=== PATIENT | male | born 1935 | race Caucasian/White ===

== ENCOUNTER → 2016-11-10 | Outpatient (CLI) | payer MEDICARE ==
[~2016-11-10] MED LIST: ACET-311; ASPI-3 PO; ATOR20TA58; CLOP75TA; DOXA4TAB3; FENO160T; LISI10TA2; METF500T4; METO50TA2; MULT-658
--- NOTE | 2016-11-10 15:56 | CARD ---
APPROVED REPORT EXAM: Two-dimensional and M-mode echocardiogram with Doppler and color Doppler. Other Information Quality : Average Rhythm : Pacemaker INDICATION Dyspnea Fatigue Cardiomyopathy 2D DIMENSIONS RVDd2.6 (2.9-3.5cm)Left Atrium(2D)3.1 (1.6-4.0cm) IVSd1.2 (0.7-1.1cm)Aortic Root(2D)3.4 (2.0-3.7cm) LVDd5.4 (3.9-5.9cm)LVOT Diameter2.1 (1.8-2.4cm) PWd1.2 (0.7-1.1cm)LVDs4.9 (2.5-4.0cm) SV28.5 mlLVEF(%)38.0 (>50%) Aortic Valve AoV Peak Zoran.98.6cm/sAoV VTI21.0cm AO Peak GR.3.9mmHgLVOT Peak Zoran.76.4cm/s AO Mean GR.2mmHgAVA (VMAX)2.63cm2 AI P 1/2 Mclv182dk Mitral Valve MV E Zyjynijb12.7cm/sMV DECEL DTTI114an MV A Jtgiywpl24.6cm/sMV BWZ18kk E/A Ratio1.1MV A Hvdrbdog084ik MVA (PHT)4.36cm2 Tricuspid Valve TR P. Xhwzkaai464hy/sRAP BWIBLDDN5bdTn TR Peak Gr.17pjThEIBP85stBr LEFT VENTRICLE The left ventricle is normal size. There is borderline concentric left ventricular hypertrophy. Left ventricle systolic function is moderately impaired. The Ejection Fraction is 38%. There is global hyp okinesis of the left ventricle more moderate in the basal inferior wall. The left ventricular diastol ic function and filling is normal for age. RIGHT VENTRICLE The right ventricle is normal size. The right ventricular systolic function is normal. There is a pac emaker/ICD lead in the RV/RA. ATRIA The left atrium size is normal. The right atrium size is normal. The interatrial septum is intact wit h no evidence for an atrial septal defect or patent foramen ovale as noted on 2-D or Doppler imaging. AORTIC VALVE The aortic valve is calcified but opens well. The aortic valve is trileaflet. Doppler and Color Flow revealed mild aortic regurgitation. There is no significant aortic valvular stenosis. MITRAL VALVE Mitral annular calcification is mild to moderate. There is no mitral valve stenosis. Doppler and Gueydan r Flow revealed mild mitral regurgitation. TRICUSPID VALVE The tricuspid valve is normal in structure Doppler and Color Flow revealed mild tricuspid regurgitati on. The PA pressure was estimated at 26 mmHg. There is no tricuspid valve stenosis. PULMONIC VALVE The pulmonic valve is not well visualized. Doppler and Color Flow revealed mild pulmonic valvular reg urgitation. There is no pulmonic valvular stenosis. GREAT VESSELS The aortic root is normal in size. The IVC is normal in size and collapses >50% with inspiration. PERICARDIAL EFFUSION There is no evidence of significant pericardial effusion. Critical Notification Critical Value: No <Conclusion> Left ventricle systolic function is moderately impaired. The Ejection Fraction is 38%. There is global hypokinesis of the left ventricle more moderate in the basal inferior wall. There is borderline concentric left ventricular hypertrophy. The left atrium size is normal. The right atrium size is normal. The aortic valve is calcified but opens well. The aortic valve is trileaflet. Doppler and Color Flow revealed mild aortic regurgitation. Mitral annular calcification is mild to moderate. Doppler and Color Flow revealed mild mitral regurgitation. Doppler and Color Flow revealed mild tricuspid regurgitation. The PA pressure was estimated at 26 mmHg. Doppler and Color Flow revealed mild pulmonic valvular regurgitation. There is no evidence of significant pericardial effusion.
== END | disposition home or self-care (01) ==
LOC: ECHO 13:24
PROVIDERS: ATTEND Internal Medicine Cardiovascular Disease
DX: I08.3 Combined rheumatic disorders of mitral, aortic and tricuspid valves (principal)
CPT/HCPCS: 93306

== ENCOUNTER → 2017-05-12 | Outpatient (CLI) | payer MEDICARE ==
--- NOTE | 2017-05-12 13:58 | CARD ---
APPROVED REPORT EXAM: Two-dimensional and M-mode echocardiogram with Doppler and color Doppler. Other Information Quality : Good INDICATION Cardiomyopathy Murmur 2D DIMENSIONS Left Atrium(2D)3.2 (1.6-4.0cm)IVSd1.3 (0.7-1.1cm) Aortic Root(2D)4.0 (2.0-3.7cm)LVDd4.5 (3.9-5.9cm) LVOT Diameter2.2 (1.8-2.4cm)PWd1.2 (0.7-1.1cm) LVDs3.1 (2.5-4.0cm)FS (%) 30.3 % SV54.0 mlLVEF(%)58.0 (>50%) Aortic Valve AoV Peak Zoran.112.9cm/sAoV VTI24.9cm AO Peak GR.5.1mmHgLVOT Peak Zoran.64.1cm/s AO Mean GR.3mmHgAVA (VMAX)2.15cm2 CARL (VTI)2.64ck6YY P 1/2 Iwvm718ls Mitral Valve MV E Vwnukfhv07.5cm/sMV DECEL YMHK021ad MV A Vgupmqxp51.9cm/sE/A Ratio0.5 Tricuspid Valve TR P. Voqxjiak266nb/sRAP IVUNBBNS0iaHu TR Peak Gr.79asFiSDHU50esNs LEFT VENTRICLE The left ventricle is normal size. There is mild concentric left ventricular hypertrophy. Left ventri kelli systolic function is low normal. The estimated Ejection Fraction is 58%. There is mild to moderat e hypokinesis in the mid septal wall. Septal motion consistent with post-operative state. Transmitral Doppler flow pattern is Grade I-abnormal relaxation pattern. RIGHT VENTRICLE The right ventricle is normal size. The right ventricular systolic function is normal. Defibulator wi re seen in right ventricle and right atria. ATRIA The left atrium size is normal. The right atrium size is normal. The interatrial septum is intact wit h no evidence for an atrial septal defect or patent foramen ovale as noted on 2-D or Doppler imaging. AORTIC VALVE The aortic valve is mildly thickened but opens well. Doppler and Color Flow revealed mild aortic regu rgitation. There is no significant aortic valvular stenosis. MITRAL VALVE The mitral valve is mildly thickened. There is no evidence of mitral valve prolapse. There is no mitr al valve stenosis. Doppler and Color-flow revealed mild mitral regurgitation. TRICUSPID VALVE The tricuspid valve is normal in structure Doppler and Color Flow revealed mild tricuspid regurgitati on. There is no pulmonary hypertension. The PA pressure was estimated at 27 mmHg. There is no tricusp id valve stenosis. PULMONIC VALVE The pulmonic valve is mildly thickened. Doppler and Color Flow revealed mild pulmonic valvular regurg itation. There is no pulmonic valvular stenosis. GREAT VESSELS The aortic root appears mildly dilatedl in size. The ascending aorta is normal in size. The IVC is no rmal in size and collapses >50% with inspiration. PERICARDIAL EFFUSION There is no pleural effusion. There is no evidence of significant pericardial effusion. Critical Notification Critical Value: No <Conclusion> There is mild to moderate hypokinesis in the mid septal wall. Septal motion consistent with post-operative state. Transmitral Doppler flow pattern is Grade I-abnormal relaxation pattern. Defibulator wire seen in right ventricle and right atria. The left atrium size is normal. The right atrium size is normal. The aortic valve is mildly thickened but opens well. Doppler and Color Flow revealed mild aortic regurgitation. Doppler and Color-flow revealed mild mitral regurgitation. Doppler and Color Flow revealed mild tricuspid regurgitation. There is no pulmonary hypertension. The PA pressure was estimated at 27 mmHg. Doppler and Color Flow revealed mild pulmonic valvular regurgitation. The aortic root appears mildly dilatedl in size. There is no evidence of significant pericardial effusion.
== END | disposition home or self-care (01) ==
LOC: ECHO 08:30
PROVIDERS: ATTEND Internal Medicine Cardiovascular Disease
DX: I08.3 Combined rheumatic disorders of mitral, aortic and tricuspid valves (principal); I42.9 Cardiomyopathy, unspecified; I25.5 Ischemic cardiomyopathy; R01.1 Cardiac murmur, unspecified
CPT/HCPCS: 93306

== ENCOUNTER 2017-12-07 10:10 | Outpatient (CLI) | payer MEDICARE ==
[2017-12-07 11:07] LABS: ANION GAP 8 (6-14); BLOOD UREA NITROGEN 15 mg/dL (8-26); CALCIUM 9.1 mg/dL (8.5-10.1); CARBON DIOXIDE 29 mmol/L (21-32); CHLORIDE 109 mmol/L (98-107); CREATININE 1.4 mg/dL (0.7-1.3); GFR 48.8; GLUCOSE 114 mg/dL (70-99); POTASSIUM 4.8 mmol/L (3.5-5.1); SODIUM 146 mmol/L (136-145)
[2017-12-07 11:16] LABS: HEMATOCRIT 37.4 % (39.0-53.0); HEMOGLOBIN 12.7 g/dL (13.0-17.5); MEAN CORPUSCULAR HEMOGLOBIN 30 pg (25-35); MEAN CORPUSCULAR HGB CONC 34 g/dL (31-37); MEAN CORPUSCULAR VOLUME 87 fL (79-100); PLATELET COUNT 146 x10^3/uL (140-400); RED BLOOD COUNT 4.28 x10^6/uL (4.30-5.70); RED CELL DISTRIBUTION WIDTH 13.3 % (11.5-14.5); WHITE BLOOD COUNT 5.4 x10^3/uL (4.0-11.0)
[2017-12-07 11:26] LABS: INR 1.1 (0.8-1.1); PROTHROMBIN TIME PATIENT 13.8 SEC (11.7-14.0)
[2017-12-07] MEDS ORDERED: LIDOCAINE 2%/EPI 1:100,000 20 ML VIAL. (12:04)
[2017-12-07] MEDS ORDERED: fentaNYL PF VIAL 100 MCG/2 ML VIAL (13:01)
[2017-12-07] MEDS: BACITRACIN 50,000 UNIT in IV NORMAL SALINE 250ML 250 ML IRR (13:50)
[2017-12-07] MEDS: LIDOCAINE 2%/EPI 1:100,000 20 ML VIAL. IJ (13:50)
[2017-12-07] MEDS: ceFAZolin SODIUM IV Push 1 GM VIAL. IVP (13:50)
[2017-12-07] MEDS: fentaNYL PF VIAL 100 MCG/2 ML VIAL IV (13:51)
[2017-12-07] MEDS: MIDAZOLAM HCL/PF 2 MG/2 ML VIAL. IV (13:51)
== END 2017-12-07 15:15 | disposition home or self-care (01) ==
LOC: CCL 10:10
DX: Z45.02 Encounter for adjustment and management of automatic implantable cardiac defibrillator (principal); I49.5 Sick sinus syndrome; I11.0 Hypertensive heart disease with heart failure; I50.9 Heart failure, unspecified; I25.10 Atherosclerotic heart disease of native coronary artery without angina pectoris; Z95.1 Presence of aortocoronary bypass graft; Z95.810 Presence of automatic (implantable) cardiac defibrillator; I47.2 Ventricular tachycardia; Z88.1 Allergy status to other antibiotic agents; Z98.42 Cataract extraction status, left eye; Z98.41 Cataract extraction status, right eye; Z95.5 Presence of coronary angioplasty implant and graft; E78.00 Pure hypercholesterolemia, unspecified; K21.9 Gastro-esophageal reflux disease without esophagitis; Z85.46 Personal history of malignant neoplasm of prostate; Z87.440 Personal history of urinary (tract) infections; M19.90 Unspecified osteoarthritis, unspecified site; E11.9 Type 2 diabetes mellitus without complications; F41.9 Anxiety disorder, unspecified; F17.200 Nicotine dependence, unspecified, uncomplicated; Z79.84 Long term (current) use of oral hypoglycemic drugs; Z85.840 Personal history of malignant neoplasm of eye; Z79.899 Other long term (current) drug therapy; I08.0 Rheumatic disorders of both mitral and aortic valves; I42.9 Cardiomyopathy, unspecified; Z83.3 Family history of diabetes mellitus; Z82.49 Family history of ischemic heart disease and other diseases of the circulatory system; Z79.82 Long term (current) use of aspirin; Z91.011 Allergy to milk products
CPT/HCPCS: 33263; 36415; 80048; 85027; 85610; 99152; 99153; C1721; J0690; J2250; J3010; J3490; J7050

== ENCOUNTER → 2018-01-15 | Outpatient (CLI) | payer MEDICARE ==
[2018-01-15] MEDS: IOHEXOL 240 MG/ML 50ML VIAL. PO (08:30)
[2018-01-15] MEDS: IOHEXOL 300 MG/ML 100ML VIAL. IV (09:15)
== END | disposition home or self-care (01) ==
LOC: CT 07:48
DX: I71.4 Abdominal aortic aneurysm, without rupture (principal); K57.30 Diverticulosis of large intestine without perforation or abscess without bleeding; K86.2 Cyst of pancreas; I11.0 Hypertensive heart disease with heart failure; I50.9 Heart failure, unspecified; E11.9 Type 2 diabetes mellitus without complications; E78.5 Hyperlipidemia, unspecified
CPT/HCPCS: 74177; Q9966; Q9967

== ENCOUNTER 2018-02-24 12:46 | Emergency (ER) | payer MEDICARE ==
[~2018-02-24] VITALS: Ht 167.6 cm; Wt 53.1 kg
[~2018-02-24 12:46] MED LIST changes: +DIGO125T PO; -METF500T4; +METF500T5; -METO50TA2; +METO50TA6; +MEXI200C PO; +TAMS0.4C2 PO; +melatonin PO
[2018-02-24 12:55] VITALS: BP 120/81
--- NOTE | 2018-02-24 13:12 | PHYS DOC ---
Past Medical History Past Medical History: Diabetes-Type II, Heart Disease, Hypertension Additional Past Medical Histor: Eye Cancer, Prostate Cancer Past Surgical History: Pacemaker Additional Past Surgical Histo: Prostatectomy, Left Eye Surgery, Defib Placement Alcohol Use: None Drug Use: None Adult General Chief Complaint Chief Complaint: INSECT BITE HPI HPI Patient is an 82 year old male with a history of diabetes whom presents to the ED complaining redness to left lower leg x 1 day ago. States a circular red rash appeared one day ago. States he is unsure if he was bit by something. States it doesnt hurt and isnt warm. [place] and may have been bitten by a tick. Thinks that the rash is close in appearance to the Lyme disease rash. States he never picked a tick off of him. Denies pain, nausea/vomiting, neck pain, photophobia, fever, night sweats, chest pain, shortness of breath, abdominal pain, joint pain, swollen lymph nodes , or weakness. Review of Systems Review of Systems Constitutional: Denies fever or chills [] Eyes: Denies change in visual acuity, redness, or eye pain [] HENT: Denies nasal congestion or sore throat [] Respiratory: Denies cough or shortness of breath [] Cardiovascular: No additional information not addressed in HPI [] GI: Denies abdominal pain, nausea, vomiting, bloody stools or diarrhea [] : Denies dysuria or hematuria [] Musculoskeletal: Denies back pain or joint pain [] Integument: Complains of rash to left lower leg. Denies skin lesions [] Neurologic: Denies headache, focal weakness or sensory changes [] All other systems were reviewed and found to be within normal limits, except as documented in this note. Allergies Allergies Allergies Coded Allergies Type Severity Reaction Last Updated Verified Sulfa (Sulfonamide Antibiotics) Allergy Unknown 02/03/14 Yes Physical Exam Physical Exam Constitutional: Well developed, well nourished, no acute distress, non-toxic appearance. [] HENT: Normocephalic, atraumatic Eyes: PERRLA, EOMI, conjunctiva normal, no discharge. [] Neck: Normal range of motion, no tenderness, supple, no stridor. [] Cardiovascular:Heart rate regular rhythm, no murmur [] Lungs & Thorax: Bilateral breath sounds clear to auscultation [] Abdomen: Bowel sounds normal, soft, no tenderness, no masses, no pulsatile masses. [] Skin: Warm, dry. erythematous annular rash with central clearing to left proximal tibia area. Back: No tenderness, no CVA tenderness. [] Extremities: No tenderness, no cyanosis, no clubbing, ROM intact, no edema. [] Neurologic: Alert and oriented X 3, normal motor function, normal sensory function, no focal deficits noted. [] Psychologic: Affect normal, judgement normal, mood normal. [] Current Patient Data Vital Signs Vital Signs Date Time Temp Pulse Resp B/P (MAP) Pulse Ox O2 Delivery O2 Flow Rate FiO2 02/24/18 12:55 98.5 60 20 120/81 (94) 97 Room Air 98.5 EKG EKG [] Radiology/Procedures Radiology/Procedures [] Course & Med Decision Making Course & Med Decision Making Pertinent Labs and Imaging studies reviewed. (See chart for details) []Erythematous annular like rash with central clearing which would possibly be related to a tick bite. Patient has no systemic symptoms or swollen lymph nodes.. We'll place patient on doxycycline. Patient has follow-up with his PCP tomorrow for blood testing and further evaluation. Discussed symptomatic treatment in the meantime. Discussed follow-up and reasons to return to the ED. Patient understands and agrees with plan. Went bedside. Dragon Disclaimer Dragon Disclaimer This electronic medical record was generated, in whole or in part, using a voice recognition dictation system. Departure Departure Impression: Primary Impression: Rash Disposition: 01 HOME, SELF-CARE Condition: STABLE Referrals: ADRIAN JOHNSON MD (PCP) Patient Instructions: Lyme Disease Scripts Doxycycline Hyclate (DOXYCYCLINE HYCLATE) 100 Mg Tablet. 1 TAB PO BID for 10 Days, #20 TAB Prov: DEV AVERY 02/24/18 DEV AVERY Feb 24, 2018 13:12
[2018-02-24] MEDS ORDERED: DOXY100T9 PO (13:19)
== END 2018-02-24 13:20 | disposition home or self-care (01) ==
LOC: ER 12:46
DX: R21 Rash and other nonspecific skin eruption (principal); E11.9 Type 2 diabetes mellitus without complications; I11.9 Hypertensive heart disease without heart failure; Z95.0 Presence of cardiac pacemaker; Z88.0 Allergy status to penicillin
CPT/HCPCS: 99283

== ENCOUNTER 2018-05-07 14:16 | Inpatient (IN) | payer MEDICARE ==
[~2018-05-07] VITALS: Ht 167.6 cm; Wt 52.2 kg
[~2018-05-07 14:16] MED LIST changes: +CEPH-264 PO; +DOXY100T9 PO; +FLEC50TA PO; +MAGN400T22 PO; +METF500T16; -METF500T5
--- NOTE | 2018-05-07 15:10 | PHYS DOC ---
Past Medical History Past Medical History: Diabetes-Type II, Heart Disease, Hypertension Additional Past Medical Histor: Eye Cancer, Prostate Cancer Past Surgical History: Angioplasty, Coronary Bypass Surgery, Pacemaker Additional Past Surgical Histo: Prostatectomy, Left Eye Surgery, Defib Placement, CARDIAC STENTS Alcohol Use: Occasionally Drug Use: None Adult General Chief Complaint Chief Complaint: AICD FIRED OR SHOCKED HPI HPI Patient is an 83-year-old male with a past history of coronary artery disease, CABG, history of ventricular tachycardia, status post and ICD placement, who presents to the emergency department for evaluation. He states he had just finished doing some yard work and was winding up and rolling up his garden hose , when he began experiencing some dizziness and lightheadedness. He states he did not have any chest pain at the time but this lasted several minutes, and he states he went inside. He states he sat down and felt slightly better although he still felt dizzy, and throughout this entire episode he felt his heart beating fast. He states without warning he felt the defibrillator shock, and after that his symptoms resolved. He is feeling back to his baseline now and has no complaints. He has not had any nausea or vomiting, denies any significant shortness of breath. He states he has had defibrillator discharges in the past, last one was over a year ago. There are no alleviating, or exacerbating factors to his symptoms otherwise. Review of Systems Review of Systems Constitutional: Denies fever or chills [] Eyes: Denies change in visual acuity, redness, or eye pain [] HENT: Denies nasal congestion or sore throat [] Respiratory: Denies cough or shortness of breath [] Cardiovascular: The patient denies any shortness of breath, chest pain, palpitations, or orthopnea. Did report palpitations earlier, terminated by the defibrillator discharge. [] GI: Denies abdominal pain, nausea, vomiting, bloody stools or diarrhea [] : Denies dysuria or hematuria [] Musculoskeletal: Denies back pain or joint pain [] Integument: Denies rash or skin lesions [] Neurologic: Denies headache, focal weakness or sensory changes [] Endocrine: Denies polyuria or polydipsia [] All other systems were reviewed and found to be within normal limits, except as documented in this note. Current Medications Current Medications Current Medications Medications (Trade) Dose Ordered Sig/Deidra Start Time Stop Time Status Last Admin Dose Admin Aspirin (Children'S Aspirin) 324 mg 1X ONCE 05/07/18 15:15 05/07/18 15:16 DC 05/07/18 15:14 324 MG Allergies Allergies Allergies Coded Allergies Type Severity Reaction Last Updated Verified Sulfa (Sulfonamide Antibiotics) Allergy Unknown 02/03/14 Yes Physical Exam Physical Exam PHYSICAL EXAM: CONSTITUTIONAL: Well developed, well nourished HEAD: normocephalic, atraumatic EENT: PERRL, EOMI. Conjunctivae normal color, sclerae non-icteric; moist mucous membranes. NECK: Supple, non-tender; no meningismus. LUNGS: Lungs CTA, breathing even and unlabored. Normal air movement. HEART: Regular rate and rhythm, there is a soft systolic murmur CHEST: No deformity; non-tender ABDOMEN: The abdomen is soft, and non-tender, no masses or bruits. EXTREM: Normal ROM; no deformity, no calf tenderness. Normal pulses palpable in all extremities. There is no pedal edema. SKIN: No rash; no diaphoresis NEURO: Alert; normal speech and cognition; CN's grossly intact; strength grossly intact without focal deficit. BACK: No CVA TTP. Current Patient Data Vital Signs Vital Signs Date Time Temp Pulse Resp B/P (MAP) Pulse Ox O2 Delivery O2 Flow Rate FiO2 05/07/18 14:25 97.3 57 18 148/64 (92) 98 Room Air 97.3 Lab Values Laboratory Tests Test 05/07/18 15:37 White Blood Count 6.0 x10^3/uL (4.0-11.0) Red Blood Count 3.68 x10^6/uL (4.30-5.70) L Hemoglobin 10.7 g/dL (13.0-17.5) L Hematocrit 31.9 % (39.0-53.0) L Mean Corpuscular Volume 87 fL (79-100) Mean Corpuscular Hemoglobin 29 pg (25-35) Mean Corpuscular Hemoglobin Concent 34 g/dL (31-37) Red Cell Distribution Width 14.0 % (11.5-14.5) Platelet Count 198 x10^3/uL (140-400) Neutrophils (%) (Auto) 77 % (31-73) H Lymphocytes (%) (Auto) 11 % (24-48) L Monocytes (%) (Auto) 8 % (0-9) Eosinophils (%) (Auto) 4 % (0-3) H Basophils (%) (Auto) 1 % (0-3) Neutrophils # (Auto) 4.6 x10^3uL (1.8-7.7) Lymphocytes # (Auto) 0.7 x10^3/uL (1.0-4.8) L Monocytes # (Auto) 0.5 x10^3/uL (0.0-1.1) Eosinophils # (Auto) 0.2 x10^3/uL (0.0-0.7) Basophils # (Auto) 0.0 x10^3/uL (0.0-0.2) Sodium Level 140 mmol/L (136-145) Potassium Level 4.4 mmol/L (3.5-5.1) Chloride Level 104 mmol/L (98-107) Carbon Dioxide Level 25 mmol/L (21-32) Anion Gap 11 (6-14) Blood Urea Nitrogen 24 mg/dL (8-26) Creatinine 1.3 mg/dL (0.7-1.3) Estimated GFR (Cockcroft-Gault) 53.0 BUN/Creatinine Ratio 18 (6-20) Glucose Level 114 mg/dL (70-99) H Calcium Level 9.2 mg/dL (8.5-10.1) Magnesium Level 1.6 mg/dL (1.8-2.4) L Total Bilirubin 0.3 mg/dL (0.2-1.0) Aspartate Amino Transferase (AST) 19 U/L (15-37) Alanine Aminotransferase (ALT) 21 U/L (16-63) Alkaline Phosphatase 39 U/L (46-116) L Troponin I Quantitative 0.052 ng/mL (0.000-0.055) Total Protein 6.5 g/dL (6.4-8.2) Albumin 3.1 g/dL (3.4-5.0) L Albumin/Globulin Ratio 0.9 (1.0-1.7) L Laboratory Tests 05/07/18 15:37 Laboratory Tests 05/07/18 15:37 EKG EKG [Normal sinus rhythm at a rate of 57 beats for minute, right axis deviation, right bundle-branch block, inferior Q waves are present. There are no acute ischemic ST/T changes.] Radiology/Procedures Radiology/Procedures [PROCEDURE: PORTABLE CHEST 1V Portable chest, 05/07/2018: HISTORY: Dizziness There has been a previous median sternotomy. A left-sided AICD remains in place with a single lead extending into the right ventricle. Faint wire-like opacities overlying the heart are compatible with old epicardial leads. The heart size and pulmonary vascularity are normal. There is calcific plaquing of the aorta. No pulmonary infiltrate is seen. There is no evidence of pleural fluid. IMPRESSION: No acute cardiopulmonary abnormality is detected.] Course & Med Decision Making Course & Med Decision Making Pertinent Labs and Imaging studies reviewed. (See chart for details) [4:15 PM: The patient's condition remained stable. He has had no further symptoms. Interrogation of his defibrillator confirm that between about 1:33 and 1:39 PM this afternoon, he had 6 separate episodes of ventricular tachycardia. One episode self terminated, and 5 episodes were terminated with antitachycardia pacing after less than 20 seconds. The final episode went on for just under 1 minute, and required a defibrillatory shock after failure of antitachycardia pacing. I discussed the patient with Dr. Rodas, his high risk ob, who states that he has been adjusting the patient's antiarrhythmic medications, and would like him hospitalized for further evaluation and treatment. I spoke with Dr. Meng, covering for the patient's PCP , who will admit the patient.] Dragon Disclaimer Dragon Disclaimer This electronic medical record was generated, in whole or in part, using a voice recognition dictation system. Departure Departure Impression: Primary Impression: Paroxysmal ventricular tachycardia Additional Impressions: Hypomagnesemia Defibrillator discharge Disposition: 09 ADMITTED INPATIENT Admitting Physician: Emmie Meng Condition: STABLE Referrals: ADRIAN JOHNSON MD (PCP) Problem Qualifiers TIARA GOMEZ MD May 07, 2018 15:10
[2018-05-07] MEDS ORDERED: ASPIRIN CHEWABLE 81 MG TABLET. PO ONE (15:15)
[2018-05-07 15:47] LABS: BASO % 1 % (0-3); EOS # 0.2 x10^3/uL (0.0-0.7); EOS % 4 % (0-3); HEMATOCRIT 31.9 % (39.0-53.0); HEMOGLOBIN 10.7 g/dL (13.0-17.5); LYMPH # 0.7 x10^3/uL (1.0-4.8); LYMPH % 11 % (24-48); MEAN CORPUSCULAR HEMOGLOBIN 29 pg (25-35); MEAN CORPUSCULAR HGB CONC 34 g/dL (31-37); MEAN CORPUSCULAR VOLUME 87 fL (79-100); MONO # 0.5 x10^3/uL (0.0-1.1); MONO % 8 % (0-9); NEUT # 4.6 x10^3uL (1.8-7.7); NEUT % 77 % (31-73); PLATELET COUNT 198 x10^3/uL (140-400); RED BLOOD COUNT 3.68 x10^6/uL (4.30-5.70)
[2018-05-07 16:03] LABS: CALCIUM 9.2 mg/dL (8.5-10.1); CREATININE 1.3 mg/dL (0.7-1.3); POTASSIUM 4.4 mmol/L (3.5-5.1)
--- NOTE | 2018-05-07 16:07 | RAD ---
Portable chest, 05/07/2018: HISTORY: Dizziness There has been a previous median sternotomy. A left-sided AICD remains in place with a single lead extending into the right ventricle. Faint wire-like opacities overlying the heart are compatible with old epicardial leads. The heart size and pulmonary vascularity are normal. There is calcific plaquing of the aorta. No pulmonary infiltrate is seen. There is no evidence of pleural fluid. IMPRESSION: No acute cardiopulmonary abnormality is detected. Electronically signed by: Tuan Joya MD (05/07/2018 4:03 PM) [facility]
[2018-05-07 16:09] LABS: ALBUMIN 3.1 g/dL (3.4-5.0); ALBUMIN/GLOBULIN RATIO 0.9 (1.0-1.7); MAGNESIUM 1.6 mg/dL (1.8-2.4); TOTAL BILIRUBIN 0.3 mg/dL (0.2-1.0); TOTAL PROTEIN 6.5 g/dL (6.4-8.2)
[2018-05-07 16:17] LABS: CREATINE KINASE 28 U/L (39-308)
--- NOTE | 2018-05-07 16:19 | EKG ---
[facility] [address] [place] [address] Test Date: 2018-05-07 Test Time: 14:28:40 Pat Name: FRANK VAUGHN Department: Room: Gender: M Technology Director: : 1935 Requested By: TIARA GOMEZ Order Number: [id number] Reading MD: Goran Larson MD Measurements Intervals [place] Rate: 57 P: -90 [place]: 174 QRS: 126 QRSD: 164 T: 3 QT: 462 QTc: 453 Interpretive Statements SINUS RHYTHM RBBB LPFB Electronically Signed On 05-08-2018 9:42:03 CDT by Goran Larson MD
[2018-05-07] MEDS ORDERED: MAGNESIUM SULFATE 1GM 100 ML IV ONE (16:45)
[2018-05-07 18:37] VITALS: BP 174/49
[2018-05-07] MEDS ORDERED: MAGN400C PO (18:46)
[2018-05-07] MEDS: PROPAFENONE 150 MG TABLET. PO SCH (20:50)
[2018-05-07] MEDS: diphenhydrAMINE HCL 25 MG CAPSULE PO SCH (20:50)
[2018-05-07] MEDS: ACETAMINOPHEN 500 MG TABLET PO SCH (20:50)
[2018-05-07] MEDS: ATORVASTATIN CALCIUM 20 MG TABLET PO SCH (20:51)
[2018-05-07] MEDS: metFORMIN 500 MG TABLET PO SCH (20:51)
[2018-05-07] MEDS ORDERED: MELATONIN 10 MG PO SCH (21:00)
[2018-05-07 22:31] VITALS: BP 141/63
[2018-05-08 02:30] VITALS: BP 122/56
[2018-05-08 07:30] VITALS: BP 117/62
--- NOTE | 2018-05-08 08:57 | PDOC1 ---
History and Physical Date of Admission Date of Admission 05/07/18 Identification/Chief Complaint Chief Complaint AICD fired after rolling up hose at home Source Source: Chart review, Patient History of Present Illness History of Present Illness He got lightheaded and his AICD fired while rolling up hose yesterday, came to ER and found to have low Mg and mildly elevated troponin and pro - BNP Past Medical History Cardiovascular: AFIB, CAD, HTN, Other Pulmonary: Bronchitis GI: GERD Heme/Onc: Cancer (melanoma of eye, left) Hepatobiliary: No pertinent hx Psych: No pertinent hx, Other Rheumatologic: Other (OA, spinal stenosis of lumbar spine) Infectious disease: No pertinent hx ENT: No pertinent hx Renal/: Chronic renal insuff, Prostate Ca. Endocrine: Diabetes Dermatology: No pertinent hx Past Surgical History Past Surgical History: Pacemaker, CABG, Other (left eye tumor removal, lift) Family History Family History: Diabetes, Heart Disease Social History Smoke: No ALCOHOL: none Drugs: None Current Problem List Problem List Problems Medical Problems: (1) Defibrillator discharge Status: Acute Current Medications Current Medications Current Medications Medications (Trade) Dose Ordered Sig/Deidra Start Time Stop Time Status Last Admin Dose Admin Acetaminophen (Tylenol) 500 mg QHS 05/07/18 21:00 05/07/18 20:50 500 MG Aspirin (Children'S Aspirin) 324 mg 1X ONCE 05/07/18 15:15 05/07/18 15:16 DC 05/07/18 15:14 324 MG Aspirin (Ecotrin) 325 mg DAILY16 05/08/18 16:00 Atorvastatin Calcium (Lipitor) 20 mg DAILY16 05/07/18 19:30 05/07/18 20:51 20 MG Diphenhydramine HCl (Benadryl) 25 mg QHS 05/07/18 21:00 05/07/18 20:50 25 MG Fenofibrate (Lofibra) 134 mg DAILY 05/08/18 09:00 Magnesium Oxide (Magnesium Oxide) 400 mg DAILY 05/08/18 09:00 Magnesium Sulfate/ Dextrose 100 ml @ 100 mls/hr 1X ONCE 05/07/18 16:45 05/07/18 17:44 DC 05/07/18 16:47 100 MLS/HR Metformin HCl (Glucophage) 500 mg BIDWMEALS 05/07/18 19:30 05/07/18 20:51 500 MG Multivitamins (Thera M Plus) 1 tab DAILY 05/08/18 09:00 Non-Formulary Medication ([melatonin] ) 10 mg QHS 05/07/18 21:00 UNV Propafenone HCl (Rythmol) 150 mg BID 05/07/18 21:00 05/07/18 20:50 150 MG Allergies Allergies Allergies Coded Allergies Type Severity Reaction Last Updated Verified Milk Containing Products Allergy Unknown 05/07/18 Yes ROS Review of System CONSTITUTIONAL: No fever or chills EYES: No recent changes SKIN: No rash or itching CARDIOVASCULAR: No chest pain, syncope, palpitations, or edema RESPIRATORY: No SOB or cough GASTROINTESTINAL: No nausea, vomiting or abdominal pain NEUROLOGICAL: No headaches or weakness ENDOCRINE: No cold or heat intolerance GENITOURINARY: No urgency or frequency of urination MUSCULOSKELETAL: chronic back pain or joint pain LYMPHATICS: No enlarged lymph nodes PSYCHIATRIC: No anxiety or depression Physical Exam Physical Exam GEN.: No apparent distress. Alert and oriented. HEENT: Head is normocephalic, atraumatic NECK: Supple. CHEST: no tenderness, AICD in place LUNGS: Clear to auscultation. HEART: RRR, S1, S2 present. Peripheral pulses intact ABDOMEN: Soft, nontender. Positive bowel sounds. EXTREMITIES: Without any cyanosis. NEUROLOGIC: Normal speech, normal tone PSYCHIATRIC: Normal affect, normal mood. SKIN: No ulcerations Vitals Vitals Vital Signs Date Time Temp Pulse Resp B/P (MAP) Pulse Ox O2 Delivery O2 Flow Rate FiO2 05/08/18 07:30 98.0 66 16 117/62 (80) 98 Room Air 98.0 Labs Labs Laboratory Tests Test 05/07/18 15:37 05/07/18 19:25 05/07/18 22:20 05/08/18 07:41 White Blood Count 6.0 x10^3/uL (4.0-11.0) Red Blood Count 3.68 x10^6/uL (4.30-5.70) Hemoglobin 10.7 g/dL (13.0-17.5) Hematocrit 31.9 % (39.0-53.0) Mean Corpuscular Volume 87 fL (79-100) Mean Corpuscular Hemoglobin 29 pg (25-35) Mean Corpuscular Hemoglobin Concent 34 g/dL (31-37) Red Cell Distribution Width 14.0 % (11.5-14.5) Platelet Count 198 x10^3/uL (140-400) Neutrophils (%) (Auto) 77 % (31-73) Lymphocytes (%) (Auto) 11 % (24-48) Monocytes (%) (Auto) 8 % (0-9) Eosinophils (%) (Auto) 4 % (0-3) Basophils (%) (Auto) 1 % (0-3) Neutrophils # (Auto) 4.6 x10^3uL (1.8-7.7) Lymphocytes # (Auto) 0.7 x10^3/uL (1.0-4.8) Monocytes # (Auto) 0.5 x10^3/uL (0.0-1.1) Eosinophils # (Auto) 0.2 x10^3/uL (0.0-0.7) Basophils # (Auto) 0.0 x10^3/uL (0.0-0.2) Sodium Level 140 mmol/L (136-145) Potassium Level 4.4 mmol/L (3.5-5.1) Chloride Level 104 mmol/L (98-107) Carbon Dioxide Level 25 mmol/L (21-32) Anion Gap 11 (6-14) Blood Urea Nitrogen 24 mg/dL (8-26) Creatinine 1.3 mg/dL (0.7-1.3) Estimated GFR (Cockcroft-Gault) 53.0 BUN/Creatinine Ratio 18 (6-20) Glucose Level 114 mg/dL (70-99) Calcium Level 9.2 mg/dL (8.5-10.1) Magnesium Level 1.6 mg/dL (1.8-2.4) Total Bilirubin 0.3 mg/dL (0.2-1.0) Aspartate Amino Transf (AST/SGOT) 19 U/L (15-37) Alanine Aminotransferase (ALT/SGPT) 21 U/L (16-63) Alkaline Phosphatase 39 U/L (46-116) Creatine Kinase 28 U/L (39-308) Creatine Kinase MB (Mass) 0.7 ng/mL (0.0-3.6) Creatine Kinase MB Relative Index % (0-4) Troponin I Quantitative 0.052 ng/mL (0.000-0.055) 0.148 ng/mL (0.000-0.055) 0.144 ng/mL (0.000-0.055) HR-Cwl-B-Type Natriuretic Peptide 974 pg/mL (0-449) Total Protein 6.5 g/dL (6.4-8.2) Albumin 3.1 g/dL (3.4-5.0) Albumin/Globulin Ratio 0.9 (1.0-1.7) Glucose (Fingerstick) 74 mg/dL (70-99) Laboratory Tests Test 05/07/18 15:37 05/07/18 19:25 05/07/18 22:20 05/08/18 07:41 White Blood Count 6.0 x10^3/uL (4.0-11.0) Red Blood Count 3.68 x10^6/uL (4.30-5.70) Hemoglobin 10.7 g/dL (13.0-17.5) Hematocrit 31.9 % (39.0-53.0) Mean Corpuscular Volume 87 fL (79-100) Mean Corpuscular Hemoglobin 29 pg (25-35) Mean Corpuscular Hemoglobin Concent 34 g/dL (31-37) Red Cell Distribution Width 14.0 % (11.5-14.5) Platelet Count 198 x10^3/uL (140-400) Neutrophils (%) (Auto) 77 % (31-73) Lymphocytes (%) (Auto) 11 % (24-48) Monocytes (%) (Auto) 8 % (0-9) Eosinophils (%) (Auto) 4 % (0-3) Basophils (%) (Auto) 1 % (0-3) Neutrophils # (Auto) 4.6 x10^3uL (1.8-7.7) Lymphocytes # (Auto) 0.7 x10^3/uL (1.0-4.8) Monocytes # (Auto) 0.5 x10^3/uL (0.0-1.1) Eosinophils # (Auto) 0.2 x10^3/uL (0.0-0.7) Basophils # (Auto) 0.0 x10^3/uL (0.0-0.2) Sodium Level 140 mmol/L (136-145) Potassium Level 4.4 mmol/L (3.5-5.1) Chloride Level 104 mmol/L (98-107) Carbon Dioxide Level 25 mmol/L (21-32) Anion Gap 11 (6-14) Blood Urea Nitrogen 24 mg/dL (8-26) Creatinine 1.3 mg/dL (0.7-1.3) Estimated GFR (Cockcroft-Gault) 53.0 BUN/Creatinine Ratio 18 (6-20) Glucose Level 114 mg/dL (70-99) Calcium Level 9.2 mg/dL (8.5-10.1) Magnesium Level 1.6 mg/dL (1.8-2.4) Total Bilirubin 0.3 mg/dL (0.2-1.0) Aspartate Amino Transf (AST/SGOT) 19 U/L (15-37) Alanine Aminotransferase (ALT/SGPT) 21 U/L (16-63) Alkaline Phosphatase 39 U/L (46-116) Creatine Kinase 28 U/L (39-308) Creatine Kinase MB (Mass) 0.7 ng/mL (0.0-3.6) Creatine Kinase MB Relative Index % (0-4) Troponin I Quantitative 0.052 ng/mL (0.000-0.055) 0.148 ng/mL (0.000-0.055) 0.144 ng/mL (0.000-0.055) JQ-Xms-Y-Type Natriuretic Peptide 974 pg/mL (0-449) Total Protein 6.5 g/dL (6.4-8.2) Albumin 3.1 g/dL (3.4-5.0) Albumin/Globulin Ratio 0.9 (1.0-1.7) Glucose (Fingerstick) 74 mg/dL (70-99) VTE Prophylaxis Ordered VTE Prophylaxis Devices: No VTE Pharmacological Prophylaxi: Yes Assessment/Plan Assessment/Plan arrhythmia causing firing of AICD - admitted for cardiac monitoring, replacement of magnesium, cardiac consultation and start of Rythmol elevated troponin- likely from defibrillator shock hypomagnesemia - replace, he is not on a water pill cardiomyopathy Robert AZUL MD May 08, 2018 08:57
[2018-05-08] MEDS: MAGNESIUM OXIDE 400 MG TABLET PO SCH (09:02)
[2018-05-08] MEDS: FENOFIBRATE,MICRONIZED 134 MG CAPSULE PO SCH (09:02)
[2018-05-08] MEDS: PROPAFENONE 150 MG TABLET. PO SCH ×2 (09:02→20:47)
[2018-05-08] MEDS: MULTIVITAMIN with MINERAL TABLET. PO SCH (09:02)
[2018-05-08] MEDS: metFORMIN 500 MG TABLET PO SCH ×2 (09:02→16:58)
[2018-05-08 11:10] VITALS: BP 105/49
--- NOTE | 2018-05-08 13:45 | PDOC2 ---
CONSULT Date of Consult Date of Consult DATE: 05/08/18 TIME: 13:44 Reason for Consult Reason for Consult: Cardiac dysrhythmias and AICD firing Referring Physician Referring Physician: Dr Meng Identification/Chief Complaint Chief Complaint AICD firing Source Source: Patient History of Present Illness Reason for Visit: Patient is a pleasant 83 year old male that presents with chief complaint of AICD firing yesterday. Patient developed dizziness and lightheadedness as completing yardwork yesterday. He tried sitting down, which did not alleviate his symptoms. He then felt his AICD fire, which resolved his symptoms. Patient denies any current symptoms. Past Medical History Cardiovascular: AFIB, HTN, Other Pulmonary: Bronchitis GI: GERD Current Problem List Problem List Problems Medical Problems: (1) Defibrillator discharge Status: Acute Current Medications Current Medications Current Medications Aspirin (Children'S Aspirin) 324 mg 1X ONCE PO Last administered on at 15:14; Start 05/07/18 at 15:15; Stop 05/07/18 at 15:16; Status DC Magnesium Sulfate/ Dextrose 100 ml @ 100 mls/hr 1X ONCE IV Last administered on 05/07/18at 16:47; Start 05/07/18 at 16:45; Stop 05/07/18 at 17:44; Status DC Propafenone HCl (Rythmol) 150 mg BID PO Last administered on 05/08/18at 09:02; Start 05/07/18 at 21:00 Aspirin (Ecotrin) 325 mg DAILY16 PO ; Start 05/08/18 at 16:00 Atorvastatin Calcium (Lipitor) 20 mg DAILY16 PO Last administered on at 20:51; Start 05/07/18 at 19:30 Acetaminophen (Tylenol) 500 mg QHS PO Last administered on 05/07/18at 20:50; Start 05/07/18 at 21:00 Fenofibrate (Lofibra) 134 mg DAILY PO Last administered on 05/08/18at 09:02; Start 05/08/18 at 09:00 Magnesium Oxide (Magnesium Oxide) 400 mg DAILY PO Last administered on at 09:02; Start 05/08/18 at 09:00 Metformin HCl (Glucophage) 500 mg BIDWMEALS PO Last administered on 05/08/18at 09:02; Start 05/07/18 at 19:30 Multivitamins (Thera M Plus) 1 tab DAILY PO Last administered on 05/08/18at 09: 02; Start 05/08/18 at 09:00 Non-Formulary Medication ([melatonin] ) 10 mg QHS PO ; Start 05/07/18 at 21:00 ; Status UNV Diphenhydramine HCl (Benadryl) 25 mg QHS PO Last administered on 05/07/18at 20: 50; Start 05/07/18 at 21:00 Active Scripts Active Reported Magnesium (Magnesium Oxide) 400 Mg Capsule 250 Mg PO DAILY [melatonin] 10 Mg PO QHS Centrum Silver Tablet (Multivits-Min/Fa/Lycopene/Lut) 1 Each Tablet 1 Tab DAILY Acetadryl 500-25 Mg Caplet (Acetaminophen/Diphenhydramine) 1 Each Tablet 1 Tab HS Aspir-Marybeth (Aspirin) 325 Mg Tablet.dr 1 Tab PO DAILY16 Metformin Hcl 500 Mg Tablet 1 Tab BIDBFRMEAL Atorvastatin Calcium 20 Mg Tablet 1 Tab DAILY16 Fenofibrate 160 Mg Tablet 1 Tab DAILY Allergies Allergies: Coded Allergies: Milk Containing Products (Verified Allergy, Unknown, 05/07/18) ROS Cardiovascular: yes Lt Headedness Physical Exam General: Alert, Oriented X3, Cooperative, No acute distress Lungs: Clear to auscultation Heart: Normal S1, Normal S2, Other (bradycardic) Extremities: No clubbing, No cyanosis, No edema, Normal pulses Vitals VITALS Vital Signs Date Time Temp Pulse Resp B/P (MAP) Pulse Ox O2 Delivery O2 Flow Rate FiO2 05/08/18 11:10 97.4 49 16 105/49 (67) 96 Room Air 97.4 Labs Labs Laboratory Tests Test 05/07/18 15:37 05/07/18 19:25 05/07/18 22:20 05/08/18 07:41 White Blood Count 6.0 x10^3/uL (4.0-11.0) Red Blood Count 3.68 x10^6/uL (4.30-5.70) Hemoglobin 10.7 g/dL (13.0-17.5) Hematocrit 31.9 % (39.0-53.0) Mean Corpuscular Volume 87 fL (79-100) Mean Corpuscular Hemoglobin 29 pg (25-35) Mean Corpuscular Hemoglobin Concent 34 g/dL (31-37) Red Cell Distribution Width 14.0 % (11.5-14.5) Platelet Count 198 x10^3/uL (140-400) Neutrophils (%) (Auto) 77 % (31-73) Lymphocytes (%) (Auto) 11 % (24-48) Monocytes (%) (Auto) 8 % (0-9) Eosinophils (%) (Auto) 4 % (0-3) Basophils (%) (Auto) 1 % (0-3) Neutrophils # (Auto) 4.6 x10^3uL (1.8-7.7) Lymphocytes # (Auto) 0.7 x10^3/uL (1.0-4.8) Monocytes # (Auto) 0.5 x10^3/uL (0.0-1.1) Eosinophils # (Auto) 0.2 x10^3/uL (0.0-0.7) Basophils # (Auto) 0.0 x10^3/uL (0.0-0.2) Sodium Level 140 mmol/L (136-145) Potassium Level 4.4 mmol/L (3.5-5.1) Chloride Level 104 mmol/L (98-107) Carbon Dioxide Level 25 mmol/L (21-32) Anion Gap 11 (6-14) Blood Urea Nitrogen 24 mg/dL (8-26) Creatinine 1.3 mg/dL (0.7-1.3) Estimated GFR (Cockcroft-Gault) 53.0 BUN/Creatinine Ratio 18 (6-20) Glucose Level 114 mg/dL (70-99) Calcium Level 9.2 mg/dL (8.5-10.1) Magnesium Level 1.6 mg/dL (1.8-2.4) Total Bilirubin 0.3 mg/dL (0.2-1.0) Aspartate Amino Transf (AST/SGOT) 19 U/L (15-37) Alanine Aminotransferase (ALT/SGPT) 21 U/L (16-63) Alkaline Phosphatase 39 U/L (46-116) Creatine Kinase 28 U/L (39-308) Creatine Kinase MB (Mass) 0.7 ng/mL (0.0-3.6) Creatine Kinase MB Relative Index % (0-4) Troponin I Quantitative 0.052 ng/mL (0.000-0.055) 0.148 ng/mL (0.000-0.055) 0.144 ng/mL (0.000-0.055) TK-Rid-N-Type Natriuretic Peptide 974 pg/mL (0-449) Total Protein 6.5 g/dL (6.4-8.2) Albumin 3.1 g/dL (3.4-5.0) Albumin/Globulin Ratio 0.9 (1.0-1.7) Glucose (Fingerstick) 74 mg/dL (70-99) Laboratory Tests Test 05/07/18 15:37 05/07/18 19:25 05/07/18 22:20 05/08/18 07:41 White Blood Count 6.0 x10^3/uL (4.0-11.0) Red Blood Count 3.68 x10^6/uL (4.30-5.70) Hemoglobin 10.7 g/dL (13.0-17.5) Hematocrit 31.9 % (39.0-53.0) Mean Corpuscular Volume 87 fL (79-100) Mean Corpuscular Hemoglobin 29 pg (25-35) Mean Corpuscular Hemoglobin Concent 34 g/dL (31-37) Red Cell Distribution Width 14.0 % (11.5-14.5) Platelet Count 198 x10^3/uL (140-400) Neutrophils (%) (Auto) 77 % (31-73) Lymphocytes (%) (Auto) 11 % (24-48) Monocytes (%) (Auto) 8 % (0-9) Eosinophils (%) (Auto) 4 % (0-3) Basophils (%) (Auto) 1 % (0-3) Neutrophils # (Auto) 4.6 x10^3uL (1.8-7.7) Lymphocytes # (Auto) 0.7 x10^3/uL (1.0-4.8) Monocytes # (Auto) 0.5 x10^3/uL (0.0-1.1) Eosinophils # (Auto) 0.2 x10^3/uL (0.0-0.7) Basophils # (Auto) 0.0 x10^3/uL (0.0-0.2) Sodium Level 140 mmol/L (136-145) Potassium Level 4.4 mmol/L (3.5-5.1) Chloride Level 104 mmol/L (98-107) Carbon Dioxide Level 25 mmol/L (21-32) Anion Gap 11 (6-14) Blood Urea Nitrogen 24 mg/dL (8-26) Creatinine 1.3 mg/dL (0.7-1.3) Estimated GFR (Cockcroft-Gault) 53.0 BUN/Creatinine Ratio 18 (6-20) Glucose Level 114 mg/dL (70-99) Calcium Level 9.2 mg/dL (8.5-10.1) Magnesium Level 1.6 mg/dL (1.8-2.4) Total Bilirubin 0.3 mg/dL (0.2-1.0) Aspartate Amino Transf (AST/SGOT) 19 U/L (15-37) Alanine Aminotransferase (ALT/SGPT) 21 U/L (16-63) Alkaline Phosphatase 39 U/L (46-116) Creatine Kinase 28 U/L (39-308) Creatine Kinase MB (Mass) 0.7 ng/mL (0.0-3.6) Creatine Kinase MB Relative Index % (0-4) Troponin I Quantitative 0.052 ng/mL (0.000-0.055) 0.148 ng/mL (0.000-0.055) 0.144 ng/mL (0.000-0.055) LJ-Ghd-C-Type Natriuretic Peptide 974 pg/mL (0-449) Total Protein 6.5 g/dL (6.4-8.2) Albumin 3.1 g/dL (3.4-5.0) Albumin/Globulin Ratio 0.9 (1.0-1.7) Glucose (Fingerstick) 74 mg/dL (70-99) Assessment/Plan Assessment/Plan Patient with an episode of tachycardia and successful shocking from the AICD. We have been having difficulties in controlling his rhythm and tried different medications but when we tried the flecainide he did not tolerate a significant dose. In view of this I would like to start the patient on Rythmol and see how she does. Elevated troponins possibly due to AICD firing Thank you very much for asking me to participate in the care of this patient JESSE RAND MD May 08, 2018 13:45
[2018-05-08 15:42] VITALS: BP 123/47
[2018-05-08] MEDS: ATORVASTATIN CALCIUM 20 MG TABLET PO SCH (16:58)
[2018-05-08] MEDS: ASPIRIN ENTERIC COATED 325 MG TABLET.DR. PO SCH (16:58)
[2018-05-08] MEDS: ENOXAPARIN 30 MG/0.3 ML SYRINGE. SQ SCH (16:59)
[2018-05-08 19:05] VITALS: BP 130/55
[2018-05-08] MEDS: diphenhydrAMINE HCL 25 MG CAPSULE PO SCH (20:46)
[2018-05-08] MEDS: ACETAMINOPHEN 500 MG TABLET PO SCH (20:46)
[2018-05-08 23:05] VITALS: BP 119/51
[2018-05-09 03:05] VITALS: BP 115/53
[2018-05-09 07:30] VITALS: BP 109/55
[2018-05-09] MEDS: PROPAFENONE 150 MG TABLET. PO SCH ×2 (09:18→21:42)
[2018-05-09] MEDS: FENOFIBRATE,MICRONIZED 134 MG CAPSULE PO SCH (09:18)
[2018-05-09] MEDS: metFORMIN 500 MG TABLET PO SCH ×2 (09:19→17:15)
[2018-05-09] MEDS: MULTIVITAMIN with MINERAL TABLET. PO SCH (09:19)
[2018-05-09] MEDS: MAGNESIUM OXIDE 400 MG TABLET PO SCH (09:19)
[2018-05-09 10:46] VITALS: BP 92/44
--- NOTE | 2018-05-09 11:54 | PDOC ---
PROGRESS NOTES Subjective Subjective Patient doing well with no complaints at this time Objective Objective Vital Signs Date Time Temp Pulse Resp B/P (MAP) Pulse Ox O2 Delivery O2 Flow Rate FiO2 05/09/18 10:46 97.4 47 18 92/44 (60) 99 Room Air 97.4 Intake and Output 05/09/18 07:00 Intake Total 1200 ml Output Total 1550 ml Balance -350 ml Intake Oral 1200 ml Output Urine Total 1550 ml # Voids 2 Physical Exam Physical Exam No significant change in cardiac exam Assessment Assessment Problems Medical Problems: (1) Defibrillator discharge Status: Acute Plan Plan of Care Patient has been having tachycardic/bradycardic events Currently bradycardic with pulse in mid 40's Check and reprogram PPM settings to prevent further bradycardic events Continue Rhythmol and monitor overnight Thank you very much for asking me to participate in the care of this patient Comment Review of Relevant I have reviewed the following items ron (where applicable) has been applied. Labs Laboratory Tests Test 05/07/18 15:37 05/07/18 19:25 05/07/18 22:20 05/08/18 07:41 White Blood Count 6.0 x10^3/uL (4.0-11.0) Red Blood Count 3.68 x10^6/uL (4.30-5.70) Hemoglobin 10.7 g/dL (13.0-17.5) Hematocrit 31.9 % (39.0-53.0) Mean Corpuscular Volume 87 fL (79-100) Mean Corpuscular Hemoglobin 29 pg (25-35) Mean Corpuscular Hemoglobin Concent 34 g/dL (31-37) Red Cell Distribution Width 14.0 % (11.5-14.5) Platelet Count 198 x10^3/uL (140-400) Neutrophils (%) (Auto) 77 % (31-73) Lymphocytes (%) (Auto) 11 % (24-48) Monocytes (%) (Auto) 8 % (0-9) Eosinophils (%) (Auto) 4 % (0-3) Basophils (%) (Auto) 1 % (0-3) Neutrophils # (Auto) 4.6 x10^3uL (1.8-7.7) Lymphocytes # (Auto) 0.7 x10^3/uL (1.0-4.8) Monocytes # (Auto) 0.5 x10^3/uL (0.0-1.1) Eosinophils # (Auto) 0.2 x10^3/uL (0.0-0.7) Basophils # (Auto) 0.0 x10^3/uL (0.0-0.2) Sodium Level 140 mmol/L (136-145) Potassium Level 4.4 mmol/L (3.5-5.1) Chloride Level 104 mmol/L (98-107) Carbon Dioxide Level 25 mmol/L (21-32) Anion Gap 11 (6-14) Blood Urea Nitrogen 24 mg/dL (8-26) Creatinine 1.3 mg/dL (0.7-1.3) Estimated GFR (Cockcroft-Gault) 53.0 BUN/Creatinine Ratio 18 (6-20) Glucose Level 114 mg/dL (70-99) Calcium Level 9.2 mg/dL (8.5-10.1) Magnesium Level 1.6 mg/dL (1.8-2.4) Total Bilirubin 0.3 mg/dL (0.2-1.0) Aspartate Amino Transf (AST/SGOT) 19 U/L (15-37) Alanine Aminotransferase (ALT/SGPT) 21 U/L (16-63) Alkaline Phosphatase 39 U/L (46-116) Creatine Kinase 28 U/L (39-308) Creatine Kinase MB (Mass) 0.7 ng/mL (0.0-3.6) Creatine Kinase MB Relative Index % (0-4) Troponin I Quantitative 0.052 ng/mL (0.000-0.055) 0.148 ng/mL (0.000-0.055) 0.144 ng/mL (0.000-0.055) DH-Eff-Q-Type Natriuretic Peptide 974 pg/mL (0-449) Total Protein 6.5 g/dL (6.4-8.2) Albumin 3.1 g/dL (3.4-5.0) Albumin/Globulin Ratio 0.9 (1.0-1.7) Glucose (Fingerstick) 74 mg/dL (70-99) Test 05/09/18 08:05 Glucose (Fingerstick) 73 mg/dL (70-99) Laboratory Tests Test 05/09/18 08:05 Glucose (Fingerstick) 73 mg/dL (70-99) Medications Current Medications Aspirin (Children'S Aspirin) 324 mg 1X ONCE PO Last administered on 15:14; Start 05/07/18 at 15:15; Stop 05/07/18 at 15:16; Status DC Magnesium Sulfate/ Dextrose 100 ml @ 100 mls/hr 1X ONCE IV Last administered on 05/07/18at 16:47; Start 05/07/18 at 16:45; Stop 05/07/18 at 17:44; Status DC Propafenone HCl (Rythmol) 150 mg BID PO Last administered on 05/09/18 09:18; Start 05/07/18 at 21:00 Aspirin (Ecotrin) 325 mg DAILY16 PO Last administered on 05/08/18 16:58; Start 05/08/18 at 16:00 Atorvastatin Calcium (Lipitor) 20 mg DAILY16 PO Last administered on 16:58; Start 05/07/18 at 19:30 Acetaminophen (Tylenol) 500 mg QHS PO Last administered on 05/08/18 20:46; Start 05/07/18 at 21:00 Fenofibrate (Lofibra) 134 mg DAILY PO Last administered on 05/09/18 09:18; Start 05/08/18 at 09:00 Magnesium Oxide (Magnesium Oxide) 400 mg DAILY PO Last administered on 09:19; Start 05/08/18 at 09:00 Metformin HCl (Glucophage) 500 mg BIDWMEALS PO Last administered on 05/09/18 09:19; Start 05/07/18 at 19:30 Multivitamins (Thera M Plus) 1 tab DAILY PO Last administered on 05/09/18 09: 19; Start 05/08/18 at 09:00 Non-Formulary Medication ([melatonin] ) 10 mg QHS PO ; Start 05/07/18 at 21:00 ; Status UNV Diphenhydramine HCl (Benadryl) 25 mg QHS PO Last administered on 05/08/18at 20: 46; Start 05/07/18 at 21:00 Enoxaparin Sodium (Lovenox 30mg Syringe) 30 mg Q24H SQ Last administered on at 16:59; Start 05/08/18 at 17:00 Active Scripts Active Reported Magnesium (Magnesium Oxide) 400 Mg Capsule 250 Mg PO DAILY [melatonin] 10 Mg PO QHS Centrum Silver Tablet (Multivits-Min/Fa/Lycopene/Lut) 1 Each Tablet 1 Tab DAILY Acetadryl 500-25 Mg Caplet (Acetaminophen/Diphenhydramine) 1 Each Tablet 1 Tab HS Aspir-Marybeth (Aspirin) 325 Mg Tablet.dr 1 Tab PO DAILY16 Metformin Hcl 500 Mg Tablet 1 Tab BIDBFRMEAL Atorvastatin Calcium 20 Mg Tablet 1 Tab DAILY16 Fenofibrate 160 Mg Tablet 1 Tab DAILY Vitals/I & O Vital Sign - Last 24 Hours 05/08/18 05/08/18 05/08/18 05/08/18 15:42 19:05 20:15 20:47 Temp 97.4 97.6 97.4 97.6 Pulse 47 50 55 Resp 16 18 B/P (MAP) 123/47 (72) 130/55 (80) 130/55 Pulse Ox 96 95 O2 Delivery Room Air Room Air Room Air 05/08/18 05/09/18 05/09/18 05/09/18 23:05 03:05 07:30 09:18 Temp 97.8 98.1 97.5 97.8 98.1 97.5 Pulse 55 45 62 62 Resp 16 18 18 B/P (MAP) 119/51 (73) 115/53 (73) 109/55 (73) 109/55 Pulse Ox 98 98 97 O2 Delivery Room Air Room Air Room Air 05/09/18 10:46 Temp 97.4 97.4 Pulse 47 Resp 18 B/P (MAP) 92/44 (60) Pulse Ox 99 O2 Delivery Room Air Intake and Output 05/08/18 05/08/18 05/09/18 15:00 23:00 07:00 Intake Total 500 ml 700 ml Output Total 300 ml 600 ml 650 ml Balance -300 ml -100 ml 50 ml JESSE RAND MD May 09, 2018 11:54
--- NOTE | 2018-05-09 13:13 | PDOC ---
PROGRESS NOTES Subjective He has had some lightheadedness and HR has been from low 40s to 140. Pacemaker set at HR of 40. No Vtach Objective Afebrile General: NAD Heart: bradycardic 40-50s Lungs: CTAB Abd: soft and non tender Ext: no C/C/E Vital Signs Vital Signs Date Time Temp Pulse Resp B/P (MAP) Pulse Ox O2 Delivery O2 Flow Rate FiO2 05/09/18 10:46 97.4 47 18 92/44 (60) 99 Room Air 97.4 I & O Intake and Output 05/09/18 07:00 Intake Total 1200 ml Output Total 1550 ml Balance -350 ml Intake Oral 1200 ml Output Urine Total 1550 ml # Voids 2 Assessment and Plan (1) Defibrillator discharge (2) SSS - continue to monitor and adjust meds, cardiology followng (3) weakness - PT/OT (4) hypomagnesemia - replace Robert AZUL MD May 09, 2018 13:13
[2018-05-09 15:11] VITALS: BP 111/57
[2018-05-09] MEDS: ASPIRIN ENTERIC COATED 325 MG TABLET.DR. PO SCH (17:15)
[2018-05-09] MEDS: ENOXAPARIN 30 MG/0.3 ML SYRINGE. SQ SCH (17:16)
[2018-05-09 19:23] VITALS: BP 112/45
[2018-05-09] MEDS: ATORVASTATIN CALCIUM 20 MG TABLET PO SCH (21:41)
[2018-05-09] MEDS: ACETAMINOPHEN 500 MG TABLET PO SCH (21:42)
[2018-05-09] MEDS: diphenhydrAMINE HCL 25 MG CAPSULE PO SCH (21:42)
[2018-05-09 23:05] VITALS: BP 121/56
[2018-05-10 03:24] VITALS: BP 93/49
[2018-05-10 07:00] VITALS: BP 97/51
[2018-05-10] MEDS: metFORMIN 500 MG TABLET PO SCH ×2 (08:53→18:08)
[2018-05-10] MEDS: MULTIVITAMIN with MINERAL TABLET. PO SCH (08:53)
[2018-05-10] MEDS: MAGNESIUM OXIDE 400 MG TABLET PO SCH ×2 (08:53→20:54)
[2018-05-10] MEDS: FENOFIBRATE,MICRONIZED 134 MG CAPSULE PO SCH (08:53)
[2018-05-10] MEDS: PROPAFENONE 150 MG TABLET. PO SCH ×2 (08:53→20:54)
[2018-05-10] MEDS ORDERED: MAGNESIUM SULFATE 2GM 50 ML IV ONE (10:00)
[2018-05-10 10:29] VITALS: BP 85/48
--- NOTE | 2018-05-10 12:13 | PDOC ---
PROGRESS NOTES Subjective MG was still low so replacing IV and increasing po dose. His is worried about his BP being low (SBP 85). He denies being lightheaded. Monitor not showing significant arrhythmia Objective Afebrile General: NAD, A&O Heart: RRR Lungs: CTAB Abd: soft and non distended Ext: no C/C/E Vital Signs Vital Signs Date Time Temp Pulse Resp B/P (MAP) Pulse Ox O2 Delivery O2 Flow Rate FiO2 05/10/18 10:29 99.2 63 20 85/48 (60) 97 Room Air 99.2 I & O Intake and Output 05/10/18 07:00 Intake Total 840 ml Output Total 1250 ml Balance -410 ml Intake Oral 840 ml Output Urine Total 1250 ml # Voids 2 Assessment and Plan (1) Defibrillator discharge (2) SSS - continue to monitor and adjust meds, cardiology followng (3) weakness - PT/OT (4) hypomagnesemia - replace Robert AZUL MD May 10, 2018 12:13
--- NOTE | 2018-05-10 12:31 | PDOC ---
PROGRESS NOTES Subjective Subjective pt is feeling well this morning after his pacemaker was paced at a rate of 60 he denies any other chest pain, shortness of breath or light headedness patient is going to try walking around the unit as he feels able to perform activity today Objective Objective Vital Signs Date Time Temp Pulse Resp B/P (MAP) Pulse Ox O2 Delivery O2 Flow Rate FiO2 05/10/18 10:29 99.2 63 20 85/48 (60) 97 Room Air 99.2 Intake and Output 05/10/18 07:00 Intake Total 840 ml Output Total 1250 ml Balance -410 ml Intake Oral 840 ml Output Urine Total 1250 ml # Voids 2 Physical Exam Heart: Regular rate, Normal S1, Normal S2, No murmurs Extremities: No clubbing, No cyanosis, No edema, Normal pulses General: Alert, Oriented X3, Cooperative, No acute distress Lungs: Clear to auscultation, Normal air movement Assessment Assessment Problems Medical Problems: (1) Defibrillator discharge Status: Acute Plan Plan of Care continue to monitor patient at new pacemaker rate encouraged patient to walk around the unit and monitor heart rhythm if patient can tolerate activity, would recommend discharge in AM if okay from primary physician Comment Review of Relevant I have reviewed the following items ron (where applicable) has been applied. Labs Laboratory Tests Test 05/09/18 08:05 05/09/18 14:35 05/10/18 08:13 Glucose (Fingerstick) 73 mg/dL (70-99) 81 mg/dL (70-99) Magnesium Level 1.6 mg/dL (1.8-2.4) Laboratory Tests Test 05/09/18 14:35 05/10/18 08:13 Magnesium Level 1.6 mg/dL (1.8-2.4) Glucose (Fingerstick) 81 mg/dL (70-99) Medications Current Medications Aspirin (Children'S Aspirin) 324 mg 1X ONCE PO Last administered on at 15:14; Start 05/07/18 at 15:15; Stop 05/07/18 at 15:16; Status DC Magnesium Sulfate/ Dextrose 100 ml @ 100 mls/hr 1X ONCE IV Last administered on 05/07/18at 16:47; Start 05/07/18 at 16:45; Stop 05/07/18 at 17:44; Status DC Propafenone HCl (Rythmol) 150 mg BID PO Last administered on 05/10/18 08:53; Start 05/07/18 at 21:00 Aspirin (Ecotrin) 325 mg DAILY16 PO Last administered on 05/09/18 17:15; Start 05/08/18 at 16:00 Atorvastatin Calcium (Lipitor) 20 mg DAILY16 PO Last administered on at 16:58; Start 05/07/18 at 19:30; Stop 05/09/18 at 16:02; Status DC Acetaminophen (Tylenol) 500 mg QHS PO Last administered on 05/09/18 21:42; Start 05/07/18 at 21:00 Fenofibrate (Lofibra) 134 mg DAILY PO Last administered on 05/10/18 08:53; Start 05/08/18 at 09:00 Magnesium Oxide (Magnesium Oxide) 400 mg DAILY PO Last administered on 08:53; Start 05/08/18 at 09:00; Stop 05/10/18 at 09:40; Status DC Metformin HCl (Glucophage) 500 mg BIDWMEALS PO Last administered on 05/10/18 08:53; Start 05/07/18 at 19:30 Multivitamins (Thera M Plus) 1 tab DAILY PO Last administered on 05/10/18 08: 53; Start 05/08/18 at 09:00 Non-Formulary Medication ([melatonin] ) 10 mg QHS PO ; Start 05/07/18 at 21:00 ; Status UNV Diphenhydramine HCl (Benadryl) 25 mg QHS PO Last administered on 05/09/18at 21: 42; Start 05/07/18 at 21:00 Enoxaparin Sodium (Lovenox 30mg Syringe) 30 mg Q24H SQ Last administered on 17:16; Start 05/08/18 at 17:00 Atorvastatin Calcium (Lipitor) 20 mg HS PO Last administered on 05/09/18 21: 41; Start 05/09/18 at 21:00 Magnesium Oxide (Magnesium Oxide) 400 mg BID PO ; Start 05/10/18 at 21:00 Magnesium Sulfate 50 ml @ 25 mls/hr 1X ONCE IV Last administered on at 10:54; Start 05/10/18 at 10:00; Stop 05/10/18 at 11:59; Status DC Active Scripts Active Reported Magnesium (Magnesium Oxide) 400 Mg Capsule 250 Mg PO DAILY [melatonin] 10 Mg PO QHS Centrum Silver Tablet (Multivits-Min/Fa/Lycopene/Lut) 1 Each Tablet 1 Tab DAILY Acetadryl 500-25 Mg Caplet (Acetaminophen/Diphenhydramine) 1 Each Tablet 1 Tab HS Aspir-Marybeth (Aspirin) 325 Mg Tablet.dr 1 Tab PO DAILY16 Metformin Hcl 500 Mg Tablet 1 Tab BIDBFRMEAL Atorvastatin Calcium 20 Mg Tablet 1 Tab DAILY16 Fenofibrate 160 Mg Tablet 1 Tab DAILY Vitals/I & O Vital Sign - Last 24 Hours 05/09/18 05/09/18 05/09/18 05/09/18 15:11 19:23 20:00 21:42 Temp 97.4 98.4 97.4 98.4 Pulse 44 53 73 Resp 18 18 B/P (MAP) 111/57 (75) 112/45 (67) 112/45 Pulse Ox 98 97 O2 Delivery Room Air Room Air Room Air 05/09/18 05/10/18 05/10/18 05/10/18 23:05 03:24 07:00 08:53 Temp 98.4 98.3 98.6 98.4 98.3 98.6 Pulse 76 70 74 89 Resp 16 18 20 B/P (MAP) 121/56 (77) 93/49 (64) 97/51 (66) 97/51 Pulse Ox 96 97 97 O2 Delivery Room Air Room Air Room Air 05/10/18 10:29 Temp 99.2 99.2 Pulse 63 Resp 20 B/P (MAP) 85/48 (60) Pulse Ox 97 O2 Delivery Room Air Intake and Output 05/09/18 05/09/18 05/10/18 15:00 23:00 07:00 Intake Total 540 ml 300 ml Output Total 650 ml 600 ml Balance -110 ml -300 ml JESSE RNAD MD May 10, 2018 12:31
[2018-05-10 13:05] LABS: BASO % 0 % (0-3); EOS # 0.2 x10^3/uL (0.0-0.7); EOS % 2 % (0-3); HEMOGLOBIN 12.2 g/dL (13.0-17.5); LYMPH % 10 % (24-48); MEAN CORPUSCULAR HEMOGLOBIN 29 pg (25-35); MEAN CORPUSCULAR HGB CONC 34 g/dL (31-37); MEAN CORPUSCULAR VOLUME 87 fL (79-100); MONO # 0.8 x10^3/uL (0.0-1.1); MONO % 8 % (0-9); NEUT # 7.8 x10^3uL (1.8-7.7); NEUT % 80 % (31-73); PLATELET COUNT 251 x10^3/uL (140-400); RED BLOOD COUNT 4.15 x10^6/uL (4.30-5.70); RED CELL DISTRIBUTION WIDTH 13.7 % (11.5-14.5); WHITE BLOOD COUNT 9.8 x10^3/uL (4.0-11.0)
[2018-05-10 15:49] VITALS: BP 116/56
[2018-05-10] MEDS: ASPIRIN ENTERIC COATED 325 MG TABLET.DR. PO SCH (18:06)
[2018-05-10] MEDS: ENOXAPARIN 30 MG/0.3 ML SYRINGE. SQ SCH (18:09)
[2018-05-10 19:36] VITALS: BP 102/48
[2018-05-10] MEDS: ACETAMINOPHEN 500 MG TABLET PO SCH (20:54)
[2018-05-10] MEDS: ATORVASTATIN CALCIUM 20 MG TABLET PO SCH (20:54)
[2018-05-10] MEDS: diphenhydrAMINE HCL 25 MG CAPSULE PO SCH (20:54)
[2018-05-10 23:02] VITALS: BP 94/51
[2018-05-11 03:43] VITALS: BP 103/59
[2018-05-11 07:20] LABS: CALCIUM 9.5 mg/dL (8.5-10.1); CREATININE 1.4 mg/dL (0.7-1.3); GFR 48.6; MAGNESIUM 2.1 mg/dL (1.8-2.4); POTASSIUM 4.5 mmol/L (3.5-5.1)
[2018-05-11 07:25] VITALS: BP 100/57
[2018-05-11] MEDS: PROPAFENONE 150 MG TABLET. PO SCH (10:08)
[2018-05-11] MEDS: MAGNESIUM OXIDE 400 MG TABLET PO SCH (10:08)
[2018-05-11] MEDS: MULTIVITAMIN with MINERAL TABLET. PO SCH (10:08)
[2018-05-11] MEDS: metFORMIN 500 MG TABLET PO SCH (10:08)
[2018-05-11] MEDS: FENOFIBRATE,MICRONIZED 134 MG CAPSULE PO SCH (10:08)
[2018-05-11 11:17] VITALS: BP 118/57
[2018-05-11] MEDS ORDERED: MAGN400T22 PO (12:50)
[2018-05-11] MEDS ORDERED: PROP150T2 PO (12:50)
--- NOTE | 2018-05-11 12:52 | DISCH ---
DISCHARGE DISCHARGE INFORMATION: DISCHARGE DATE: May 11, 2018 FINAL DIAGNOSIS Problems Medical Problems: (1) Defibrillator discharge Status: Acute CONDITION ON DISCHARGE: Stable CODE STATUS: Code Status: Full POST DISCHARGE ORDERS: ACTIVITY ORDERS: Activity as tolerated WEIGHT BEARING STATUS: As tolerated DIET AFTER DISCHARGE: Cardiac FOLLOW-UP: PHYSICIAN FOLLOW-UP: Drs. Josue and Vern within 2 weeks TREATMENT/EQUIPMENT ORDERS: ADAPTIVE EQUIPMENT NEEDED: None Physical Therapy For: Evalulation/Treatment Occupational Therapy For: Evaluation/Treatment DISCHARGE MEDICATIONS: Home Meds Reported Medications Magnesium Oxide (MAGNESIUM) 400 Mg Capsule, 250 MG PO DAILY, CAP 05/07/18 [melatonin] No Conflict Check, 10 MG PO QHS 12/07/17 Multivits-Min/Fa/Lycopene/Lut (CENTRUM SILVER TABLET) 1 Each Tablet, 1 TAB DAILY 08/24/13 Acetaminophen/Diphenhydramine (ACETADRYL 500-25 MG CAPLET) 1 Each Tablet, 1 TAB HS 08/24/13 Aspirin (ASPIR-AARON) 325 Mg Tablet., 1 TAB PO DAILY16 08/24/13 Metformin Hcl (METFORMIN HCL) 500 Mg Tablet, 1 TAB BIDBFRMEAL 08/24/13 Atorvastatin Calcium (ATORVASTATIN CALCIUM) 20 Mg Tablet, 1 TAB DAILY16 08/24/13 Fenofibrate (FENOFIBRATE) 160 Mg Tablet, 1 TAB DAILY 08/24/13 Robert AZUL MD May 11, 2018 12:52
[2018-05-11 15:14] VITALS: BP 103/57
--- NOTE | 2018-05-11 15:34 | PDOC ---
PROGRESS NOTES Subjective Subjective Pt feeling much better today. Objective Objective Vital Signs Date Time Temp Pulse Resp B/P (MAP) Pulse Ox O2 Delivery O2 Flow Rate FiO2 05/11/18 15:14 97.5 83 16 103/57 (72) 98 Room Air 97.5 05/10/18 15:49 97.0 Intake and Output 05/11/18 07:00 Intake Total 400 ml Output Total 1100 ml Balance -700 ml Intake Oral 400 ml Output Urine Total 1100 ml # Voids 1 Physical Exam Physical Exam No significant cardiac changes. Assessment Assessment Problems Medical Problems: (1) Defibrillator discharge Status: Acute Plan Plan of Care Pt is okay to discharge from my perspective. Follow up at clinic in 2 weeks. Comment Review of Relevant I have reviewed the following items ron (where applicable) has been applied. Labs Laboratory Tests Test 05/10/18 08:13 05/10/18 12:50 05/11/18 05:05 05/11/18 07:45 Glucose (Fingerstick) 81 mg/dL (70-99) 77 mg/dL (70-99) White Blood Count 9.8 x10^3/uL (4.0-11.0) Red Blood Count 4.15 x10^6/uL (4.30-5.70) Hemoglobin 12.2 g/dL (13.0-17.5) Hematocrit 36.0 % (39.0-53.0) Mean Corpuscular Volume 87 fL (79-100) Mean Corpuscular Hemoglobin 29 pg (25-35) Mean Corpuscular Hemoglobin Concent 34 g/dL (31-37) Red Cell Distribution Width 13.7 % (11.5-14.5) Platelet Count 251 x10^3/uL (140-400) Neutrophils (%) (Auto) 80 % (31-73) Lymphocytes (%) (Auto) 10 % (24-48) Monocytes (%) (Auto) 8 % (0-9) Eosinophils (%) (Auto) 2 % (0-3) Basophils (%) (Auto) 0 % (0-3) Neutrophils # (Auto) 7.8 x10^3uL (1.8-7.7) Lymphocytes # (Auto) 1.0 x10^3/uL (1.0-4.8) Monocytes # (Auto) 0.8 x10^3/uL (0.0-1.1) Eosinophils # (Auto) 0.2 x10^3/uL (0.0-0.7) Basophils # (Auto) 0.0 x10^3/uL (0.0-0.2) Sodium Level 143 mmol/L (136-145) Potassium Level 4.5 mmol/L (3.5-5.1) Chloride Level 106 mmol/L (98-107) Carbon Dioxide Level 30 mmol/L (21-32) Anion Gap 7 (6-14) Blood Urea Nitrogen 25 mg/dL (8-26) Creatinine 1.4 mg/dL (0.7-1.3) Estimated GFR (Cockcroft-Gault) 48.6 Glucose Level 68 mg/dL (70-99) Calcium Level 9.5 mg/dL (8.5-10.1) Magnesium Level 2.1 mg/dL (1.8-2.4) Laboratory Tests Test 05/11/18 05:05 05/11/18 07:45 Sodium Level 143 mmol/L (136-145) Potassium Level 4.5 mmol/L (3.5-5.1) Chloride Level 106 mmol/L (98-107) Carbon Dioxide Level 30 mmol/L (21-32) Anion Gap 7 (6-14) Blood Urea Nitrogen 25 mg/dL (8-26) Creatinine 1.4 mg/dL (0.7-1.3) Estimated GFR (Cockcroft-Gault) 48.6 Glucose Level 68 mg/dL (70-99) Calcium Level 9.5 mg/dL (8.5-10.1) Magnesium Level 2.1 mg/dL (1.8-2.4) Glucose (Fingerstick) 77 mg/dL (70-99) Medications Current Medications Aspirin (Children'S Aspirin) 324 mg 1X ONCE PO Last administered on at 15:14; Start 05/07/18 at 15:15; Stop 05/07/18 at 15:16; Status DC Magnesium Sulfate/ Dextrose 100 ml @ 100 mls/hr 1X ONCE IV Last administered on 05/07/18at 16:47; Start 05/07/18 at 16:45; Stop 05/07/18 at 17:44; Status DC Propafenone HCl (Rythmol) 150 mg BID PO Last administered on 05/11/18 10:08; Start 05/07/18 at 21:00 Aspirin (Ecotrin) 325 mg DAILY16 PO Last administered on 05/10/18at 18:06; Start 05/08/18 at 16:00 Atorvastatin Calcium (Lipitor) 20 mg DAILY16 PO Last administered on at 16:58; Start 05/07/18 at 19:30; Stop 05/09/18 at 16:02; Status DC Acetaminophen (Tylenol) 500 mg QHS PO Last administered on 05/10/18at 20:54; Start 05/07/18 at 21:00 Fenofibrate (Lofibra) 134 mg DAILY PO Last administered on 05/11/18 10:08; Start 05/08/18 at 09:00 Magnesium Oxide (Magnesium Oxide) 400 mg DAILY PO Last administered on 08:53; Start 05/08/18 at 09:00; Stop 05/10/18 at 09:40; Status DC Metformin HCl (Glucophage) 500 mg BIDWMEALS PO Last administered on 05/11/18at 10:08; Start 05/07/18 at 19:30 Multivitamins (Thera M Plus) 1 tab DAILY PO Last administered on 05/11/18 10: 08; Start 05/08/18 at 09:00 Non-Formulary Medication ([melatonin] ) 10 mg QHS PO ; Start 05/07/18 at 21:00 ; Status UNV Diphenhydramine HCl (Benadryl) 25 mg QHS PO Last administered on 05/10/18at 20: 54; Start 05/07/18 at 21:00 Enoxaparin Sodium (Lovenox 30mg Syringe) 30 mg Q24H SQ Last administered on at 18:09; Start 05/08/18 at 17:00 Atorvastatin Calcium (Lipitor) 20 mg HS PO Last administered on 05/10/18at 20: 54; Start 05/09/18 at 21:00 Magnesium Oxide (Magnesium Oxide) 400 mg BID PO Last administered on at 10:08; Start 05/10/18 at 21:00 Magnesium Sulfate 50 ml @ 25 mls/hr 1X ONCE IV Last administered on at 10:54; Start 05/10/18 at 10:00; Stop 05/10/18 at 11:59; Status DC Active Scripts Active Reported Magnesium (Magnesium Oxide) 400 Mg Capsule 250 Mg PO DAILY [melatonin] 10 Mg PO QHS Centrum Silver Tablet (Multivits-Min/Fa/Lycopene/Lut) 1 Each Tablet 1 Tab DAILY Acetadryl 500-25 Mg Caplet (Acetaminophen/Diphenhydramine) 1 Each Tablet 1 Tab HS Aspir-Marybeth (Aspirin) 325 Mg Tablet.dr 1 Tab PO DAILY16 Metformin Hcl 500 Mg Tablet 1 Tab BIDBFRMEAL Atorvastatin Calcium 20 Mg Tablet 1 Tab DAILY16 Fenofibrate 160 Mg Tablet 1 Tab DAILY Vitals/I & O Vital Sign - Last 24 Hours 05/10/18 05/10/18 05/10/18 05/10/18 15:49 19:36 20:00 20:54 Temp 97.0 97.5 97.0 97.5 Pulse 74 61 61 Resp 20 18 B/P (MAP) 116/56 (76) 102/48 (66) 102/48 Pulse Ox 98 O2 Delivery Room Air Room Air Room Air O2 Flow Rate 97.0 05/10/18 05/11/18 05/11/18 05/11/18 23:02 03:43 07:25 07:40 Temp 98.5 97.9 97.5 98.5 97.9 97.5 Pulse 66 77 83 Resp 16 16 16 B/P (MAP) 94/51 (65) 103/59 (74) 100/57 (71) Pulse Ox 96 97 98 O2 Delivery Room Air Room Air Room Air Room Air 05/11/18 05/11/18 05/11/18 10:08 11:17 15:14 Temp 97.7 97.5 97.7 97.5 Pulse 85 83 83 Resp 16 16 B/P (MAP) 118/57 (77) 103/57 (72) Pulse Ox 98 98 O2 Delivery Room Air Room Air Intake and Output 05/10/18 05/10/18 05/11/18 15:00 23:00 07:00 Intake Total 400 ml Output Total 600 ml 500 ml Balance -600 ml -100 ml JESSE RAND MD May 11, 2018 15:34
--- NOTE | 2018-05-11 17:24 | PDOC3 ---
Discharge Summary [facility] Date of Admission: May 07, 2018 Discharge Date: May 11, 2018 Admitting Diagnosis defibrillator discharged Final Diagnosis Problems Medical Problems: (1) Defibrillator discharge Status: Acute CONSULTS [facility] Hospital Course Mr. Torres is a 83 old who presented with (1) Defibrillator discharge and noted to have arrhythmia in ER, mildly elevated troponin and pro BNP, he was started on Rythmol 150 mg bid and symptoms have resolved, he has previously been on Mexiletine, Flecainide and Dig for ischemic cardiomyopathy (2) SSS - continue to monitor and adjust meds, cardiology followed, pace baseline reset from 40 bpm to 60 (3) weakness - PT/OT- evaluated and he is requesting HH services as he feels his legs are still deconditioned (4) hypomagnesemia - replaced IV and po and does doubled for discharge from admission Patient History: FH: cardiovascular disease G8 BROTHER G8 BROTHER G8 BROTHER 33 FATHER 32 MOTHER G8 SISTER FH: diabetes mellitus G8 BROTHER G8 BROTHER G8 BROTHER 33 FATHER 32 MOTHER G8 SISTER FH: sudden cardiac (SCD) G8 BROTHER G8 BROTHER G8 BROTHER 33 FATHER G8 SISTER Disposition home with , HH eval and tx PT/OT CONDITION AT DISCHARGE: Improved, Stable Diet cardiac Scheduled Acetaminophen/Diphenhydramine (Acetadryl 500-25 Mg Caplet), 1 TAB HS, (Reported) Aspirin (Aspir-Marybeth), 1 TAB PO DAILY16, (Reported) Atorvastatin Calcium (Atorvastatin Calcium), 1 TAB DAILY16, (Reported) Fenofibrate (Fenofibrate), 1 TAB DAILY, (Reported) Magnesium Oxide (Magnesium), 250 MG PO DAILY, (Reported) Magnesium Oxide (Mag-Oxide), 400 MG PO BID Metformin Hcl (Metformin Hcl), 1 TAB BIDBFRMEAL, (Reported) Multivits-Min/Fa/Lycopene/Lut (Centrum Silver Tablet), 1 TAB DAILY, (Reported) Propafenone Hcl (Propafenone Hcl), 150 MG PO BID [melatonin], 10 MG PO QHS, (Reported) Follow Up 1-[address] Josue and Robert Albert MD May 11, 2018 17:24
== END 2018-05-11 15:50 | disposition home health service (06) | DRG 309 ==
LOC: ER 14:16 → 2 NORTH 16:20
PROVIDERS: ADMIT Family Medicine; ATTEND Family Medicine
PROC: 4B02XTZ Measurement of Cardiac Defibrillator, External Approach (ICD-10-PCS; principal; 2018-05-07)
DX: I47.2 Ventricular tachycardia (principal); E44.1 Mild protein-calorie malnutrition; I49.5 Sick sinus syndrome; E83.42 Hypomagnesemia; E11.22 Type 2 diabetes mellitus with diabetic chronic kidney disease; I25.5 Ischemic cardiomyopathy; I12.9 Hypertensive chronic kidney disease with stage 1 through stage 4 chronic kidney disease, or unspecified chronic kidney disease; I25.10 Atherosclerotic heart disease of native coronary artery without angina pectoris; I48.91 Unspecified atrial fibrillation; K21.9 Gastro-esophageal reflux disease without esophagitis; M19.90 Unspecified osteoarthritis, unspecified site; N18.9 Chronic kidney disease, unspecified; Z83.3 Family history of diabetes mellitus; Z85.46 Personal history of malignant neoplasm of prostate; Z85.840 Personal history of malignant neoplasm of eye; Z86.79 Personal history of other diseases of the circulatory system; Z95.1 Presence of aortocoronary bypass graft; Z95.5 Presence of coronary angioplasty implant and graft; Z95.810 Presence of automatic (implantable) cardiac defibrillator; Z82.49 Family history of ischemic heart disease and other diseases of the circulatory system; Z91.011 Allergy to milk products
CPT/HCPCS: 36415; 71045; 80048; 80053; 82553; 82962; 83735; 83880; 84484; 85025; 93005; 96365; J1650; J3475; Q0163; 99285-25

== ENCOUNTER 2018-05-19 09:24 | Inpatient (IN) | payer MEDICARE ==
[2018-05-19] VITALS (9 sets, daily range): BP systolic 117–138; BP diastolic 56–75
[~2018-05-19] VITALS: Ht 167.6 cm; Wt 52.2 kg
[~2018-05-19 09:24] MED LIST changes: +MAGN400C PO; +PROP150T2 PO
[2018-05-19 10:02] LABS: BASO % 1 % (0-3); EOS # 0.3 x10^3/uL (0.0-0.7); EOS % 4 % (0-3); HEMATOCRIT 35.5 % (39.0-53.0); HEMOGLOBIN 11.7 g/dL (13.0-17.5); LYMPH # 0.8 x10^3/uL (1.0-4.8); LYMPH % 12 % (24-48); MEAN CORPUSCULAR HEMOGLOBIN 29 pg (25-35); MEAN CORPUSCULAR HGB CONC 33 g/dL (31-37); MEAN CORPUSCULAR VOLUME 87 fL (79-100); MONO # 0.4 x10^3/uL (0.0-1.1); MONO % 6 % (0-9); NEUT # 5.3 x10^3uL (1.8-7.7); NEUT % 77 % (31-73); PLATELET COUNT 255 x10^3/uL (140-400); RED BLOOD COUNT 4.09 x10^6/uL (4.30-5.70); RED CELL DISTRIBUTION WIDTH 13.9 % (11.5-14.5); WHITE BLOOD COUNT 6.9 x10^3/uL (4.0-11.0)
--- NOTE | 2018-05-19 10:22 | RAD ---
EXAM: CHEST 1 VIEW History: Syncope COMPARISON: 05/07/2018 TECHNIQUE: Single portable radiograph of the chest FINDINGS: The cardiac silhouette is unremarkable. The lungs are clear bilaterally. The costophrenic sulci are clear and well demarcated. Left-sided cardiac pacer AICD is unchanged. IMPRESSION: No radiographic evidence of an acute cardiopulmonary process. Electronically signed by: Wesley Peterson MD (05/19/2018 10:18 AM) [facility]
[2018-05-19 10:28] LABS: CALCIUM 9.7 mg/dL (8.5-10.1); CREATININE 1.3 mg/dL (0.7-1.3)
[2018-05-19 10:34] LABS: ALBUMIN 3.6 g/dL (3.4-5.0); MAGNESIUM 1.7 mg/dL (1.8-2.4); TOTAL BILIRUBIN 0.3 mg/dL (0.2-1.0); TOTAL PROTEIN 7.2 g/dL (6.4-8.2)
[2018-05-19 10:43] LABS: CREATINE KINASE 24 U/L (39-308)
--- NOTE | 2018-05-19 10:51 | EKG ---
[facility] [address] [place] [address] Test Date: 2018-05-19 Test Time: 09:32:31 Pat Name: FRANK VAUGHN Department: Room: Gender: M Card Checker: : 1935 Requested By: JORDAN ENGLAND Order Number: [id number] Reading MD: Goran Larson MD Measurements Intervals [place] Rate: 86 P: VT: QRS: 99 QRSD: 136 T: 9 QT: 368 QTc: 443 Interpretive Statements SR RBBB NON-SPECIFIC ST/T CHANGES Electronically Signed On 05-21-2018 14:44:18 [employer]PUTY [employer]SECUTING [employer]ORNEY by Goran Larson MD
[2018-05-19] MEDS ORDERED: MAGNESIUM SULFATE 2GM 50 ML IV ONE (11:00)
--- NOTE | 2018-05-19 11:50 | PHYS DOC ---
Past Medical History Past Medical History: Diabetes-Type II, Heart Disease, Hypertension Additional Past Medical Histor: Eye Cancer, Prostate Cancer Past Surgical History: Angioplasty, Coronary Bypass Surgery, Pacemaker Additional Past Surgical Histo: Prostatectomy, Left Eye Surgery, Defib Placement, CARDIAC STENTS Alcohol Use: Occasionally Drug Use: None Adult General Chief Complaint Chief Complaint: NEAR SYNCOPE HPI HPI Patient is a 83 year old chest pressure, generalized weakness, felt like his AICD came on this morning. Patient was admitted here recently for the same problem. His AICD was adjusted. He denies any nausea, vomiting. He felt weak, felt like he may pass out. Review of Systems Review of Systems Constitutional: Denies fever or chills [] Eyes: Denies change in visual acuity, redness, or eye pain [] HENT: Denies nasal congestion or sore throat [] Respiratory: Denies cough or shortness of breath [] Cardiovascular: No additional information not addressed in HPI [] GI: Denies abdominal pain, nausea, vomiting, bloody stools or diarrhea [] : Denies dysuria or hematuria [] Musculoskeletal: Denies back pain or joint pain [] Integument: Denies rash or skin lesions [] Neurologic: Denies headache, focal weakness or sensory changes [] Endocrine: Denies polyuria or polydipsia [] All other systems were reviewed and found to be within normal limits, except as documented in this note. Current Medications Current Medications Current Medications Medications (Trade) Dose Ordered Sig/Deidra Start Time Stop Time Status Last Admin Dose Admin Magnesium Sulfate 50 ml @ 25 mls/hr 1X ONCE 05/19/18 11:00 05/19/18 12:59 05/19/18 11:00 25 MLS/HR Allergies Allergies Allergies Coded Allergies Type Severity Reaction Last Updated Verified Milk Containing Products Allergy Unknown 05/07/18 Yes Physical Exam Physical Exam Constitutional: Well developed, well nourished, no acute distress, non-toxic appearance. [] HENT: Normocephalic, atraumatic, bilateral external ears normal, oropharynx moist, no oral exudates, nose normal. [] Eyes: EOMI, conjunctiva normal, no discharge. [] Neck: Normal range of motion, no tenderness, supple, no stridor. [] Cardiovascular:Heart rate regular rhythm, no murmur [] Lungs & Thorax: Bilateral breath sounds clear to auscultation [] Abdomen: Bowel sounds normal, soft, no tenderness, no masses, no pulsatile masses. [] Skin: Warm, dry, no erythema, no rash. [] Back: No tenderness, no CVA tenderness. [] Extremities: No tenderness, no cyanosis, no clubbing, ROM intact, no edema. [] Neurologic: Alert and oriented X 3, normal motor function, normal sensory function, no focal deficits noted. [] Psychologic: Affect normal, judgement normal, mood normal. [] Current Patient Data Vital Signs Vital Signs Date Time Temp Pulse Resp B/P (MAP) Pulse Ox O2 Delivery O2 Flow Rate FiO2 05/19/18 11:23 72 18 97 05/19/18 09:41 97.6 142/69 (93) Room Air 97.6 Lab Values Laboratory Tests Test 05/19/18 09:50 05/19/18 09:59 White Blood Count 6.9 x10^3/uL (4.0-11.0) Red Blood Count 4.09 x10^6/uL (4.30-5.70) L Hemoglobin 11.7 g/dL (13.0-17.5) L Hematocrit 35.5 % (39.0-53.0) L Mean Corpuscular Volume 87 fL (79-100) Mean Corpuscular Hemoglobin 29 pg (25-35) Mean Corpuscular Hemoglobin Concent 33 g/dL (31-37) Red Cell Distribution Width 13.9 % (11.5-14.5) Platelet Count 255 x10^3/uL (140-400) Neutrophils (%) (Auto) 77 % (31-73) H Lymphocytes (%) (Auto) 12 % (24-48) L Monocytes (%) (Auto) 6 % (0-9) Eosinophils (%) (Auto) 4 % (0-3) H Basophils (%) (Auto) 1 % (0-3) Neutrophils # (Auto) 5.3 x10^3uL (1.8-7.7) Lymphocytes # (Auto) 0.8 x10^3/uL (1.0-4.8) L Monocytes # (Auto) 0.4 x10^3/uL (0.0-1.1) Eosinophils # (Auto) 0.3 x10^3/uL (0.0-0.7) Basophils # (Auto) 0.0 x10^3/uL (0.0-0.2) Prothrombin Time 14.0 SEC (11.7-14.0) Prothrombin Time INR 1.1 (0.8-1.1) Sodium Level 146 mmol/L (136-145) H Potassium Level 4.0 mmol/L (3.5-5.1) Chloride Level 108 mmol/L (98-107) H Carbon Dioxide Level 31 mmol/L (21-32) Anion Gap 7 (6-14) Blood Urea Nitrogen 22 mg/dL (8-26) Creatinine 1.3 mg/dL (0.7-1.3) Estimated GFR (Cockcroft-Gault) 53.0 BUN/Creatinine Ratio 17 (6-20) Glucose Level 83 mg/dL (70-99) Calcium Level 9.7 mg/dL (8.5-10.1) Magnesium Level 1.7 mg/dL (1.8-2.4) L Total Bilirubin 0.3 mg/dL (0.2-1.0) Aspartate Amino Transferase (AST) 15 U/L (15-37) Alanine Aminotransferase (ALT) 18 U/L (16-63) Alkaline Phosphatase 38 U/L (46-116) L Creatine Kinase 24 U/L (39-308) L Creatine Kinase MB (Mass) < 0.5 ng/mL (0.0-3.6) Creatine Kinase MB Relative Index % (0-4) Troponin I Quantitative < 0.017 ng/mL (0.000-0.055) LO-Its-H-Type Natriuretic Peptide 842 pg/mL (0-449) H Total Protein 7.2 g/dL (6.4-8.2) Albumin 3.6 g/dL (3.4-5.0) Albumin/Globulin Ratio 1.0 (1.0-1.7) Glucose (Fingerstick) 89 mg/dL (70-99) Laboratory Tests 05/19/18 09:50 Laboratory Tests 05/19/18 09:50 EKG EKG EKG RATE OF 87 BPM, RBBB, AFIB NO STEMI. [] Radiology/Procedures Radiology/Procedures [] Course & Med Decision Making Course & Med Decision Making Pertinent Labs and Imaging studies reviewed. (See chart for details) [] Dragon Disclaimer Dragon Disclaimer This electronic medical record was generated, in whole or in part, using a voice recognition dictation system. Departure Departure Impression: Primary Impression: Nonsustained paroxysmal ventricular tachycardia Disposition: 09 ADMITTED INPATIENT Admitting Physician: Emmie Meng Condition: STABLE Referrals: ADRIAN JOHNSON MD (PCP) JORDAN ENGLAND DO May 19, 2018 11:50
[2018-05-19 12:43] LABS: BILIRUBIN,URINE NEGATIVE (NEG); CLARITY,URINE TURBID; COLOR,URINE YELLOW; NITRITE,URINE NEGATIVE (NEG); PH,URINE 7.5; PROTEIN,URINE NEGATIVE (NEG-TRACE)
[2018-05-19 12:56] LABS: BACTERIA,URINE 0 /HPF (0-FEW); RBC,URINE 0 /HPF (0-2); WBC,URINE 0 /HPF (0-4)
[2018-05-19 12:57] LABS: AMORPHOUS SEDIMENT,UR PRESENT /HPF
[2018-05-19] MEDS ORDERED: AMIODARONE 900 MG in IV DEXTROSE 5% 500 ML IV PRN ×2 (13:15→14:30)
--- NOTE | 2018-05-19 13:39 | PDOC2 ---
CONSULT Date of Consult Date of Consult DATE: 05/19/18 TIME: 13:29 Reason for Consult Reason for Consult: Ventricular tachycardia Referring Physician Referring Physician: Dr. Meng Identification/Chief Complaint Chief Complaint Ventricular tachycardia History of Present Illness Reason for Visit: This patient is an 83-year-old gentleman with a long cardiac history that has a cardiomyopathy and known coronary artery disease. He is status post CABG and status post AICD pacemaker. Recently the patient's overall condition has been deteriorating, he has been loosing weight and has had some issues with memory as well as some confusion from time to time. The patient had been admitted because of an episode of ventricular tachycardia that caused his AICD to go off. He was tried on different antiarrhythmics. He has been on sotalol, flecainide, and other beta blockers. Today he was at home when he is AICD went off again and the patient was brought to the emergency room. After arrival in the ER he had the AICD interrogated by [facility] and it was reported that the patient had multiple episodes of ventricular tachycardia and had been shocked. Presently the patient is awake and alert and responsive and in sinus rhythm. Patient denies having any palpitations or chest pains at this time and while at rest he is not having any dyspnea. He states that he has also continued to lose some weight even though he eats a lot. The patient has a known history of diabetes as well as a cancer of the prostate in the past. Past Medical History Cardiovascular: AFIB, CAD, HTN, Other Pulmonary: Bronchitis, COPD GI: GERD Heme/Onc: Cancer Hepatobiliary: No pertinent hx Psych: No pertinent hx, Other Rheumatologic: Other Infectious disease: No pertinent hx Renal/: Chronic renal insuff, Prostate Ca. Endocrine: Diabetes Past Surgical History Past Surgical History: Pacemaker, CABG, Other Family History Family History: Diabetes, Heart Disease Social History ALCOHOL: none Drugs: None Current Medications Current Medications Current Medications Magnesium Sulfate 50 ml @ 25 mls/hr 1X ONCE IV Last administered on 05/19/18at 11:00; Start 05/19/18 at 11:00; Stop 05/19/18 at 12:59; Status DC Amiodarone HCl 150 mg/Dextrose 103 ml @ 600 mls/hr 1X ONCE IV ; Start at 14:00; Stop 05/19/18 at 14:10 Amiodarone HCl 900 mg/Dextrose 518 ml @ 33.33 mls/ hr CONT PRN IV SEE I/O RECORD; Start 05/19/18 at 14:30 Amiodarone HCl 900 mg/Dextrose 518 ml @ 16.67 mls/ hr CONT PRN IV SEE I/O RECORD; Start 05/19/18 at 13:15; Stop 05/20/18 at 07:14 Active Scripts Active Mag-Oxide (Magnesium Oxide) 400 Mg Tablet 400 Mg PO BID 30 Days Propafenone Hcl 150 Mg Tablet 150 Mg PO BID 30 Days Reported [melatonin] 10 Mg PO QHS Centrum Silver Tablet (Multivits-Min/Fa/Lycopene/Lut) 1 Each Tablet 1 Tab DAILY Acetadryl 500-25 Mg Caplet (Acetaminophen/Diphenhydramine) 1 Each Tablet 1 Tab HS Aspir-Marybeth (Aspirin) 325 Mg Tablet.dr 1 Tab PO DAILY16 Metformin Hcl 500 Mg Tablet 1 Tab BIDBFRMEAL Atorvastatin Calcium 20 Mg Tablet 1 Tab DAILY16 Allergies Allergies: Coded Allergies: Milk Containing Products (Verified Allergy, Unknown, 05/07/18) Physical Exam General: Alert, Oriented X3, Cooperative HEENT: PERRLA, Mucous membr. moist/pink Lungs: Clear to auscultation Heart: Regular rate, Normal S1, Normal S2 Abdomen: Normal bowel sounds, Soft Extremities: No edema Psych/Mental Status: Mental status NL Vitals VITALS Vital Signs Date Time Temp Pulse Resp B/P (MAP) Pulse Ox O2 Delivery O2 Flow Rate FiO2 05/19/18 13:20 97.5 86 16 138/75 (96) 98 Room Air 97.5 Labs Labs Laboratory Tests Test 05/19/18 09:50 05/19/18 09:59 05/19/18 12:33 White Blood Count 6.9 x10^3/uL (4.0-11.0) Red Blood Count 4.09 x10^6/uL (4.30-5.70) Hemoglobin 11.7 g/dL (13.0-17.5) Hematocrit 35.5 % (39.0-53.0) Mean Corpuscular Volume 87 fL (79-100) Mean Corpuscular Hemoglobin 29 pg (25-35) Mean Corpuscular Hemoglobin Concent 33 g/dL (31-37) Red Cell Distribution Width 13.9 % (11.5-14.5) Platelet Count 255 x10^3/uL (140-400) Neutrophils (%) (Auto) 77 % (31-73) Lymphocytes (%) (Auto) 12 % (24-48) Monocytes (%) (Auto) 6 % (0-9) Eosinophils (%) (Auto) 4 % (0-3) Basophils (%) (Auto) 1 % (0-3) Neutrophils # (Auto) 5.3 x10^3uL (1.8-7.7) Lymphocytes # (Auto) 0.8 x10^3/uL (1.0-4.8) Monocytes # (Auto) 0.4 x10^3/uL (0.0-1.1) Eosinophils # (Auto) 0.3 x10^3/uL (0.0-0.7) Basophils # (Auto) 0.0 x10^3/uL (0.0-0.2) Prothrombin Time 14.0 SEC (11.7-14.0) Prothromb Time International Ratio 1.1 (0.8-1.1) Sodium Level 146 mmol/L (136-145) Potassium Level 4.0 mmol/L (3.5-5.1) Chloride Level 108 mmol/L (98-107) Carbon Dioxide Level 31 mmol/L (21-32) Anion Gap 7 (6-14) Blood Urea Nitrogen 22 mg/dL (8-26) Creatinine 1.3 mg/dL (0.7-1.3) Estimated GFR (Cockcroft-Gault) 53.0 BUN/Creatinine Ratio 17 (6-20) Glucose Level 83 mg/dL (70-99) Calcium Level 9.7 mg/dL (8.5-10.1) Magnesium Level 1.7 mg/dL (1.8-2.4) Total Bilirubin 0.3 mg/dL (0.2-1.0) Aspartate Amino Transf (AST/SGOT) 15 U/L (15-37) Alanine Aminotransferase (ALT/SGPT) 18 U/L (16-63) Alkaline Phosphatase 38 U/L (46-116) Creatine Kinase 24 U/L (39-308) Creatine Kinase MB (Mass) < 0.5 ng/mL (0.0-3.6) Creatine Kinase MB Relative Index % (0-4) Troponin I Quantitative < 0.017 ng/mL (0.000-0.055) ZF-Vuy-P-Type Natriuretic Peptide 842 pg/mL (0-449) Total Protein 7.2 g/dL (6.4-8.2) Albumin 3.6 g/dL (3.4-5.0) Albumin/Globulin Ratio 1.0 (1.0-1.7) Glucose (Fingerstick) 89 mg/dL (70-99) Urine Collection Type Void Urine Color Yellow Urine Clarity Turbid Urine pH 7.5 Urine Specific [place] 1.020 Urine Protein Negative mg/dL (NEG-TRACE) Urine Glucose (UA) Negative mg/dL (NEG) Urine Ketones (Stick) Negative mg/dL (NEG) Urine Blood Negative (NEG) Urine Nitrite Negative (NEG) Urine Bilirubin Negative (NEG) Urine Urobilinogen Dipstick 1.0 mg/dL (0.2 mg/dL) Urine Leukocyte Esterase Negative (NEG) Urine RBC 0 /HPF (0-2) Urine WBC 0 /HPF (0-4) Urine Amorphous Sediment Present /HPF Urine Bacteria 0 /HPF (0-FEW) Laboratory Tests Test 05/19/18 09:50 05/19/18 09:59 05/19/18 12:33 White Blood Count 6.9 x10^3/uL (4.0-11.0) Red Blood Count 4.09 x10^6/uL (4.30-5.70) Hemoglobin 11.7 g/dL (13.0-17.5) Hematocrit 35.5 % (39.0-53.0) Mean Corpuscular Volume 87 fL (79-100) Mean Corpuscular Hemoglobin 29 pg (25-35) Mean Corpuscular Hemoglobin Concent 33 g/dL (31-37) Red Cell Distribution Width 13.9 % (11.5-14.5) Platelet Count 255 x10^3/uL (140-400) Neutrophils (%) (Auto) 77 % (31-73) Lymphocytes (%) (Auto) 12 % (24-48) Monocytes (%) (Auto) 6 % (0-9) Eosinophils (%) (Auto) 4 % (0-3) Basophils (%) (Auto) 1 % (0-3) Neutrophils # (Auto) 5.3 x10^3uL (1.8-7.7) Lymphocytes # (Auto) 0.8 x10^3/uL (1.0-4.8) Monocytes # (Auto) 0.4 x10^3/uL (0.0-1.1) Eosinophils # (Auto) 0.3 x10^3/uL (0.0-0.7) Basophils # (Auto) 0.0 x10^3/uL (0.0-0.2) Prothrombin Time 14.0 SEC (11.7-14.0) Prothromb Time International Ratio 1.1 (0.8-1.1) Sodium Level 146 mmol/L (136-145) Potassium Level 4.0 mmol/L (3.5-5.1) Chloride Level 108 mmol/L (98-107) Carbon Dioxide Level 31 mmol/L (21-32) Anion Gap 7 (6-14) Blood Urea Nitrogen 22 mg/dL (8-26) Creatinine 1.3 mg/dL (0.7-1.3) Estimated GFR (Cockcroft-Gault) 53.0 BUN/Creatinine Ratio 17 (6-20) Glucose Level 83 mg/dL (70-99) Calcium Level 9.7 mg/dL (8.5-10.1) Magnesium Level 1.7 mg/dL (1.8-2.4) Total Bilirubin 0.3 mg/dL (0.2-1.0) Aspartate Amino Transf (AST/SGOT) 15 U/L (15-37) Alanine Aminotransferase (ALT/SGPT) 18 U/L (16-63) Alkaline Phosphatase 38 U/L (46-116) Creatine Kinase 24 U/L (39-308) Creatine Kinase MB (Mass) < 0.5 ng/mL (0.0-3.6) Creatine Kinase MB Relative Index % (0-4) Troponin I Quantitative < 0.017 ng/mL (0.000-0.055) UW-Zth-N-Type Natriuretic Peptide 842 pg/mL (0-449) Total Protein 7.2 g/dL (6.4-8.2) Albumin 3.6 g/dL (3.4-5.0) Albumin/Globulin Ratio 1.0 (1.0-1.7) Glucose (Fingerstick) 89 mg/dL (70-99) Urine Collection Type Void Urine Color Yellow Urine Clarity Turbid Urine pH 7.5 Urine Specific [place] 1.020 Urine Protein Negative mg/dL (NEG-TRACE) Urine Glucose (UA) Negative mg/dL (NEG) Urine Ketones (Stick) Negative mg/dL (NEG) Urine Blood Negative (NEG) Urine Nitrite Negative (NEG) Urine Bilirubin Negative (NEG) Urine Urobilinogen Dipstick 1.0 mg/dL (0.2 mg/dL) Urine Leukocyte Esterase Negative (NEG) Urine RBC 0 /HPF (0-2) Urine WBC 0 /HPF (0-4) Urine Amorphous Sediment Present /HPF Urine Bacteria 0 /HPF (0-FEW) Assessment/Plan Assessment/Plan This patient comes in after an episode of ventricular tachycardia. He has an ischemic cardiomyopathy. Will start him on IV amiodarone today and then tomorrow will start the by mouth loading of the amiodarone. The flecainide does not seem to be controlling the rhythm even after increasing the dose. I'm concerned with the patient's loss of weight for no apparent reason therefore I would like to get a CT of the chest abdomen and pelvis without contrast and also because of the history of the prostate cancer get a bone scan. Will check a PSA. I would like to also check other labs including a thyroid profile, magnesium level, calcium level, after multiple shocks it's a waste of time to check more troponins. We will give the patient IV magnesium today. Thank you very much for asking me to participate in the care of this patient. JESSE RAND MD May 19, 2018 13:38
[2018-05-19] MEDS ORDERED: AMIODARONE 150 MG in IV DEXTROSE 5% 100ML 100 ML IV ONE (14:00)
--- NOTE | 2018-05-19 14:36 | HP ---
ADMIT DATE: 05/19/2018 ADMISSION DIAGNOSIS: Ventricular tachycardia. HISTORY OF PRESENT ILLNESS: This is an 83-year-old white male with longstanding heart disease who has an AICD and he felt like he was going to have a spell where it might fire again. That has recently happened and he was hospitalized for it. His medications were adjusted, but he is still having typically morning symptoms when he wakes up in the morning. This morning, he had a fullness in his neck that went up into his jaw area and he felt quite lightheaded, but did not have a syncopal episode and did not feel his defibrillator discharge. He did not feel his heart racing. He says typically when he has symptoms like this in the morning, it is because he has had several episodes of nocturia overnight. He has a history of prostate cancer. He also has a history of low magnesium and his magnesium again this visit is low. He has been seen in the Emergency Room without any findings of an acute cardiac event and is being admitted. Dr. Rodas plans to start him on amiodarone. PAST MEDICAL HISTORY: Type 2 diabetes, heart disease, hypertension, prostate cancer, eye cancer. PAST SURGICAL HISTORY: Include angioplasty, coronary artery bypass, pacemaker placement, AICD placement, prostatectomy, left eye surgery. ALLERGIES: TO MILK CONTAINING PRODUCTS. HOME MEDICATIONS: Propafenone 150 mg b.i.d., atorvastatin 20 mg daily, aspirin 325 daily, acetaminophen/diphenhydramine 500-25 one at bedtime, magnesium oxide 2 tabs 400 mg daily, metformin 500 mg b.i.d. with meals, a multivitamin daily and melatonin at bedtime. FAMILY HISTORY: Noncontributory. SOCIAL HISTORY: He rarely drinks alcohol. Does not smoke. He is , is present. REVIEW OF SYSTEMS: CONSTITUTIONAL: No fever, chills or night sweats. HEENT: No change in his hearing, vision or taste. CARDIOVASCULAR: As above. PULMONARY: Negative for cough or shortness of breath. GASTROINTESTINAL: Negative for change in bowels, nausea or vomiting. GENITOURINARY: As above. MUSCULOSKELETAL: Generalized weakness. He has had some slow but progressive weight loss too. SKIN: No bleeding or bruising. NEUROLOGIC: Perhaps some memory loss. PHYSICAL EXAMINATION: VITAL SIGNS: He is afebrile with room air oxygen saturation 98%, blood pressure 138/75, heart rate 86, respiratory rate of 16. GENERAL: He is in no acute distress. He is lying comfortably on the bed. He is alert and oriented. His is present. HEENT: Shows his conjunctiva to be clear. Mucous membranes to be moist. NECK: Supple. Unable to hear any bruits. HEART: Regular rate and rhythm. AICD is nontender. CHEST: Nontender. Lungs are clear anteriorly. ABDOMEN: Soft, nondistended, nontender. EXTREMITIES: Without clubbing or cyanosis. SKIN: Turgor is normal. 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 LABORATORY DATA: Mild anemia with hemoglobin 11.7, hematocrit 35.5, platelets 255, white count 6.9. Coags show an INR of 1.1. Sodium slightly high 4.6, chloride is high at 108, potassium is normal at 4. Creatinine is 1.3, which is consistent with his baseline. Magnesium is 1.7, which is low. ProBNP is 842, which is minimally elevated. Creatinine kinase is normal. Liver enzymes are normal. Urinalysis was yellow and turbid showing some amorphous sediment, but no bacteria, white cells and is negative for nitrite, blood and leukocyte esterase. IMAGING STUDIES: Chest x-ray shows clear lungs. Cardiac silhouette is unremarkable. Left-sided cardiac pacer is in place. ASSESSMENT AND PLAN: 1. Nonsustained ventricular tachycardia. He is admitted for management of his medications. Dr. Rodas will follow. He has had some progressive weakness, weight loss and he does have a history of prostate cancer. 2. Hypomagnesemia. This is chronic on and off, it is contributing to his arrhythmias. We will ask renal to see. W Maddy AZUL MD DR: CRUZITO/mustapha JOB#: [id number] / [id number]
[2018-05-19] MEDS ORDERED: MAGNESIUM SULFATE 1GM 100 ML IV ONE (15:00)
[2018-05-19] MEDS ORDERED: ATORVASTATIN CALCIUM 20 MG TABLET PO SCH (16:00)
[2018-05-19] MEDS: ASPIRIN ENTERIC COATED 325 MG TABLET.DR. PO SCH ×2 (16:00→17:33)
[2018-05-19] MEDS: MULTIVITAMIN with MINERAL TABLET. PO SCH (17:00)
[2018-05-19] MEDS: metFORMIN 500 MG TABLET PO SCH (17:29)
[2018-05-19] MEDS: MAGNESIUM OXIDE 400 MG TABLET PO SCH (20:39)
[2018-05-19] MEDS: ATORVASTATIN CALCIUM 20 MG TABLET PO SCH (20:39)
[2018-05-19] MEDS: ACETAMINOPHEN 500 MG TABLET PO SCH (20:39)
[2018-05-19] MEDS: diphenhydrAMINE HCL 25 MG CAPSULE PO SCH (20:39)
[2018-05-19] MEDS ORDERED: MELATONIN 10 MG PO SCH (21:00)
[2018-05-20] VITALS (7 sets, daily range): BP systolic 105–133; BP diastolic 50–68
[2018-05-20 05:23] LABS: BASO # 0.1 x10^3/uL (0.0-0.2); BASO % 1 % (0-3); EOS # 0.4 x10^3/uL (0.0-0.7); EOS % 6 % (0-3); HEMATOCRIT 32.7 % (39.0-53.0); HEMOGLOBIN 10.9 g/dL (13.0-17.5); LYMPH # 1.1 x10^3/uL (1.0-4.8); LYMPH % 16 % (24-48); MEAN CORPUSCULAR HEMOGLOBIN 29 pg (25-35); MEAN CORPUSCULAR HGB CONC 34 g/dL (31-37); MEAN CORPUSCULAR VOLUME 86 fL (79-100); MONO # 0.5 x10^3/uL (0.0-1.1); MONO % 7 % (0-9); NEUT # 4.8 x10^3uL (1.8-7.7); NEUT % 70 % (31-73); PLATELET COUNT 219 x10^3/uL (140-400); RED CELL DISTRIBUTION WIDTH 14.2 % (11.5-14.5); WHITE BLOOD COUNT 6.8 x10^3/uL (4.0-11.0)
[2018-05-20 05:43] LABS: CALCIUM 9.2 mg/dL (8.5-10.1); CREATININE 1.2 mg/dL (0.7-1.3); GFR 58.1; MAGNESIUM 1.9 mg/dL (1.8-2.4); POTASSIUM 3.9 mmol/L (3.5-5.1); TOTAL BILIRUBIN 0.3 mg/dL (0.2-1.0); TOTAL PROTEIN 6.1 g/dL (6.4-8.2)
[2018-05-20 06:31] LABS: FREE T4 1.07 ng/dL (0.76-1.46); THYROID STIM HORMONE (TSH) 1.067 uIU/mL (0.358-3.74)
[2018-05-20] MEDS: MULTIVITAMIN with MINERAL TABLET. PO SCH (09:39)
[2018-05-20] MEDS: AMIODARONE HCL 200 MG TABLET. PO SCH ×2 (09:39→21:16)
[2018-05-20] MEDS: metFORMIN 500 MG TABLET PO SCH (09:39)
[2018-05-20] MEDS: MAGNESIUM OXIDE 400 MG TABLET PO SCH ×2 (09:40→21:17)
[2018-05-20] MEDS ORDERED: CONTRAST GIVEN. MC PRN (10:30)
[2018-05-20] MEDS ORDERED: IOHEXOL 240 MG/ML 50ML VIAL. PO ONE (10:30)
--- NOTE | 2018-05-20 10:48 | PDOC2 ---
CONSULT Date of Consult Date of Consult DATE: 05/20/18 TIME: 10:40 Reason for Consult Reason for Consult: LOW MAG Referring Physician Referring Physician: Identification/Chief Complaint Chief Complaint AICD WENT OFF Source Source: Chart review, Patient History of Present Illness Reason for Visit: THIS IS AN 83 YR OLD WITH VTACH WHICH MADE HIS AICD GO OFF. CURRENTLY UNDERGOING EVALUATION FOR THIS WITH CARDIOLOGY. PT NOTED TO HAVE SOME CHRONICALLY LOW MAG LEVELS. HAS BEEN ON SUPPLEMENTS. HAS NOT EVER BEEN ON ANY DIURETICS PER PT. DENIES HAVING ANY LOW POTASSIUM PROBLEMS. NO CKD NOTED. NO CA ABNORMALITIES. 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 DENIED ANY DIARRHEA. NOT ON ANY H2 BLOCKERS OR PPI'S Past Medical History Cardiovascular: AFIB, CAD, HTN, Other Pulmonary: Bronchitis, COPD GI: GERD Heme/Onc: Cancer Hepatobiliary: No pertinent hx Psych: No pertinent hx, Other Rheumatologic: Other Infectious disease: No pertinent hx Renal/: Chronic renal insuff, Prostate Ca. Endocrine: Diabetes Past Surgical History Past Surgical History: Pacemaker, CABG, Other Family History Family History: Diabetes, Heart Disease Social History ALCOHOL: none Drugs: None Current Medications Current Medications Current Medications Magnesium Sulfate 50 ml @ 25 mls/hr 1X ONCE IV Last administered on 05/19/18at 11:00; Start 05/19/18 at 11:00; Stop 05/19/18 at 12:59; Status DC Amiodarone HCl 150 mg/Dextrose 103 ml @ 600 mls/hr 1X ONCE IV Last administered on 05/19/18at 13:49; Start 05/19/18 at 14:00; Stop 05/19/18 at 14:10 ; Status DC Amiodarone HCl 900 mg/Dextrose 518 ml @ 33.33 mls/ hr CONT PRN IV SEE I/O RECORD Last administered on 05/19/18at 13:49; Start 05/19/18 at 14:30; Stop 05/19 at 14:30; Status DC Amiodarone HCl 900 mg/Dextrose 518 ml @ 16.67 mls/ hr CONT PRN IV SEE I/O RECORD; Start 05/19/18 at 13:15; Stop 05/20/18 at 07:14; Status DC Aspirin (Ecotrin) 325 mg DAILY16 PO Last administered on 05/19/18at 17:33; Start 05/19/18 at 16:00 Atorvastatin Calcium (Lipitor) 20 mg DAILY16 PO ; Start 05/19/18 at 16:00; Stop 05/19/18 at 16:12; Status DC Acetaminophen (Tylenol) 500 mg QHS PO Last administered on 05/19/18at 20:39; Start 05/19/18 at 21:00 Magnesium Oxide (Magnesium Oxide) 400 mg BID PO Last administered on 05/20/18at 09:40; Start 05/19/18 at 21:00 Metformin HCl (Glucophage) 500 mg BIDWMEALS PO Last administered on 05/20/18at 09:39; Start 05/19/18 at 17:00; Stop 05/20/18 at 10:24; Status DC Multivitamins (Thera M Plus) 1 tab DAILY PO Last administered on 05/20/18at 09: 39; Start 05/19/18 at 17:00 Non-Formulary Medication ([melatonin] ) 10 mg QHS PO ; Start 05/19/18 at 21:00; Status UNV Magnesium Sulfate/ Dextrose 100 ml @ 100 mls/hr 1X ONCE IV ; Start 05/19/18 at 15:00; Stop 05/19/18 at 15:43; Status DC Diphenhydramine HCl (Benadryl) 25 mg QHS PO Last administered on 05/19/18at 20: 39; Start 05/19/18 at 21:00 Atorvastatin Calcium (Lipitor) 20 mg QHS PO Last administered on 05/19/18at 20: 39; Start 05/19/18 at 21:00 Amiodarone HCl (Cordarone) 400 mg BID PO Last administered on 05/20/18at 09:39; Start 05/20/18 at 09:00 Iohexol (Omnipaque 240 Mg/ml) 50 ml 1X ONCE PO ; Start 05/20/18 at 10:30; Stop 05/20/18 at 10:31; Status DC Info (CONTRAST GIVEN -- Rx MONITORING) 1 each PRN DAILY PRN MC SEE COMMENTS; Start 05/20/18 at 10:30; Stop 05/22/18 at 10:29 Metformin HCl (Glucophage) 500 mg BIDWMEALS PO ; Start 05/22/18 at 08:00 Active Scripts Active Mag-Oxide (Magnesium Oxide) 400 Mg Tablet 400 Mg PO BID 30 Days Propafenone Hcl 150 Mg Tablet 150 Mg PO BID 30 Days Reported [melatonin] 10 Mg PO QHS Centrum Silver Tablet (Multivits-Min/Fa/Lycopene/Lut) 1 Each Tablet 1 Tab DAILY Acetadryl 500-25 Mg Caplet (Acetaminophen/Diphenhydramine) 1 Each Tablet 1 Tab HS Aspir-Marybeth (Aspirin) 325 Mg Tablet.dr 1 Tab PO DAILY16 Metformin Hcl 500 Mg Tablet 1 Tab BIDBFRMEAL Atorvastatin Calcium 20 Mg Tablet 1 Tab DAILY16 Allergies Allergies: Coded Allergies: Milk Containing Products (Verified Allergy, Unknown, 05/07/18) ROS General: YES: Fatigue, Malaise PSYCHOLOGICAL ROS: YES: Depression Eyes: Yes Decreased vision HEENT: YES: Heacaches Respiratory: YES: Cough Cardiovascular: yes Palpitations Gastrointestinal: Yes Constipation Genitourinary: YES Other (NOCTURIA) Musculoskeletal: Yes Muscular Weakness Neurological: Yes Weakness Skin: Yes Dry Skin Physical Exam General: Alert, Cooperative, No acute distress HEENT: Atraumatic, PERRLA, Mucous membr. moist/pink Lungs: Clear to auscultation Heart: Regular rate Abdomen: Normal bowel sounds, Soft, No tenderness Skin: No breakdown Neuro: Normal speech, Cranial nerves 3-12 NL Psych/Mental Status: Mental status NL, Mood NL MUSCULOSKELETAL: No deformity, No swelling Vitals VITALS Vital Signs Date Time Temp Pulse Resp B/P (MAP) Pulse Ox O2 Delivery O2 Flow Rate FiO2 05/20/18 09:39 66 133/59 05/20/18 08:33 Room Air 05/20/18 07:35 97.5 14 97 97.5 Labs Labs Laboratory Tests Test 05/19/18 09:50 05/19/18 09:59 05/19/18 12:33 05/20/18 04:45 White Blood Count 6.9 x10^3/uL (4.0-11.0) 6.8 x10^3/uL (4.0-11.0) Red Blood Count 4.09 x10^6/uL (4.30-5.70) 3.80 x10^6/uL (4.30-5.70) Hemoglobin 11.7 g/dL (13.0-17.5) 10.9 g/dL (13.0-17.5) Hematocrit 35.5 % (39.0-53.0) 32.7 % (39.0-53.0) Mean Corpuscular Volume 87 fL (79-100) 86 fL (79-100) Mean Corpuscular Hemoglobin 29 pg (25-35) 29 pg (25-35) Mean Corpuscular Hemoglobin Concent 33 g/dL (31-37) 34 g/dL (31-37) Red Cell Distribution Width 13.9 % (11.5-14.5) 14.2 % (11.5-14.5) Platelet Count 255 x10^3/uL (140-400) 219 x10^3/uL (140-400) Neutrophils (%) (Auto) 77 % (31-73) 70 % (31-73) Lymphocytes (%) (Auto) 12 % (24-48) 16 % (24-48) Monocytes (%) (Auto) 6 % (0-9) 7 % (0-9) Eosinophils (%) (Auto) 4 % (0-3) 6 % (0-3) Basophils (%) (Auto) 1 % (0-3) 1 % (0-3) Neutrophils # (Auto) 5.3 x10^3uL (1.8-7.7) 4.8 x10^3uL (1.8-7.7) Lymphocytes # (Auto) 0.8 x10^3/uL (1.0-4.8) 1.1 x10^3/uL (1.0-4.8) Monocytes # (Auto) 0.4 x10^3/uL (0.0-1.1) 0.5 x10^3/uL (0.0-1.1) Eosinophils # (Auto) 0.3 x10^3/uL (0.0-0.7) 0.4 x10^3/uL (0.0-0.7) Basophils # (Auto) 0.0 x10^3/uL (0.0-0.2) 0.1 x10^3/uL (0.0-0.2) Prothrombin Time 14.0 SEC (11.7-14.0) Prothromb Time International Ratio 1.1 (0.8-1.1) Sodium Level 146 mmol/L (136-145) 144 mmol/L (136-145) Potassium Level 4.0 mmol/L (3.5-5.1) 3.9 mmol/L (3.5-5.1) Chloride Level 108 mmol/L (98-107) 108 mmol/L (98-107) Carbon Dioxide Level 31 mmol/L (21-32) 28 mmol/L (21-32) Anion Gap 7 (6-14) 8 (6-14) Blood Urea Nitrogen 22 mg/dL (8-26) 21 mg/dL (8-26) Creatinine 1.3 mg/dL (0.7-1.3) 1.2 mg/dL (0.7-1.3) Estimated GFR (Cockcroft-Gault) 53.0 58.1 BUN/Creatinine Ratio 17 (6-20) 18 (6-20) Glucose Level 83 mg/dL (70-99) 85 mg/dL (70-99) Calcium Level 9.7 mg/dL (8.5-10.1) 9.2 mg/dL (8.5-10.1) Magnesium Level 1.7 mg/dL (1.8-2.4) 1.9 mg/dL (1.8-2.4) Total Bilirubin 0.3 mg/dL (0.2-1.0) 0.3 mg/dL (0.2-1.0) Aspartate Amino Transf (AST/SGOT) 15 U/L (15-37) 12 U/L (15-37) Alanine Aminotransferase (ALT/SGPT) 18 U/L (16-63) 12 U/L (16-63) Alkaline Phosphatase 38 U/L (46-116) 27 U/L (46-116) Creatine Kinase 24 U/L (39-308) Creatine Kinase MB (Mass) < 0.5 ng/mL (0.0-3.6) Creatine Kinase MB Relative Index % (0-4) Troponin I Quantitative < 0.017 ng/mL (0.000-0.055) FD-Yab-R-Type Natriuretic Peptide 842 pg/mL (0-449) Total Protein 7.2 g/dL (6.4-8.2) 6.1 g/dL (6.4-8.2) Albumin 3.6 g/dL (3.4-5.0) 3.0 g/dL (3.4-5.0) Albumin/Globulin Ratio 1.0 (1.0-1.7) 1.0 (1.0-1.7) Glucose (Fingerstick) 89 mg/dL (70-99) Urine Collection Type Void Urine Color Yellow Urine Clarity Turbid Urine pH 7.5 Urine Specific [place] 1.020 Urine Protein Negative mg/dL (NEG-TRACE) Urine Glucose (UA) Negative mg/dL (NEG) Urine Ketones (Stick) Negative mg/dL (NEG) Urine Blood Negative (NEG) Urine Nitrite Negative (NEG) Urine Bilirubin Negative (NEG) Urine Urobilinogen Dipstick 1.0 mg/dL (0.2 mg/dL) Urine Leukocyte Esterase Negative (NEG) Urine RBC 0 /HPF (0-2) Urine WBC 0 /HPF (0-4) Urine Amorphous Sediment Present /HPF Urine Bacteria 0 /HPF (0-FEW) Thyroid Stimulating Hormone (TSH) 1.067 uIU/mL (0.358-3.74) Free Thyroxine 1.07 ng/dL (0.76-1.46) Free Triiodothyronine (T3) pg/mL 1.68 pg/mL (2.18-3.98) Laboratory Tests Test 05/19/18 12:33 05/20/18 04:45 Urine Collection Type Void Urine Color Yellow Urine Clarity Turbid Urine pH 7.5 Urine Specific [place] 1.020 Urine Protein Negative mg/dL (NEG-TRACE) Urine Glucose (UA) Negative mg/dL (NEG) Urine Ketones (Stick) Negative mg/dL (NEG) Urine Blood Negative (NEG) Urine Nitrite Negative (NEG) Urine Bilirubin Negative (NEG) Urine Urobilinogen Dipstick 1.0 mg/dL (0.2 mg/dL) Urine Leukocyte Esterase Negative (NEG) Urine RBC 0 /HPF (0-2) Urine WBC 0 /HPF (0-4) Urine Amorphous Sediment Present /HPF Urine Bacteria 0 /HPF (0-FEW) White Blood Count 6.8 x10^3/uL (4.0-11.0) Red Blood Count 3.80 x10^6/uL (4.30-5.70) Hemoglobin 10.9 g/dL (13.0-17.5) Hematocrit 32.7 % (39.0-53.0) Mean Corpuscular Volume 86 fL (79-100) Mean Corpuscular Hemoglobin 29 pg (25-35) Mean Corpuscular Hemoglobin Concent 34 g/dL (31-37) Red Cell Distribution Width 14.2 % (11.5-14.5) Platelet Count 219 x10^3/uL (140-400) Neutrophils (%) (Auto) 70 % (31-73) Lymphocytes (%) (Auto) 16 % (24-48) Monocytes (%) (Auto) 7 % (0-9) Eosinophils (%) (Auto) 6 % (0-3) Basophils (%) (Auto) 1 % (0-3) Neutrophils # (Auto) 4.8 x10^3uL (1.8-7.7) Lymphocytes # (Auto) 1.1 x10^3/uL (1.0-4.8) Monocytes # (Auto) 0.5 x10^3/uL (0.0-1.1) Eosinophils # (Auto) 0.4 x10^3/uL (0.0-0.7) Basophils # (Auto) 0.1 x10^3/uL (0.0-0.2) Sodium Level 144 mmol/L (136-145) Potassium Level 3.9 mmol/L (3.5-5.1) Chloride Level 108 mmol/L (98-107) Carbon Dioxide Level 28 mmol/L (21-32) Anion Gap 8 (6-14) Blood Urea Nitrogen 21 mg/dL (8-26) Creatinine 1.2 mg/dL (0.7-1.3) Estimated GFR (Cockcroft-Gault) 58.1 BUN/Creatinine Ratio 18 (6-20) Glucose Level 85 mg/dL (70-99) Calcium Level 9.2 mg/dL (8.5-10.1) Magnesium Level 1.9 mg/dL (1.8-2.4) Total Bilirubin 0.3 mg/dL (0.2-1.0) Aspartate Amino Transf (AST/SGOT) 12 U/L (15-37) Alanine Aminotransferase (ALT/SGPT) 12 U/L (16-63) Alkaline Phosphatase 27 U/L (46-116) Total Protein 6.1 g/dL (6.4-8.2) Albumin 3.0 g/dL (3.4-5.0) Albumin/Globulin Ratio 1.0 (1.0-1.7) Thyroid Stimulating Hormone (TSH) 1.067 uIU/mL (0.358-3.74) Free Thyroxine 1.07 ng/dL (0.76-1.46) Free Triiodothyronine (T3) pg/mL 1.68 pg/mL (2.18-3.98) Assessment/Plan Assessment/Plan IMP CHRONIC HYPOMAGNESEMIA WITHOUT ANY OTHER ELECTROLYTE ABNORMALITIES NOT ON ANY MEDS THAT SHOULD CAUSE THIS SUSPECT A VARIANT OF GITELMANS MILD MET ALKALOSIS VTACH CM PLAN REPLACE MAG NEEDED AVOID THIAZIDE DIURETICS CARDIOLOGY EVAL AND TX CHECK URINE LYTES WILL FOLLOW UPDATED FAMILY JAYME LU MD May 20, 2018 10:48
--- NOTE | 2018-05-20 14:15 | RAD ---
CT chest without contrast, CT abdomen pelvis without contrast. HISTORY: Weight loss CT CHEST: CT scan the chest was done without contrast. The thyroid is homogeneous. There is no mediastinal adenopathy or pleural effusion. 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 There is hypertrophic and degenerative change in the thoracic spine without a fracture. A bony destructive process is not identified. Patient's had previous bypass. There is mild infiltrate or atelectasis along the left diaphragm. There is a focal infiltrate in the medial right lower lobe, a mass is possible follow-up study following therapy would be of benefit to differentiate at irregular mass versus a focal infiltrate. There was no density in this location on the CT from May 2017. IMPRESSION: 1. Focal infiltrate in the medial right lower lobe, a mass would be possible follow-up study would be recommended. 2. Mild infiltrate or atelectasis along the left diaphragm. 3. No adenopathy. 4. No pleural effusion. End impression CT abdomen and pelvis CT scan of the abdomen and pelvis was done following the CT chest without contrast. A liver lesion is not identified. There is a gallstone in the gallbladder. Spleen and adrenal glands are normal. Pancreas appears normal. There is a cyst in the medial right kidney. There is no renal mass or hydronephrosis. There is no adenopathy or ascites. There is a 3 cm abdominal aortic aneurysm. There is moderate stool at the rectum. There is diverticulosis of the colon IMPRESSION: 1. Diverticulosis the colon without diverticulitis. There is some mild wall thickening of the sigmoid colon which could be diverticulitis although colonoscopy could be of benefit. 2. Moderate stool in the colon. 3. No bowel obstruction. 4. Small gallstone 5. Small abdominal aortic aneurysm. 6. No other abdominal or pelvic mass noted Electronically signed by: Dileep Weldon MD (05/20/2018 2:12 PM) [facility]
--- NOTE | 2018-05-20 14:20 | RAD ---
Whole-body bone scan. HISTORY: Staging prostate cancer Whole body bone scan was done using 26.1 mCi technetium 99 MDP. There is a CT chest abdomen pelvis for comparison. There is no prior bone scan. There is normal renal and bladder activity. There is a focus of activity in the posterior lateral left seventh rib. There is a small blastic or sclerotic focus at that location without an obvious old fracture. A blastic metastatic lesion is possible. No other abnormal activity is noted. There is slight activity along the posterior costovertebral junctions on the left at several levels which typically is related to trauma although hypertrophic change would be possible. CT showed slight sclerosis could be arthritis or old trauma or metastatic disease would be less likely. IMPRESSION: 1. Small focus of activity posterior left seventh rib corresponding to a blastic or sclerotic lesion on the CT, possible bony metastatic disease, an old injury would be possible. 2. Slight activity at the costovertebral junctions on the left metastatic disease would be unusual in this pattern or old trauma or arthritis can have this pattern. Electronically signed by: Dileep Weldon MD (05/20/2018 2:17 PM) [facility]
--- NOTE | 2018-05-20 14:23 | PDOC ---
PROGRESS NOTES Subjective Tolerating amiodarone and his appetite has returned today and he feels much better, he did have urinary frequency overnight though but no chest pain, no SOA Objective Afebrile General: NAD Heart: RRR, monitor sinus with some PVCs and some paced beats Lungs: CTA Abd: non tender Ext: no clubbing or cyanosis Vital Signs Vital Signs Date Time Temp Pulse Resp B/P (MAP) Pulse Ox O2 Delivery O2 Flow Rate FiO2 05/20/18 11:27 97.4 69 18 115/64 (81) 98 Room Air 97.4 I & O Intake and Output 05/20/18 07:00 Intake Total 1100 ml Output Total 925 ml Balance 175 ml Intake Oral 650 ml IV Total 450 ml Output Urine Total 925 ml Assessment and Plan arrhythmia - now on amiodarone, thyroid studies normal hypomagnesemia - replacing, Renal consulted weight loss - work up for malignancy Robert AZUL MD May 20, 2018 14:23
--- NOTE | 2018-05-20 15:46 | PDOC ---
PROGRESS NOTES Subjective Subjective Patient is in sinus rhythm now. Occasional PVC, no V. tach. The CT of chest abdomen and pelvis was done and it shows no apparent masses or tumor. Patient has diverticulosis without diverticulitis and a gallstone. The bone scan shows: 1. Small focus of activity posterior left seventh rib corresponding to a blastic or sclerotic lesion on the CT, possible bony metastatic disease, an old injury would be possible. 2. Slight activity at the costovertebral junctions on the left metastatic disease would be unusual in this pattern or old trauma or arthritis can have this pattern. Objective Objective Vital Signs Date Time Temp Pulse Resp B/P (MAP) Pulse Ox O2 Delivery O2 Flow Rate FiO2 05/20/18 11:27 97.4 69 18 115/64 (81) 98 Room Air 97.4 Intake and Output 05/20/18 07:00 Intake Total 1100 ml Output Total 925 ml Balance 175 ml Intake Oral 650 ml IV Total 450 ml Output Urine Total 925 ml Physical Exam Physical Exam No significant changes in cardiac exam Assessment Assessment Patient's rhythm appears to be doing better. He is off the IV amiodarone now and on the by mouth amiodarone will give him 400 mg by mouth twice a day for 7 days and then change him to a maintenance dose of 200 mg a day. In view of the findings of the bone scan I would suggest to consult an oncologist who tried to do fine if he has metastatic bony disease or not. Comment Review of Relevant I have reviewed the following items ron (where applicable) has been applied. Labs Laboratory Tests Test 05/19/18 09:50 05/19/18 09:59 05/19/18 12:33 05/20/18 04:45 White Blood Count 6.9 x10^3/uL (4.0-11.0) 6.8 x10^3/uL (4.0-11.0) Red Blood Count 4.09 x10^6/uL (4.30-5.70) 3.80 x10^6/uL (4.30-5.70) Hemoglobin 11.7 g/dL (13.0-17.5) 10.9 g/dL (13.0-17.5) Hematocrit 35.5 % (39.0-53.0) 32.7 % (39.0-53.0) Mean Corpuscular Volume 87 fL (79-100) 86 fL (79-100) Mean Corpuscular Hemoglobin 29 pg (25-35) 29 pg (25-35) Mean Corpuscular Hemoglobin Concent 33 g/dL (31-37) 34 g/dL (31-37) Red Cell Distribution Width 13.9 % (11.5-14.5) 14.2 % (11.5-14.5) Platelet Count 255 x10^3/uL (140-400) 219 x10^3/uL (140-400) Neutrophils (%) (Auto) 77 % (31-73) 70 % (31-73) Lymphocytes (%) (Auto) 12 % (24-48) 16 % (24-48) Monocytes (%) (Auto) 6 % (0-9) 7 % (0-9) Eosinophils (%) (Auto) 4 % (0-3) 6 % (0-3) Basophils (%) (Auto) 1 % (0-3) 1 % (0-3) Neutrophils # (Auto) 5.3 x10^3uL (1.8-7.7) 4.8 x10^3uL (1.8-7.7) Lymphocytes # (Auto) 0.8 x10^3/uL (1.0-4.8) 1.1 x10^3/uL (1.0-4.8) Monocytes # (Auto) 0.4 x10^3/uL (0.0-1.1) 0.5 x10^3/uL (0.0-1.1) Eosinophils # (Auto) 0.3 x10^3/uL (0.0-0.7) 0.4 x10^3/uL (0.0-0.7) Basophils # (Auto) 0.0 x10^3/uL (0.0-0.2) 0.1 x10^3/uL (0.0-0.2) Prothrombin Time 14.0 SEC (11.7-14.0) Prothromb Time International Ratio 1.1 (0.8-1.1) Sodium Level 146 mmol/L (136-145) 144 mmol/L (136-145) Potassium Level 4.0 mmol/L (3.5-5.1) 3.9 mmol/L (3.5-5.1) Chloride Level 108 mmol/L (98-107) 108 mmol/L (98-107) Carbon Dioxide Level 31 mmol/L (21-32) 28 mmol/L (21-32) Anion Gap 7 (6-14) 8 (6-14) Blood Urea Nitrogen 22 mg/dL (8-26) 21 mg/dL (8-26) Creatinine 1.3 mg/dL (0.7-1.3) 1.2 mg/dL (0.7-1.3) Estimated GFR (Cockcroft-Gault) 53.0 58.1 BUN/Creatinine Ratio 17 (6-20) 18 (6-20) Glucose Level 83 mg/dL (70-99) 85 mg/dL (70-99) Calcium Level 9.7 mg/dL (8.5-10.1) 9.2 mg/dL (8.5-10.1) Magnesium Level 1.7 mg/dL (1.8-2.4) 1.9 mg/dL (1.8-2.4) Total Bilirubin 0.3 mg/dL (0.2-1.0) 0.3 mg/dL (0.2-1.0) Aspartate Amino Transf (AST/SGOT) 15 U/L (15-37) 12 U/L (15-37) Alanine Aminotransferase (ALT/SGPT) 18 U/L (16-63) 12 U/L (16-63) Alkaline Phosphatase 38 U/L (46-116) 27 U/L (46-116) Creatine Kinase 24 U/L (39-308) Creatine Kinase MB (Mass) < 0.5 ng/mL (0.0-3.6) Creatine Kinase MB Relative Index % (0-4) Troponin I Quantitative < 0.017 ng/mL (0.000-0.055) [id number] Natriuretic Peptide 842 pg/mL (0-449) Total Protein 7.2 g/dL (6.4-8.2) 6.1 g/dL (6.4-8.2) Albumin 3.6 g/dL (3.4-5.0) 3.0 g/dL (3.4-5.0) Albumin/Globulin Ratio 1.0 (1.0-1.7) 1.0 (1.0-1.7) Glucose (Fingerstick) 89 mg/dL (70-99) Urine Collection Type Void Urine Color Yellow Urine Clarity Turbid Urine pH 7.5 Urine Specific [place] 1.020 Urine Protein Negative mg/dL (NEG-TRACE) Urine Glucose (UA) Negative mg/dL (NEG) Urine Ketones (Stick) Negative mg/dL (NEG) Urine Blood Negative (NEG) Urine Nitrite Negative (NEG) Urine Bilirubin Negative (NEG) Urine Urobilinogen Dipstick 1.0 mg/dL (0.2 mg/dL) Urine Leukocyte Esterase Negative (NEG) Urine RBC 0 /HPF (0-2) Urine WBC 0 /HPF (0-4) Urine Amorphous Sediment Present /HPF Urine Bacteria 0 /HPF (0-FEW) Thyroid Stimulating Hormone (TSH) 1.067 uIU/mL (0.358-3.74) Free Thyroxine 1.07 ng/dL (0.76-1.46) Free Triiodothyronine (T3) pg/mL 1.68 pg/mL (2.18-3.98) Laboratory Tests Test 05/20/18 04:45 White Blood Count 6.8 x10^3/uL (4.0-11.0) Red Blood Count 3.80 x10^6/uL (4.30-5.70) Hemoglobin 10.9 g/dL (13.0-17.5) Hematocrit 32.7 % (39.0-53.0) Mean Corpuscular Volume 86 fL (79-100) Mean Corpuscular Hemoglobin 29 pg (25-35) Mean Corpuscular Hemoglobin Concent 34 g/dL (31-37) Red Cell Distribution Width 14.2 % (11.5-14.5) Platelet Count 219 x10^3/uL (140-400) Neutrophils (%) (Auto) 70 % (31-73) Lymphocytes (%) (Auto) 16 % (24-48) Monocytes (%) (Auto) 7 % (0-9) Eosinophils (%) (Auto) 6 % (0-3) Basophils (%) (Auto) 1 % (0-3) Neutrophils # (Auto) 4.8 x10^3uL (1.8-7.7) Lymphocytes # (Auto) 1.1 x10^3/uL (1.0-4.8) Monocytes # (Auto) 0.5 x10^3/uL (0.0-1.1) Eosinophils # (Auto) 0.4 x10^3/uL (0.0-0.7) Basophils # (Auto) 0.1 x10^3/uL (0.0-0.2) Sodium Level 144 mmol/L (136-145) Potassium Level 3.9 mmol/L (3.5-5.1) Chloride Level 108 mmol/L (98-107) Carbon Dioxide Level 28 mmol/L (21-32) Anion Gap 8 (6-14) Blood Urea Nitrogen 21 mg/dL (8-26) Creatinine 1.2 mg/dL (0.7-1.3) Estimated GFR (Cockcroft-Gault) 58.1 BUN/Creatinine Ratio 18 (6-20) Glucose Level 85 mg/dL (70-99) Calcium Level 9.2 mg/dL (8.5-10.1) Magnesium Level 1.9 mg/dL (1.8-2.4) Total Bilirubin 0.3 mg/dL (0.2-1.0) Aspartate Amino Transf (AST/SGOT) 12 U/L (15-37) Alanine Aminotransferase (ALT/SGPT) 12 U/L (16-63) Alkaline Phosphatase 27 U/L (46-116) Total Protein 6.1 g/dL (6.4-8.2) Albumin 3.0 g/dL (3.4-5.0) Albumin/Globulin Ratio 1.0 (1.0-1.7) Thyroid Stimulating Hormone (TSH) 1.067 uIU/mL (0.358-3.74) Free Thyroxine 1.07 ng/dL (0.76-1.46) Free Triiodothyronine (T3) pg/mL 1.68 pg/mL (2.18-3.98) Medications Current Medications Magnesium Sulfate 50 ml @ 25 mls/hr 1X ONCE IV Last administered on 05/19/18at 11:00; Start 05/19/18 at 11:00; Stop 05/19/18 at 12:59; Status DC Amiodarone HCl 150 mg/Dextrose 103 ml @ 600 mls/hr 1X ONCE IV Last administered on 05/19/18at 13:49; Start 05/19/18 at 14:00; Stop 05/19/18 at 14:10 ; Status DC Amiodarone HCl 900 mg/Dextrose 518 ml @ 33.33 mls/ hr CONT PRN IV SEE I/O RECORD Last administered on 05/19/18at 13:49; Start 05/19/18 at 14:30; Stop 05/19 at 14:30; Status DC Amiodarone HCl 900 mg/Dextrose 518 ml @ 16.67 mls/ hr CONT PRN IV SEE I/O RECORD; Start 05/19/18 at 13:15; Stop 05/20/18 at 07:14; Status DC Aspirin (Ecotrin) 325 mg DAILY16 PO Last administered on 05/19/18at 17:33; Start 05/19/18 at 16:00 Atorvastatin Calcium (Lipitor) 20 mg DAILY16 PO ; Start 05/19/18 at 16:00; Stop 05/19/18 at 16:12; Status DC Acetaminophen (Tylenol) 500 mg QHS PO Last administered on 05/19/18at 20:39; Start 05/19/18 at 21:00 Magnesium Oxide (Magnesium Oxide) 400 mg BID PO Last administered on 05/20/18at 09:40; Start 05/19/18 at 21:00 Metformin HCl (Glucophage) 500 mg BIDWMEALS PO Last administered on 05/20/18at 09:39; Start 05/19/18 at 17:00; Stop 05/20/18 at 10:24; Status DC Multivitamins (Thera M Plus) 1 tab DAILY PO Last administered on 05/20/18at 09: 39; Start 05/19/18 at 17:00 Non-Formulary Medication ([melatonin] ) 10 mg QHS PO ; Start 05/19/18 at 21:00; Status UNV Magnesium Sulfate/ Dextrose 100 ml @ 100 mls/hr 1X ONCE IV ; Start 05/19/18 at 15:00; Stop 05/19/18 at 15:43; Status DC Diphenhydramine HCl (Benadryl) 25 mg QHS PO Last administered on 05/19/18at 20: 39; Start 05/19/18 at 21:00 Atorvastatin Calcium (Lipitor) 20 mg QHS PO Last administered on 05/19/18at 20: 39; Start 05/19/18 at 21:00 Amiodarone HCl (Cordarone) 400 mg BID PO Last administered on 05/20/18at 09:39; Start 05/20/18 at 09:00 Iohexol (Omnipaque 240 Mg/ml) 50 ml 1X ONCE PO Last administered on 05/20/18at 10:30; Start 05/20/18 at 10:30; Stop 05/20/18 at 10:31; Status DC Info (CONTRAST GIVEN -- Rx MONITORING) 1 each PRN DAILY PRN MC SEE COMMENTS; Start 05/20/18 at 10:30; Stop 05/22/18 at 10:29 Metformin HCl (Glucophage) 500 mg BIDWMEALS PO ; Start 05/22/18 at 08:00 Active Scripts Active Mag-Oxide (Magnesium Oxide) 400 Mg Tablet 400 Mg PO BID 30 Days Propafenone Hcl 150 Mg Tablet 150 Mg PO BID 30 Days Reported [melatonin] 10 Mg PO QHS Centrum Silver Tablet (Multivits-Min/Fa/Lycopene/Lut) 1 Each Tablet 1 Tab DAILY Acetadryl 500-25 Mg Caplet (Acetaminophen/Diphenhydramine) 1 Each Tablet 1 Tab HS Aspir-Marybeth (Aspirin) 325 Mg Tablet.dr 1 Tab PO DAILY16 Metformin Hcl 500 Mg Tablet 1 Tab BIDBFRMEAL Atorvastatin Calcium 20 Mg Tablet 1 Tab DAILY16 Vitals/I & O Vital Sign - Last 24 Hours 05/19/18 05/19/18 05/19/18 05/19/18 16:00 17:00 18:00 19:00 Pulse 80 84 80 78 B/P (MAP) 129/56 (80) 124/63 (83) 134/68 (90) 138/72 (94) 05/19/18 05/19/18 05/19/18 05/20/18 19:55 20:00 23:50 03:30 Temp 98.0 97.6 98.4 98.0 97.6 98.4 Pulse 80 72 66 Resp 16 14 16 B/P (MAP) 125/67 (86) 129/60 (83) 105/52 (69) Pulse Ox 97 99 99 O2 Delivery Room Air Room Air Room Air Room Air 05/20/18 05/20/18 05/20/18 05/20/18 07:35 08:00 08:33 09:39 Temp 97.5 97.5 Pulse 72 66 66 Resp 14 B/P (MAP) 105/50 (68) 133/59 (83) 133/59 Pulse Ox 97 O2 Delivery Room Air Room Air 05/20/18 11:27 Temp 97.4 97.4 Pulse 69 Resp 18 B/P (MAP) 115/64 (81) Pulse Ox 98 O2 Delivery Room Air Intake and Output 05/19/18 05/19/18 05/20/18 15:00 23:00 07:00 Intake Total 400 ml 700 ml Output Total 575 ml 350 ml Balance -175 ml 350 ml JESSE RAND MD May 20, 2018 15:45
[2018-05-20] MEDS: ASPIRIN ENTERIC COATED 325 MG TABLET.DR. PO SCH (16:35)
[2018-05-20] MEDS: diphenhydrAMINE HCL 25 MG CAPSULE PO SCH (21:16)
[2018-05-20] MEDS: ACETAMINOPHEN 500 MG TABLET PO SCH (21:16)
[2018-05-20] MEDS: ATORVASTATIN CALCIUM 20 MG TABLET PO SCH (21:16)
[2018-05-20 22:11] LABS: UR POTASSIUM 35.4 mmol/L (Not Estab.)
[2018-05-21 02:57] VITALS: BP 101/56
[2018-05-21 06:24] LABS: CALCIUM 9.5 mg/dL (8.5-10.1); CREATININE 1.1 mg/dL (0.7-1.3); GFR 64.2; MAGNESIUM 1.8 mg/dL (1.8-2.4); PHOSPHORUS 3.5 mg/dL (2.6-4.7); POTASSIUM 4.3 mmol/L (3.5-5.1)
[2018-05-21 06:57] VITALS: BP 112/61
--- NOTE | 2018-05-21 09:05 | PDOC ---
PROGRESS NOTES Subjective Subjective Patient feels well this am with complaints of urinary frequency. No cardiac events overnight. Objective Objective Vital Signs Date Time Temp Pulse Resp B/P (MAP) Pulse Ox O2 Delivery O2 Flow Rate FiO2 05/21/18 06:57 98.4 83 18 112/61 (78) 98 Room Air 98.4 Intake and Output 05/21/18 07:00 Intake Total 850 ml Output Total 2150 ml Balance -1300 ml Intake Oral 850 ml Output Urine Total 2150 ml # Voids 1 Physical Exam Physical Exam no significant change in cardiac exam Plan Plan of Care Continue amiodarone 400mg PO BID Recommend oncology consult based on bone scan Comment Review of Relevant I have reviewed the following items ron (where applicable) has been applied. Labs Laboratory Tests Test 05/19/18 09:50 05/19/18 09:59 05/19/18 12:33 05/20/18 04:45 White Blood Count 6.9 x10^3/uL (4.0-11.0) 6.8 x10^3/uL (4.0-11.0) Red Blood Count 4.09 x10^6/uL (4.30-5.70) 3.80 x10^6/uL (4.30-5.70) Hemoglobin 11.7 g/dL (13.0-17.5) 10.9 g/dL (13.0-17.5) Hematocrit 35.5 % (39.0-53.0) 32.7 % (39.0-53.0) Mean Corpuscular Volume 87 fL (79-100) 86 fL (79-100) Mean Corpuscular Hemoglobin 29 pg (25-35) 29 pg (25-35) Mean Corpuscular Hemoglobin Concent 33 g/dL (31-37) 34 g/dL (31-37) Red Cell Distribution Width 13.9 % (11.5-14.5) 14.2 % (11.5-14.5) Platelet Count 255 x10^3/uL (140-400) 219 x10^3/uL (140-400) Neutrophils (%) (Auto) 77 % (31-73) 70 % (31-73) Lymphocytes (%) (Auto) 12 % (24-48) 16 % (24-48) Monocytes (%) (Auto) 6 % (0-9) 7 % (0-9) Eosinophils (%) (Auto) 4 % (0-3) 6 % (0-3) Basophils (%) (Auto) 1 % (0-3) 1 % (0-3) Neutrophils # (Auto) 5.3 x10^3uL (1.8-7.7) 4.8 x10^3uL (1.8-7.7) Lymphocytes # (Auto) 0.8 x10^3/uL (1.0-4.8) 1.1 x10^3/uL (1.0-4.8) Monocytes # (Auto) 0.4 x10^3/uL (0.0-1.1) 0.5 x10^3/uL (0.0-1.1) Eosinophils # (Auto) 0.3 x10^3/uL (0.0-0.7) 0.4 x10^3/uL (0.0-0.7) Basophils # (Auto) 0.0 x10^3/uL (0.0-0.2) 0.1 x10^3/uL (0.0-0.2) Prothrombin Time 14.0 SEC (11.7-14.0) Prothromb Time International Ratio 1.1 (0.8-1.1) Sodium Level 146 mmol/L (136-145) 144 mmol/L (136-145) Potassium Level 4.0 mmol/L (3.5-5.1) 3.9 mmol/L (3.5-5.1) Chloride Level 108 mmol/L (98-107) 108 mmol/L (98-107) Carbon Dioxide Level 31 mmol/L (21-32) 28 mmol/L (21-32) Anion Gap 7 (6-14) 8 (6-14) Blood Urea Nitrogen 22 mg/dL (8-26) 21 mg/dL (8-26) Creatinine 1.3 mg/dL (0.7-1.3) 1.2 mg/dL (0.7-1.3) Estimated GFR (Cockcroft-Gault) 53.0 58.1 BUN/Creatinine Ratio 17 (6-20) 18 (6-20) Glucose Level 83 mg/dL (70-99) 85 mg/dL (70-99) Calcium Level 9.7 mg/dL (8.5-10.1) 9.2 mg/dL (8.5-10.1) Magnesium Level 1.7 mg/dL (1.8-2.4) 1.9 mg/dL (1.8-2.4) Total Bilirubin 0.3 mg/dL (0.2-1.0) 0.3 mg/dL (0.2-1.0) Aspartate Amino Transf (AST/SGOT) 15 U/L (15-37) 12 U/L (15-37) Alanine Aminotransferase (ALT/SGPT) 18 U/L (16-63) 12 U/L (16-63) Alkaline Phosphatase 38 U/L (46-116) 27 U/L (46-116) Creatine Kinase 24 U/L (39-308) Creatine Kinase MB (Mass) < 0.5 ng/mL (0.0-3.6) Creatine Kinase MB Relative Index % (0-4) Troponin I Quantitative < 0.017 ng/mL (0.000-0.055) [id number]-Type Natriuretic Peptide 842 pg/mL (0-449) Total Protein 7.2 g/dL (6.4-8.2) 6.1 g/dL (6.4-8.2) Albumin 3.6 g/dL (3.4-5.0) 3.0 g/dL (3.4-5.0) Albumin/Globulin Ratio 1.0 (1.0-1.7) 1.0 (1.0-1.7) Glucose (Fingerstick) 89 mg/dL (70-99) Urine Collection Type Void Urine Color Yellow Urine Clarity Turbid Urine pH 7.5 Urine Specific [place] 1.020 Urine Protein Negative mg/dL (NEG-TRACE) Urine Glucose (UA) Negative mg/dL (NEG) Urine Ketones (Stick) Negative mg/dL (NEG) Urine Blood Negative (NEG) Urine Nitrite Negative (NEG) Urine Bilirubin Negative (NEG) Urine Urobilinogen Dipstick 1.0 mg/dL (0.2 mg/dL) Urine Leukocyte Esterase Negative (NEG) Urine RBC 0 /HPF (0-2) Urine WBC 0 /HPF (0-4) Urine Amorphous Sediment Present /HPF Urine Bacteria 0 /HPF (0-FEW) Thyroid Stimulating Hormone (TSH) 1.067 uIU/mL (0.358-3.74) Free Thyroxine 1.07 ng/dL (0.76-1.46) Free Triiodothyronine (T3) pg/mL 1.68 pg/mL (2.18-3.98) Test 05/20/18 11:35 05/21/18 05:30 Urine Sodium 122 mmol/L (Not Estab.) Urine Potassium 35.4 mmol/L (Not Estab.) Urine Chloride 96 mmol/L (Not Estab.) Sodium Level 144 mmol/L (136-145) Potassium Level 4.3 mmol/L (3.5-5.1) Chloride Level 107 mmol/L (98-107) Carbon Dioxide Level 29 mmol/L (21-32) Anion Gap 8 (6-14) Blood Urea Nitrogen 16 mg/dL (8-26) Creatinine 1.1 mg/dL (0.7-1.3) Estimated GFR (Cockcroft-Gault) 64.2 Glucose Level 89 mg/dL (70-99) Calcium Level 9.5 mg/dL (8.5-10.1) Phosphorus Level 3.5 mg/dL (2.6-4.7) Magnesium Level 1.8 mg/dL (1.8-2.4) Laboratory Tests Test 05/20/18 11:35 05/21/18 05:30 Urine Sodium 122 mmol/L (Not Estab.) Urine Potassium 35.4 mmol/L (Not Estab.) Urine Chloride 96 mmol/L (Not Estab.) Sodium Level 144 mmol/L (136-145) Potassium Level 4.3 mmol/L (3.5-5.1) Chloride Level 107 mmol/L (98-107) Carbon Dioxide Level 29 mmol/L (21-32) Anion Gap 8 (6-14) Blood Urea Nitrogen 16 mg/dL (8-26) Creatinine 1.1 mg/dL (0.7-1.3) Estimated GFR (Cockcroft-Gault) 64.2 Glucose Level 89 mg/dL (70-99) Calcium Level 9.5 mg/dL (8.5-10.1) Phosphorus Level 3.5 mg/dL (2.6-4.7) Magnesium Level 1.8 mg/dL (1.8-2.4) Medications Current Medications Magnesium Sulfate 50 ml @ 25 mls/hr 1X ONCE IV Last administered on 05/19/18at 11:00; Start 05/19/18 at 11:00; Stop 05/19/18 at 12:59; Status DC Amiodarone HCl 150 mg/Dextrose 103 ml @ 600 mls/hr 1X ONCE IV Last administered on 05/19/18at 13:49; Start 05/19/18 at 14:00; Stop 05/19/18 at 14:10 ; Status DC Amiodarone HCl 900 mg/Dextrose 518 ml @ 33.33 mls/ hr CONT PRN IV SEE I/O RECORD Last administered on 05/19/18at 13:49; Start 05/19/18 at 14:30; Stop 05/19 at 14:30; Status DC Amiodarone HCl 900 mg/Dextrose 518 ml @ 16.67 mls/ hr CONT PRN IV SEE I/O RECORD; Start 05/19/18 at 13:15; Stop 05/20/18 at 07:14; Status DC Aspirin (Ecotrin) 325 mg DAILY16 PO Last administered on 05/20/18at 16:35; Start 05/19/18 at 16:00 Atorvastatin Calcium (Lipitor) 20 mg DAILY16 PO ; Start 05/19/18 at 16:00; Stop 05/19/18 at 16:12; Status DC Acetaminophen (Tylenol) 500 mg QHS PO Last administered on 05/20/18at 21:16; Start 05/19/18 at 21:00 Magnesium Oxide (Magnesium Oxide) 400 mg BID PO Last administered on 05/20/18at 21:17; Start 05/19/18 at 21:00 Metformin HCl (Glucophage) 500 mg BIDWMEALS PO Last administered on 05/20/18at 09:39; Start 05/19/18 at 17:00; Stop 05/20/18 at 10:24; Status DC Multivitamins (Thera M Plus) 1 tab DAILY PO Last administered on 05/20/18at 09: 39; Start 05/19/18 at 17:00 Non-Formulary Medication ([melatonin] ) 10 mg QHS PO ; Start 05/19/18 at 21:00; Status UNV Magnesium Sulfate/ Dextrose 100 ml @ 100 mls/hr 1X ONCE IV ; Start 05/19/18 at 15:00; Stop 05/19/18 at 15:43; Status DC Diphenhydramine HCl (Benadryl) 25 mg QHS PO Last administered on 05/20/18at 21: 16; Start 05/19/18 at 21:00 Atorvastatin Calcium (Lipitor) 20 mg QHS PO Last administered on 05/20/18at 21: 16; Start 05/19/18 at 21:00 Amiodarone HCl (Cordarone) 400 mg BID PO Last administered on 05/20/18at 21:16; Start 05/20/18 at 09:00 Iohexol (Omnipaque 240 Mg/ml) 50 ml 1X ONCE PO Last administered on 05/20/18at 10:30; Start 05/20/18 at 10:30; Stop 05/20/18 at 10:31; Status DC Info (CONTRAST GIVEN -- Rx MONITORING) 1 each PRN DAILY PRN MC SEE COMMENTS; Start 05/20/18 at 10:30; Stop 05/22/18 at 10:29 Metformin HCl (Glucophage) 500 mg BIDWMEALS PO ; Start 05/22/18 at 08:00 Active Scripts Active Mag-Oxide (Magnesium Oxide) 400 Mg Tablet 400 Mg PO BID 30 Days Propafenone Hcl 150 Mg Tablet 150 Mg PO BID 30 Days Reported [melatonin] 10 Mg PO QHS Centrum Silver Tablet (Multivits-Min/Fa/Lycopene/Lut) 1 Each Tablet 1 Tab DAILY Acetadryl 500-25 Mg Caplet (Acetaminophen/Diphenhydramine) 1 Each Tablet 1 Tab HS Aspir-Marybeth (Aspirin) 325 Mg Tablet.dr 1 Tab PO DAILY16 Metformin Hcl 500 Mg Tablet 1 Tab BIDBFRMEAL Atorvastatin Calcium 20 Mg Tablet 1 Tab DAILY16 Vitals/I & O Vital Sign - Last 24 Hours 05/20/18 05/20/18 05/20/18 05/20/18 09:39 11:27 15:46 19:55 Temp 97.4 97.4 99.0 97.4 97.4 99.0 Pulse 66 69 82 80 Resp 18 16 16 B/P (MAP) 133/59 115/64 (81) 129/63 (85) 110/58 (75) Pulse Ox 98 98 97 O2 Delivery Room Air Room Air Room Air 05/20/18 05/20/18 05/20/18 05/21/18 20:00 21:16 23:00 02:57 Temp 98.7 98.3 98.7 98.3 Pulse 80 72 76 Resp 16 18 B/P (MAP) 110/58 118/68 (85) 101/56 (71) Pulse Ox 98 95 O2 Delivery Room Air Room Air Room Air 05/21/18 06:57 Temp 98.4 98.4 Pulse 83 Resp 18 B/P (MAP) 112/61 (78) Pulse Ox 98 O2 Delivery Room Air Intake and Output 05/20/18 05/20/18 05/21/18 15:00 23:00 07:00 Intake Total 200 ml 400 ml 250 ml Output Total 600 ml 950 ml 600 ml Balance -400 ml -550 ml -350 ml JESSE RAND MD May 21, 2018 09:05
[2018-05-21] MEDS: MULTIVITAMIN with MINERAL TABLET. PO SCH (09:20)
[2018-05-21] MEDS: AMIODARONE HCL 200 MG TABLET. PO SCH ×2 (09:20→20:02)
[2018-05-21] MEDS: MAGNESIUM OXIDE 400 MG TABLET PO SCH ×2 (09:20→20:02)
--- NOTE | 2018-05-21 09:26 | PDOC ---
PROGRESS NOTES Subjective Subjective Patient feeling better. Patient's main complaint is frequent urination at night. CT without evidence of primary cancer. Bone scan with possible bone lesion vs Old injury. Patient rhythm much better on amiodarone. Objective Objective Vital Signs Date Time Temp Pulse Resp B/P (MAP) Pulse Ox O2 Delivery O2 Flow Rate FiO2 05/21/18 08:00 Room Air 05/21/18 06:57 98.4 83 18 112/61 (78) 98 98.4 Intake and Output 05/21/18 07:00 Intake Total 850 ml Output Total 2150 ml Balance -1300 ml Intake Oral 850 ml Output Urine Total 2150 ml # Voids 1 Physical Exam Abdomen: Normal bowel sounds Heart: Regular rate Extremities: No edema General: Alert Lungs: Clear to auscultation Assessment Assessment 1. Ventricular tachycardia, cardiac arrhythmia. 2. Orthostatic hypotension. 3. Coronary artery disease. 4. Hypomagnesemia. 5. Hx of weight loss but stable weight last 6 months 6. Questionable bone lesion left 7th rib 7. Normal PSA 03/2018 PAST MEDICAL HISTORY: Significant for: 1. Coronary artery disease with history of coronary artery bypass graft and NC. The patient has also had multiple stents placed. 2. Type 2 diabetes. 3. Hypertension. 4. High cholesterol. 5. Spinal stenosis of L-spine. 6. Sick sinus syndrome with pacer and ICD. 7. History of SVT. 8. BPH. 9. History of prostate cancer. 10. History of left eye melanoma. 11. Chronic kidney disease stage 3. Plan Plan of Care Add Flomax Get ONC opinion Increase activity Continue PO amiodarone Home in AM if stable Comment Review of Relevant I have reviewed the following items ron (where applicable) has been applied. Labs Laboratory Tests Test 05/19/18 09:50 05/19/18 09:59 05/19/18 12:33 05/20/18 04:45 White Blood Count 6.9 x10^3/uL (4.0-11.0) 6.8 x10^3/uL (4.0-11.0) Red Blood Count 4.09 x10^6/uL (4.30-5.70) 3.80 x10^6/uL (4.30-5.70) Hemoglobin 11.7 g/dL (13.0-17.5) 10.9 g/dL (13.0-17.5) Hematocrit 35.5 % (39.0-53.0) 32.7 % (39.0-53.0) Mean Corpuscular Volume 87 fL (79-100) 86 fL (79-100) Mean Corpuscular Hemoglobin 29 pg (25-35) 29 pg (25-35) Mean Corpuscular Hemoglobin Concent 33 g/dL (31-37) 34 g/dL (31-37) Red Cell Distribution Width 13.9 % (11.5-14.5) 14.2 % (11.5-14.5) Platelet Count 255 x10^3/uL (140-400) 219 x10^3/uL (140-400) Neutrophils (%) (Auto) 77 % (31-73) 70 % (31-73) Lymphocytes (%) (Auto) 12 % (24-48) 16 % (24-48) Monocytes (%) (Auto) 6 % (0-9) 7 % (0-9) Eosinophils (%) (Auto) 4 % (0-3) 6 % (0-3) Basophils (%) (Auto) 1 % (0-3) 1 % (0-3) Neutrophils # (Auto) 5.3 x10^3uL (1.8-7.7) 4.8 x10^3uL (1.8-7.7) Lymphocytes # (Auto) 0.8 x10^3/uL (1.0-4.8) 1.1 x10^3/uL (1.0-4.8) Monocytes # (Auto) 0.4 x10^3/uL (0.0-1.1) 0.5 x10^3/uL (0.0-1.1) Eosinophils # (Auto) 0.3 x10^3/uL (0.0-0.7) 0.4 x10^3/uL (0.0-0.7) Basophils # (Auto) 0.0 x10^3/uL (0.0-0.2) 0.1 x10^3/uL (0.0-0.2) Prothrombin Time 14.0 SEC (11.7-14.0) Prothromb Time International Ratio 1.1 (0.8-1.1) Sodium Level 146 mmol/L (136-145) 144 mmol/L (136-145) Potassium Level 4.0 mmol/L (3.5-5.1) 3.9 mmol/L (3.5-5.1) Chloride Level 108 mmol/L (98-107) 108 mmol/L (98-107) Carbon Dioxide Level 31 mmol/L (21-32) 28 mmol/L (21-32) Anion Gap 7 (6-14) 8 (6-14) Blood Urea Nitrogen 22 mg/dL (8-26) 21 mg/dL (8-26) Creatinine 1.3 mg/dL (0.7-1.3) 1.2 mg/dL (0.7-1.3) Estimated GFR (Cockcroft-Gault) 53.0 58.1 BUN/Creatinine Ratio 17 (6-20) 18 (6-20) Glucose Level 83 mg/dL (70-99) 85 mg/dL (70-99) Calcium Level 9.7 mg/dL (8.5-10.1) 9.2 mg/dL (8.5-10.1) Magnesium Level 1.7 mg/dL (1.8-2.4) 1.9 mg/dL (1.8-2.4) Total Bilirubin 0.3 mg/dL (0.2-1.0) 0.3 mg/dL (0.2-1.0) Aspartate Amino Transf (AST/SGOT) 15 U/L (15-37) 12 U/L (15-37) Alanine Aminotransferase (ALT/SGPT) 18 U/L (16-63) 12 U/L (16-63) Alkaline Phosphatase 38 U/L (46-116) 27 U/L (46-116) Creatine Kinase 24 U/L (39-308) Creatine Kinase MB (Mass) < 0.5 ng/mL (0.0-3.6) Creatine Kinase MB Relative Index % (0-4) Troponin I Quantitative < 0.017 ng/mL (0.000-0.055) PF-Jeo-L-Type Natriuretic Peptide 842 pg/mL (0-449) Total Protein 7.2 g/dL (6.4-8.2) 6.1 g/dL (6.4-8.2) Albumin 3.6 g/dL (3.4-5.0) 3.0 g/dL (3.4-5.0) Albumin/Globulin Ratio 1.0 (1.0-1.7) 1.0 (1.0-1.7) Glucose (Fingerstick) 89 mg/dL (70-99) Urine Collection Type Void Urine Color Yellow Urine Clarity Turbid Urine pH 7.5 Urine Specific [place] 1.020 Urine Protein Negative mg/dL (NEG-TRACE) Urine Glucose (UA) Negative mg/dL (NEG) Urine Ketones (Stick) Negative mg/dL (NEG) Urine Blood Negative (NEG) Urine Nitrite Negative (NEG) Urine Bilirubin Negative (NEG) Urine Urobilinogen Dipstick 1.0 mg/dL (0.2 mg/dL) Urine Leukocyte Esterase Negative (NEG) Urine RBC 0 /HPF (0-2) Urine WBC 0 /HPF (0-4) Urine Amorphous Sediment Present /HPF Urine Bacteria 0 /HPF (0-FEW) Thyroid Stimulating Hormone (TSH) 1.067 uIU/mL (0.358-3.74) Free Thyroxine 1.07 ng/dL (0.76-1.46) Free Triiodothyronine (T3) pg/mL 1.68 pg/mL (2.18-3.98) Test 05/20/18 11:35 05/21/18 05:30 Urine Sodium 122 mmol/L (Not Estab.) Urine Potassium 35.4 mmol/L (Not Estab.) Urine Chloride 96 mmol/L (Not Estab.) Sodium Level 144 mmol/L (136-145) Potassium Level 4.3 mmol/L (3.5-5.1) Chloride Level 107 mmol/L (98-107) Carbon Dioxide Level 29 mmol/L (21-32) Anion Gap 8 (6-14) Blood Urea Nitrogen 16 mg/dL (8-26) Creatinine 1.1 mg/dL (0.7-1.3) Estimated GFR (Cockcroft-Gault) 64.2 Glucose Level 89 mg/dL (70-99) Calcium Level 9.5 mg/dL (8.5-10.1) Phosphorus Level 3.5 mg/dL (2.6-4.7) Magnesium Level 1.8 mg/dL (1.8-2.4) Laboratory Tests Test 05/20/18 11:35 05/21/18 05:30 Urine Sodium 122 mmol/L (Not Estab.) Urine Potassium 35.4 mmol/L (Not Estab.) Urine Chloride 96 mmol/L (Not Estab.) Sodium Level 144 mmol/L (136-145) Potassium Level 4.3 mmol/L (3.5-5.1) Chloride Level 107 mmol/L (98-107) Carbon Dioxide Level 29 mmol/L (21-32) Anion Gap 8 (6-14) Blood Urea Nitrogen 16 mg/dL (8-26) Creatinine 1.1 mg/dL (0.7-1.3) Estimated GFR (Cockcroft-Gault) 64.2 Glucose Level 89 mg/dL (70-99) Calcium Level 9.5 mg/dL (8.5-10.1) Phosphorus Level 3.5 mg/dL (2.6-4.7) Magnesium Level 1.8 mg/dL (1.8-2.4) Medications Current Medications Magnesium Sulfate 50 ml @ 25 mls/hr 1X ONCE IV Last administered on 05/19/18at 11:00; Start 05/19/18 at 11:00; Stop 05/19/18 at 12:59; Status DC Amiodarone HCl 150 mg/Dextrose 103 ml @ 600 mls/hr 1X ONCE IV Last administered on 05/19/18at 13:49; Start 05/19/18 at 14:00; Stop 05/19/18 at 14:10 ; Status DC Amiodarone HCl 900 mg/Dextrose 518 ml @ 33.33 mls/ hr CONT PRN IV SEE I/O RECORD Last administered on 05/19/18at 13:49; Start 05/19/18 at 14:30; Stop 05/19 at 14:30; Status DC Amiodarone HCl 900 mg/Dextrose 518 ml @ 16.67 mls/ hr CONT PRN IV SEE I/O RECORD; Start 05/19/18 at 13:15; Stop 05/20/18 at 07:14; Status DC Aspirin (Ecotrin) 325 mg DAILY16 PO Last administered on 05/20/18at 16:35; Start 05/19/18 at 16:00 Atorvastatin Calcium (Lipitor) 20 mg DAILY16 PO ; Start 05/19/18 at 16:00; Stop 05/19/18 at 16:12; Status DC Acetaminophen (Tylenol) 500 mg QHS PO Last administered on 05/20/18 21:16; Start 05/19/18 at 21:00 Magnesium Oxide (Magnesium Oxide) 400 mg BID PO Last administered on 05/20/18at 21:17; Start 05/19/18 at 21:00 Metformin HCl (Glucophage) 500 mg BIDWMEALS PO Last administered on 05/20/18 09:39; Start 05/19/18 at 17:00; Stop 05/20/18 at 10:24; Status DC Multivitamins (Thera M Plus) 1 tab DAILY PO Last administered on 05/20/18at 09: 39; Start 05/19/18 at 17:00 Non-Formulary Medication ([melatonin] ) 10 mg QHS PO ; Start 05/19/18 at 21:00; Status UNV Magnesium Sulfate/ Dextrose 100 ml @ 100 mls/hr 1X ONCE IV ; Start 05/19/18 at 15:00; Stop 05/19/18 at 15:43; Status DC Diphenhydramine HCl (Benadryl) 25 mg QHS PO Last administered on 05/20/18at 21: 16; Start 05/19/18 at 21:00 Atorvastatin Calcium (Lipitor) 20 mg QHS PO Last administered on 05/20/18at 21: 16; Start 05/19/18 at 21:00 Amiodarone HCl (Cordarone) 400 mg BID PO Last administered on 05/20/18at 21:16; Start 05/20/18 at 09:00 Iohexol (Omnipaque 240 Mg/ml) 50 ml 1X ONCE PO Last administered on 05/20/18at 10:30; Start 05/20/18 at 10:30; Stop 05/20/18 at 10:31; Status DC Info (CONTRAST GIVEN -- Rx MONITORING) 1 each PRN DAILY PRN MC SEE COMMENTS; Start 05/20/18 at 10:30; Stop 05/22/18 at 10:29 Metformin HCl (Glucophage) 500 mg BIDWMEALS PO ; Start 05/22/18 at 08:00 Active Scripts Active Mag-Oxide (Magnesium Oxide) 400 Mg Tablet 400 Mg PO BID 30 Days Propafenone Hcl 150 Mg Tablet 150 Mg PO BID 30 Days Reported [melatonin] 10 Mg PO QHS Centrum Silver Tablet (Multivits-Min/Fa/Lycopene/Lut) 1 Each Tablet 1 Tab DAILY Acetadryl 500-25 Mg Caplet (Acetaminophen/Diphenhydramine) 1 Each Tablet 1 Tab HS Aspir-Marybeth (Aspirin) 325 Mg Tablet. 1 Tab PO DAILY16 Metformin Hcl 500 Mg Tablet 1 Tab BIDBFRMEAL Atorvastatin Calcium 20 Mg Tablet 1 Tab DAILY16 Vitals/I & O Vital Sign - Last 24 Hours 05/20/18 05/20/18 05/20/18 05/20/18 09:39 11:27 15:46 19:55 Temp 97.4 97.4 99.0 97.4 97.4 99.0 Pulse 66 69 82 80 Resp 18 16 16 B/P (MAP) 133/59 115/64 (81) 129/63 (85) 110/58 (75) Pulse Ox 98 98 97 O2 Delivery Room Air Room Air Room Air 05/20/18 05/20/18 05/20/18 05/21/18 20:00 21:16 23:00 02:57 Temp 98.7 98.3 98.7 98.3 Pulse 80 72 76 Resp 16 18 B/P (MAP) 110/58 118/68 (85) 101/56 (71) Pulse Ox 98 95 O2 Delivery Room Air Room Air Room Air 05/21/18 05/21/18 06:57 08:00 Temp 98.4 98.4 Pulse 83 Resp 18 B/P (MAP) 112/61 (78) Pulse Ox 98 O2 Delivery Room Air Room Air Intake and Output 05/20/18 05/20/18 05/21/18 15:00 23:00 07:00 Intake Total 200 ml 400 ml 250 ml Output Total 600 ml 950 ml 600 ml Balance -400 ml -550 ml -350 ml ADRIAN JOHNSON MD May 21, 2018 09:26
[2018-05-21 10:14] VITALS: BP 136/66
--- NOTE | 2018-05-21 11:13 | PDOC ---
SUBJECTIVE ROS Asked to see for hypomagnesemia Patient denies current diarrhea nausea vomiting OBJECTIVE Vital Signs Vital Signs Date Time Temp Pulse Resp B/P (MAP) Pulse Ox O2 Delivery O2 Flow Rate FiO2 05/21/18 10:14 97.4 82 20 136/66 (89) 99 Room Air 97.4 I & 0 Intake and Output 05/21/18 07:00 Intake Total 850 ml Output Total 2150 ml Balance -1300 ml Intake Oral 850 ml Output Urine Total 2150 ml # Voids 1 PHYSICAL EXAM Physical Exam General Appearance: Awake: Alert Oriented x 3 Neck: No JVD or JVP Chest: CTA Silvano Heart: S1 S2 Abdomen - Soft NTND Extremities - No Edema DIAGNOSIS/ASSESSMENT Assessment & Plan Hypomagnesemia: Without any obvious etiology. Possible contribution from metformin, diabetes cannot be ruled out. Last magnesium supplementation was about 2 days ago. This was verified with the nurse. At this point of time 24- hour urine for magnesium may not be very accurate to estimate urinary losses. However we will proceed with same for completion. This was not orderable in our EMR and hence a miscellaneous ordered for the same has been placed If magnesium excretion is noted to be elevated he will need more magnesium supplements orally COMMENT/RELEVANT DATA Meds Current Medications Medications (Trade) Dose Ordered Sig/Deidra Start Time Stop Time Status Last Admin Dose Admin Acetaminophen (Tylenol) 500 mg QHS 05/19/18 21:00 05/20/18 21:16 500 MG Amiodarone HCl (Cordarone) 400 mg BID 05/20/18 09:00 05/21/18 09:20 400 MG Amiodarone HCl 150 mg/Dextrose 103 ml @ 600 mls/hr 1X ONCE 05/19/18 14:00 05/19/18 14:10 DC 05/19/18 13:49 600 MLS/HR Amiodarone HCl 900 mg/Dextrose 518 ml @ 16.67 mls/ hr CONT PRN 05/19/18 13:15 05/20/18 07:14 DC Aspirin (Ecotrin) 325 mg DAILY16 05/19/18 16:00 05/20/18 16:35 325 MG Atorvastatin Calcium (Lipitor) 20 mg QHS 05/19/18 21:00 05/20/18 21:16 20 MG Diphenhydramine HCl (Benadryl) 25 mg QHS 05/19/18 21:00 05/20/18 21:16 25 MG Info (CONTRAST GIVEN -- Rx MONITORING) 1 each PRN DAILY PRN 05/20/18 10:30 05/22/18 10:29 Iohexol (Omnipaque 240 Mg/ml) 50 ml 1X ONCE 05/20/18 10:30 05/20/18 10:31 DC 05/20/18 10:30 50 ML Magnesium Oxide (Magnesium Oxide) 400 mg BID 05/19/18 21:00 05/21/18 09:20 400 MG Magnesium Sulfate 50 ml @ 25 mls/hr 1X ONCE 05/19/18 11:00 05/19/18 12:59 DC 05/19/18 11:00 25 MLS/HR Magnesium Sulfate/ Dextrose 100 ml @ 100 mls/hr 1X ONCE 05/19/18 15:00 05/19/18 15:43 DC Metformin HCl (Glucophage) 500 mg BIDWMEALS 05/22/18 08:00 Multivitamins (Thera M Plus) 1 tab DAILY 05/19/18 17:00 05/21/18 09:20 1 TAB Non-Formulary Medication ([melatonin] ) 10 mg QHS 05/19/18 21:00 UNV Tamsulosin HCl (Flomax) 0.4 mg QHS 05/21/18 21:00 Lab Laboratory Tests Test 05/20/18 11:35 05/21/18 05:30 Urine Sodium 122 mmol/L (Not Estab.) Urine Potassium 35.4 mmol/L (Not Estab.) Urine Chloride 96 mmol/L (Not Estab.) Sodium Level 144 mmol/L (136-145) Potassium Level 4.3 mmol/L (3.5-5.1) Chloride Level 107 mmol/L (98-107) Carbon Dioxide Level 29 mmol/L (21-32) Anion Gap 8 (6-14) Blood Urea Nitrogen 16 mg/dL (8-26) Creatinine 1.1 mg/dL (0.7-1.3) Estimated GFR (Cockcroft-Gault) 64.2 Glucose Level 89 mg/dL (70-99) Calcium Level 9.5 mg/dL (8.5-10.1) Phosphorus Level 3.5 mg/dL (2.6-4.7) Magnesium Level 1.8 mg/dL (1.8-2.4) Results All relevant outside records, renal labs, imaging studies, telemetry/EKG's were reviewed. CONSUELO CHAIREZ MD May 21, 2018 11:12
[2018-05-21 14:23] VITALS: BP 119/73
[2018-05-21] MEDS: ASPIRIN ENTERIC COATED 325 MG TABLET.DR. PO SCH (16:59)
[2018-05-21 18:16] VITALS: BP 147/68
[2018-05-21] MEDS: ATORVASTATIN CALCIUM 20 MG TABLET PO SCH (20:03)
[2018-05-21] MEDS: ACETAMINOPHEN 500 MG TABLET PO SCH (20:03)
[2018-05-21] MEDS: diphenhydrAMINE HCL 25 MG CAPSULE PO SCH (20:03)
[2018-05-21] MEDS ORDERED: TAMSULOSIN 0.4 MG CAP.ER.24H. PO SCH (21:00)
[2018-05-21 22:30] VITALS: BP 127/66
[2018-05-22] VITALS (18 sets, daily range): BP systolic 93–146; BP diastolic 53–83
[2018-05-22] MEDS: metFORMIN 500 MG TABLET PO SCH ×2 (08:00→17:00)
[2018-05-22] MEDS: MULTIVITAMIN with MINERAL TABLET. PO SCH (09:32)
[2018-05-22] MEDS: MAGNESIUM OXIDE 400 MG TABLET PO SCH (09:32)
[2018-05-22] MEDS: ASPIRIN ENTERIC COATED 325 MG TABLET.DR. PO SCH (09:32)
[2018-05-22] MEDS: AMIODARONE HCL 200 MG TABLET. PO SCH (09:33)
--- NOTE | 2018-05-22 10:07 | PDOC ---
SUBJECTIVE ROS Follow-up for hypomagnesemia Patient denies new complaints OBJECTIVE Vital Signs Vital Signs Date Time Temp Pulse Resp B/P (MAP) Pulse Ox O2 Delivery O2 Flow Rate FiO2 05/22/18 09:33 71 93/53 05/22/18 07:33 97.5 16 98 Room Air 97.5 I & 0 Intake and Output 05/22/18 07:00 Intake Total 0 ml Output Total 1925 ml Balance -1925 ml Intake Oral 0 ml Output Urine Total 1925 ml # Voids 1 PHYSICAL EXAM Physical Exam General Appearance: Awake: Alert Oriented x 3 Neck: No JVD or JVP Chest: CTA [place] Heart: S1 S2 Abdomen - Soft NTND Extremities - No Edema DIAGNOSIS/ASSESSMENT Assessment & Plan Hypomagnesemia: Without any obvious etiology. Possible contribution from diabetes associated renal losses cannot be ruled out. Magnesium levels appear to have held up pretty well with oral supplementation alone as ongoing. These may need to be increased as an outpatient. I discussed the option of IV magnesium infusions if oral pills do not work. He denies diarrhea which may explain GI losses Lowish blood pressure: Will be deferred to Dr. Rodas and Dr. Meng COMMENT/RELEVANT DATA Meds Current Medications Medications (Trade) Dose Ordered Sig/Deidra Start Time Stop Time Status Last Admin Dose Admin Acetaminophen (Tylenol) 500 mg QHS 05/19/18 21:00 05/21/18 20:03 500 MG Amiodarone HCl (Cordarone) 400 mg BID 05/20/18 09:00 05/22/18 09:33 400 MG Amiodarone HCl 150 mg/Dextrose 103 ml @ 600 mls/hr 1X ONCE 05/19/18 14:00 05/19/18 14:10 DC 05/19/18 13:49 600 MLS/HR Amiodarone HCl 900 mg/Dextrose 518 ml @ 16.67 mls/ hr CONT PRN 05/19/18 13:15 05/20/18 07:14 DC Aspirin (Ecotrin) 325 mg DAILY16 05/19/18 16:00 05/22/18 09:32 325 MG Atorvastatin Calcium (Lipitor) 20 mg QHS 05/19/18 21:00 05/21/18 20:03 20 MG Diphenhydramine HCl (Benadryl) 25 mg QHS 05/19/18 21:00 05/21/18 20:03 25 MG Info (CONTRAST GIVEN -- Rx MONITORING) 1 each PRN DAILY PRN 05/20/18 10:30 05/22/18 10:29 Iohexol (Omnipaque 240 Mg/ml) 50 ml 1X ONCE 05/20/18 10:30 05/20/18 10:31 DC 05/20/18 10:30 50 ML Magnesium Oxide (Magnesium Oxide) 400 mg BID 05/19/18 21:00 05/22/18 09:32 400 MG Magnesium Sulfate 50 ml @ 25 mls/hr 1X ONCE 05/19/18 11:00 05/19/18 12:59 DC 05/19/18 11:00 25 MLS/HR Magnesium Sulfate/ Dextrose 100 ml @ 100 mls/hr 1X ONCE 05/19/18 15:00 05/19/18 15:43 DC Metformin HCl (Glucophage) 500 mg BIDWMEALS 05/22/18 08:00 Multivitamins (Thera M Plus) 1 tab DAILY 05/19/18 17:00 05/22/18 09:32 1 TAB Non-Formulary Medication ([melatonin] ) 10 mg QHS 05/19/18 21:00 UNV Tamsulosin HCl (Flomax) 0.4 mg QHS 05/21/18 21:00 05/21/18 20:03 0.4 MG Results All relevant outside records, renal labs, imaging studies, telemetry/EKG's were reviewed. CONSUELO CHAIREZ MD May 22, 2018 10:07
--- NOTE | 2018-05-22 10:45 | CONS ---
DATE OF CONSULTATION: 05/21/2018 MEDICAL ONCOLOGY CONSULTATION REPORT REQUESTING PHYSICIAN: Dr. Himanshu Josue. REASON FOR CONSULTATION: Left seventh rib lesion, concerning for metastatic disease. 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 He has history of weight loss of about 50 pounds between 5502-4870. He reports that his weight then stabilized. He also has a history of long-standing heart disease and he has an AICD in place and he felt that he was going to have a spell where it might fire again, and hence, he came into the hospital. He underwent further evaluation with Cardiology. He was advised to continue amiodarone. The patient underwent a CT scan of the chest, abdomen and pelvis on 05/20/2018 to evaluate weight loss. There were no malignancies noted. There was focal infiltrate in the medial right lower lobe, but a possible mass cannot be ruled out in that region and a followup scan was recommended. He underwent a bone scan on 05/20/2018, which revealed small focus of activity in posterior left seventh rib, corresponding to a blastic or sclerotic lesion on the CT scan and bony metastasis versus old injury was in the differential diagnosis. Hence, I was consulted for further evaluation. PAST MEDICAL HISTORY: Prostate cancer at the age of 66, treated with radiation therapy. Melanoma at the age of 61, treated with enucleation of the left eye. Type 2 diabetes, heart disease and hypertension. PAST SURGICAL HISTORY: Angioplasty, coronary artery bypass, pacemaker, AICD, prostatectomy and left eye enucleation. FAMILY HISTORY: Positive for heart disease and diabetes. Son has cancer of unknown type. SOCIAL HISTORY: He drinks beer occasionally. No smoking. REVIEW OF SYSTEMS: A 12-point review of system was performed. Pertinent positives are mentioned in the history of present illness. Rest of the system review is negative. PHYSICAL EXAMINATION: GENERAL APPEARANCE: The patient is an 83-year-old gentleman who is in no acute cardiorespiratory distress. VITAL SIGNS: Blood pressure 119/73, temperature 97.6. HEENT: Atraumatic, normocephalic. Eyes, no icterus. NECK: Supple. CHEST: Bilaterally symmetrical. No crepitations or rhonchi heard. HEART: S1, S2 normal. ABDOMEN: Soft, nontender. CENTRAL NERVOUS SYSTEM: No focal deficits. LYMPHATICS: No lymphadenopathy. MUSCULOSKELETAL: No joint effusions. No rib tenderness. LABORATORY DATA: WBC 6.8, hemoglobin 10.9 and platelet count 219,000. Creatinine 1.1. Total protein 6.1, albumin 3.0, calcium is 9.5. IMPRESSION AND PLAN: 1. Bone lesion involving the posterior aspect of the left seventh rib, with a differential diagnosis including metastatic disease versus old injury. With a history of prostate cancer and history of melanoma, I would pursue with a bone biopsy for further evaluation. I discussed with Dr. Kvng Patel from Interventional Radiology, who will review the scans. I also discussed with a registered nurse. I will also order a PSA. CT chest, abdomen and pelvis does not reveal any definite malignancy. 2. Prostate cancer at the age of 66, treated with radiation therapy. I will obtain PSA. He reports that his last PSA was 0.1. 3. 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 This was diagnosed at the age of 61. No signs or symptoms of recurrent melanoma. I will await biopsy of the left seventh rib lesion. JEREMI WAGONER MD DR: PRINCESS/mustapha JOB#: [id number] / [id number]
--- NOTE | 2018-05-22 11:37 | PDOC ---
PROGRESS NOTES Subjective Subjective Patient has no complaints this am. Denies any chest pain or dyspnea. Objective Objective Vital Signs Date Time Temp Pulse Resp B/P (MAP) Pulse Ox O2 Delivery O2 Flow Rate FiO2 05/22/18 09:33 71 93/53 05/22/18 08:00 Room Air 05/22/18 07:33 97.5 16 98 97.5 Intake and Output 05/22/18 07:00 Intake Total 0 ml Output Total 1925 ml Balance -1925 ml Intake Oral 0 ml Output Urine Total 1925 ml # Voids 1 Physical Exam Physical Exam No significant cardiac changes. Assessment Assessment Ventricular Tachycardia Plan Plan of Care Pt has been switched to PO amiodarone. Pt's rhythm is stable. Oncology has him scheduled for a biopsy s/p bone scan results. Will continue to follow. Comment Review of Relevant I have reviewed the following items ron (where applicable) has been applied. Labs Laboratory Tests Test 05/20/18 11:35 05/21/18 05:30 Urine Sodium 122 mmol/L (Not Estab.) Urine Potassium 35.4 mmol/L (Not Estab.) Urine Chloride 96 mmol/L (Not Estab.) Sodium Level 144 mmol/L (136-145) Potassium Level 4.3 mmol/L (3.5-5.1) Chloride Level 107 mmol/L (98-107) Carbon Dioxide Level 29 mmol/L (21-32) Anion Gap 8 (6-14) Blood Urea Nitrogen 16 mg/dL (8-26) Creatinine 1.1 mg/dL (0.7-1.3) Estimated GFR (Cockcroft-Gault) 64.2 Glucose Level 89 mg/dL (70-99) Calcium Level 9.5 mg/dL (8.5-10.1) Phosphorus Level 3.5 mg/dL (2.6-4.7) Magnesium Level 1.8 mg/dL (1.8-2.4) Prostate Specific Antigen 0.18 ng/mL (0.00-4.00) Medications Current Medications Magnesium Sulfate 50 ml @ 25 mls/hr 1X ONCE IV Last administered on 05/19/18at 11:00; Start 05/19/18 at 11:00; Stop 05/19/18 at 12:59; Status DC Amiodarone HCl 150 mg/Dextrose 103 ml @ 600 mls/hr 1X ONCE IV Last administered on 05/19/18at 13:49; Start 05/19/18 at 14:00; Stop 05/19/18 at 14:10 ; Status DC Amiodarone HCl 900 mg/Dextrose 518 ml @ 33.33 mls/ hr CONT PRN IV SEE I/O RECORD Last administered on 05/19/18at 13:49; Start 05/19/18 at 14:30; Stop 05/19 at 14:30; Status DC Amiodarone HCl 900 mg/Dextrose 518 ml @ 16.67 mls/ hr CONT PRN IV SEE I/O RECORD; Start 05/19/18 at 13:15; Stop 05/20/18 at 07:14; Status DC Aspirin (Ecotrin) 325 mg DAILY16 PO Last administered on 05/22/18 09:32; Start 05/19/18 at 16:00 Atorvastatin Calcium (Lipitor) 20 mg DAILY16 PO ; Start 05/19/18 at 16:00; Stop 05/19/18 at 16:12; Status DC Acetaminophen (Tylenol) 500 mg QHS PO Last administered on 05/21/18 20:03; Start 05/19/18 at 21:00 Magnesium Oxide (Magnesium Oxide) 400 mg BID PO Last administered on 05/22/18 09:32; Start 05/19/18 at 21:00 Metformin HCl (Glucophage) 500 mg BIDWMEALS PO Last administered on 05/20/18at 09:39; Start 05/19/18 at 17:00; Stop 05/20/18 at 10:24; Status DC Multivitamins (Thera M Plus) 1 tab DAILY PO Last administered on 05/22/18at 09: 32; Start 05/19/18 at 17:00 Non-Formulary Medication ([melatonin] ) 10 mg QHS PO ; Start 05/19/18 at 21:00; Status UNV Magnesium Sulfate/ Dextrose 100 ml @ 100 mls/hr 1X ONCE IV ; Start 05/19/18 at 15:00; Stop 05/19/18 at 15:43; Status DC Diphenhydramine HCl (Benadryl) 25 mg QHS PO Last administered on 05/21/18 20: 03; Start 05/19/18 at 21:00 Atorvastatin Calcium (Lipitor) 20 mg QHS PO Last administered on 11/5/18at 20: 03; Start 05/19/18 at 21:00 Amiodarone HCl (Cordarone) 400 mg BID PO Last administered on 05/22/18at 09:33; Start 05/20/18 at 09:00 Iohexol (Omnipaque 240 Mg/ml) 50 ml 1X ONCE PO Last administered on 05/20/18at 10:30; Start 05/20/18 at 10:30; Stop 05/20/18 at 10:31; Status DC Info (CONTRAST GIVEN -- Rx MONITORING) 1 each PRN DAILY PRN MC SEE COMMENTS; Start 05/20/18 at 10:30; Stop 05/22/18 at 10:29; Status DC Metformin HCl (Glucophage) 500 mg BIDWMEALS PO ; Start 05/22/18 at 08:00 Tamsulosin HCl (Flomax) 0.4 mg QHS PO Last administered on 05/21/18at 20:03; Start 05/21/18 at 21:00 Active Scripts Active Mag-Oxide (Magnesium Oxide) 400 Mg Tablet 400 Mg PO BID 30 Days Propafenone Hcl 150 Mg Tablet 150 Mg PO BID 30 Days Reported [melatonin] 10 Mg PO QHS Centrum Silver Tablet (Multivits-Min/Fa/Lycopene/Lut) 1 Each Tablet 1 Tab DAILY Acetadryl 500-25 Mg Caplet (Acetaminophen/Diphenhydramine) 1 Each Tablet 1 Tab HS Aspir-Marybeth (Aspirin) 325 Mg Tablet. 1 Tab PO DAILY16 Metformin Hcl 500 Mg Tablet 1 Tab BIDBFRMEAL Atorvastatin Calcium 20 Mg Tablet 1 Tab DAILY16 Vitals/I & O Vital Sign - Last 24 Hours 05/21/18 05/21/18 05/21/18 05/21/18 12:34 14:23 18:16 20:02 Temp 97.6 97.9 97.6 97.9 Pulse 84 83 83 Resp 22 20 B/P (MAP) 119/73 (88) 147/68 (94) 147/68 Pulse Ox 98 O2 Delivery Room Air Room Air Room Air 05/21/18 05/21/18 05/22/18 05/22/18 20:20 22:30 02:31 07:33 Temp 97.9 97.5 97.9 97.5 Pulse 76 80 71 Resp 20 20 16 B/P (MAP) 127/66 (86) 100/56 (71) 93/53 (66) Pulse Ox 98 96 98 O2 Delivery Room Air Room Air Room Air Room Air 05/22/18 05/22/18 08:00 09:33 Pulse 71 B/P (MAP) 93/53 O2 Delivery Room Air Intake and Output 05/21/18 05/21/18 05/22/18 15:00 23:00 07:00 Intake Total 0 ml Output Total 100 ml 1025 ml 800 ml Balance -100 ml -1025 ml -800 ml JESSE RAND MD May 22, 2018 11:36
--- NOTE | 2018-05-22 11:52 | PDOC ---
PROGRESS NOTES Subjective Subjective HPI - -f/u of Bone lesion ROS - no CP Objective Objective Vital Signs Date Time Temp Pulse Resp B/P (MAP) Pulse Ox O2 Delivery O2 Flow Rate FiO2 05/22/18 09:33 71 93/53 05/22/18 08:00 Room Air 05/22/18 07:33 97.5 16 98 97.5 Intake and Output 05/22/18 07:00 Intake Total 0 ml Output Total 1925 ml Balance -1925 ml Intake Oral 0 ml Output Urine Total 1925 ml # Voids 1 Physical Exam Heart: Normal S1, Normal S2 General: Alert, Oriented X3 Lungs: Clear to auscultation Neuro: Normal speech Psych/Mental Status: Mental status NL Assessment Assessment IMPRESSION AND PLAN: 1. Bone lesion involving the posterior aspect of the left seventh rib, with a differential diagnosis including metastatic disease versus old injury. With a history of prostate cancer and history of melanoma, I would pursue with a bone biopsy for further evaluation. I discussed with Dr. Kvng Patel from Interventional Radiology, who will review the scans. I also discussed with a registered nurse. I will also order a PSA. CT chest, abdomen and pelvis does not reveal any definite malignancy. I d/w IR I d/w RN 2. Prostate cancer at the age of 66, treated with radiation therapy. PSA normal 0.18. 3. 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 This was diagnosed at the age of 61. No signs or symptoms of recurrent melanoma. I will await biopsy of the left seventh rib lesion. Comment Review of Relevant I have reviewed the following items rno (where applicable) has been applied. Labs Laboratory Tests Test 05/21/18 05:30 Sodium Level 144 mmol/L (136-145) Potassium Level 4.3 mmol/L (3.5-5.1) Chloride Level 107 mmol/L (98-107) Carbon Dioxide Level 29 mmol/L (21-32) Anion Gap 8 (6-14) Blood Urea Nitrogen 16 mg/dL (8-26) Creatinine 1.1 mg/dL (0.7-1.3) Estimated GFR (Cockcroft-Gault) 64.2 Glucose Level 89 mg/dL (70-99) Calcium Level 9.5 mg/dL (8.5-10.1) Phosphorus Level 3.5 mg/dL (2.6-4.7) Magnesium Level 1.8 mg/dL (1.8-2.4) Prostate Specific Antigen 0.18 ng/mL (0.00-4.00) Medications Current Medications Magnesium Sulfate 50 ml @ 25 mls/hr 1X ONCE IV Last administered on 05/19/18at 11:00; Start 05/19/18 at 11:00; Stop 05/19/18 at 12:59; Status DC Amiodarone HCl 150 mg/Dextrose 103 ml @ 600 mls/hr 1X ONCE IV Last administered on 05/19/18at 13:49; Start 05/19/18 at 14:00; Stop 05/19/18 at 14:10 ; Status DC Amiodarone HCl 900 mg/Dextrose 518 ml @ 33.33 mls/ hr CONT PRN IV SEE I/O RECORD Last administered on 05/19/18at 13:49; Start 05/19/18 at 14:30; Stop 05/19 at 14:30; Status DC Amiodarone HCl 900 mg/Dextrose 518 ml @ 16.67 mls/ hr CONT PRN IV SEE I/O RECORD; Start 05/19/18 at 13:15; Stop 05/20/18 at 07:14; Status DC Aspirin (Ecotrin) 325 mg DAILY16 PO Last administered on 05/22/18at 09:32; Start 05/19/18 at 16:00 Atorvastatin Calcium (Lipitor) 20 mg DAILY16 PO ; Start 05/19/18 at 16:00; Stop 05/19/18 at 16:12; Status DC Acetaminophen (Tylenol) 500 mg QHS PO Last administered on 05/21/18at 20:03; Start 05/19/18 at 21:00 Magnesium Oxide (Magnesium Oxide) 400 mg BID PO Last administered on 05/22/18 09:32; Start 05/19/18 at 21:00 Metformin HCl (Glucophage) 500 mg BIDWMEALS PO Last administered on 05/20/18at 09:39; Start 05/19/18 at 17:00; Stop 05/20/18 at 10:24; Status DC Multivitamins (Thera M Plus) 1 tab DAILY PO Last administered on 05/22/18 09: 32; Start 05/19/18 at 17:00 Non-Formulary Medication ([melatonin] ) 10 mg QHS PO ; Start 05/19/18 at 21:00; Status UNV Magnesium Sulfate/ Dextrose 100 ml @ 100 mls/hr 1X ONCE IV ; Start 05/19/18 at 15:00; Stop 05/19/18 at 15:43; Status DC Diphenhydramine HCl (Benadryl) 25 mg QHS PO Last administered on 05/21/18at 20: 03; Start 05/19/18 at 21:00 Atorvastatin Calcium (Lipitor) 20 mg QHS PO Last administered on 05/21/18at 20: 03; Start 05/19/18 at 21:00 Amiodarone HCl (Cordarone) 400 mg BID PO Last administered on 05/22/18at 09:33; Start 05/20/18 at 09:00 Iohexol (Omnipaque 240 Mg/ml) 50 ml 1X ONCE PO Last administered on 05/20/18at 10:30; Start 05/20/18 at 10:30; Stop 05/20/18 at 10:31; Status DC Info (CONTRAST GIVEN -- Rx MONITORING) 1 each PRN DAILY PRN MC SEE COMMENTS; Start 05/20/18 at 10:30; Stop 05/22/18 at 10:29; Status DC Metformin HCl (Glucophage) 500 mg BIDWMEALS PO ; Start 05/22/18 at 08:00 Tamsulosin HCl (Flomax) 0.4 mg QHS PO Last administered on 05/21/18at 20:03; Start 05/21/18 at 21:00 Active Scripts Active Mag-Oxide (Magnesium Oxide) 400 Mg Tablet 400 Mg PO BID 30 Days Propafenone Hcl 150 Mg Tablet 150 Mg PO BID 30 Days Reported [melatonin] 10 Mg PO QHS Centrum Silver Tablet (Multivits-Min/Fa/Lycopene/Lut) 1 Each Tablet 1 Tab DAILY Acetadryl 500-25 Mg Caplet (Acetaminophen/Diphenhydramine) 1 Each Tablet 1 Tab HS Aspir-Marybeth (Aspirin) 325 Mg Tablet. 1 Tab PO DAILY16 Metformin Hcl 500 Mg Tablet 1 Tab BIDBFRMEAL Atorvastatin Calcium 20 Mg Tablet 1 Tab DAILY16 Vitals/I & O Vital Sign - Last 24 Hours 05/21/18 05/21/18 05/21/18 05/21/18 12:34 14:23 18:16 20:02 Temp 97.6 97.9 97.6 97.9 Pulse 84 83 83 Resp 22 20 B/P (MAP) 119/73 (88) 147/68 (94) 147/68 Pulse Ox 98 O2 Delivery Room Air Room Air Room Air 05/21/18 05/21/18 05/22/18 05/22/18 20:20 22:30 02:31 07:33 Temp 97.9 97.5 97.9 97.5 Pulse 76 80 71 Resp 20 20 16 B/P (MAP) 127/66 (86) 100/56 (71) 93/53 (66) Pulse Ox 98 96 98 O2 Delivery Room Air Room Air Room Air Room Air 05/22/18 05/22/18 08:00 09:33 Pulse 71 B/P (MAP) 93/53 O2 Delivery Room Air Intake and Output 05/21/18 05/21/18 05/22/18 15:00 23:00 07:00 Intake Total 0 ml Output Total 100 ml 1025 ml 800 ml Balance -100 ml -1025 ml -800 ml JEREMI WAGONER MD May 22, 2018 11:52
[2018-05-22] MEDS ORDERED: LIDOCAINE WITH 8.4% SOD BICARB 3 ML DISP.SYRIN. ONE (12:34)
[2018-05-22] MEDS ORDERED: fentaNYL PF VIAL 100 MCG/2 ML VIAL ONE (13:08)
[2018-05-22] MEDS ORDERED: MIDAZOLAM HCL/PF 2 MG/2 ML VIAL. ONE (13:08)
[2018-05-22] MEDS ORDERED: AMIO200T4 PO (13:09)
[2018-05-22] MEDS ORDERED: TAMS0.4C97 PO (13:09)
--- NOTE | 2018-05-22 14:20 | PDOC2 ---
BLESSING MERIDA 05/22/18 1420: GI CONSULT Reason For Consult: Weight loss HPI: HPI: 83 y/o male admitted w/ nonsustained ventricular tachycardia. Has h/o prostate cancer and melanoma. Bone scan showed small focus of activity on posterior left seventh rib. D/w RN, plans to discharge this evening after bone biopsy - desire for outpt GI workup w/ weight loss and cancer history. He reports ~50 pound weight loss over the past two years w/ waxing and waning appetite. Occasional pill/food dysphagia but no reflux or n/v. No abd pain, diarrhea, melena, or hematochezia. Had some constipation after a hospitalization - attributed to an antibiotic - resolved. Hgb 10.9 (stable since 03/2018), MCV 86. On ASA. CT A/P noted diverticulosis w/ some mild wall thickening of sigmoid colon, moderate stool, and small gallstone. No previous EGD. Reports normal colonoscopy ~2-3 years ago. No liver or pancreas history. PMH: PMH: CAD, HTN, DM, cardiomyopathy, prostate cancer s/p radiation, melanoma, OA, diverticulosis, gallstone, anxiety angioplasty, CABG, pacemaker/AICD, prostatectomy, left eye enucleation FH: Family History: Cancer, CAD, DM Social History: Smoke: No ALCOHOL: occassional Drugs: None ROS: GEN: Denies fevers, chills, sweats HEENT: Denies blurred vision, sore throat CV: Denies chest pain RESP: Denies shortness of air, cough GI: Per HPI : Denies hematuria, dysuria ENDO: +weight loss NEURO: Denies confusion, dizziness MSK: Denies weakness, joint pain/swelling SKIN: Denies jaundice, pruritus Vitals: Vitals: Vital Signs Date Time Temp Pulse Resp B/P (MAP) Pulse Ox O2 Delivery O2 Flow Rate FiO2 05/22/18 13:55 79 11 100 2.0 05/22/18 12:50 Room Air 05/22/18 11:00 97.7 129/69 (89) 97.7 Labs: Labs: Reviewed in [employer]. Allergies: Coded Allergies: Milk Containing Products (Verified Allergy, Unknown, 05/07/18) Medications: Current Medications Medications (Trade) Dose Ordered Sig/Deidra Route PRN Reason Start Time Stop Time Status Last Admin Dose Admin Tamsulosin HCl (Flomax) 0.4 mg QHS PO 05/21/18 21:00 05/21/18 20:03 Imaging: Imaging: CXR IMPRESSION: No radiographic evidence of an acute cardiopulmonary process. Bone Scan IMPRESSION: 1. Small focus of activity posterior left seventh rib corresponding to a blastic or sclerotic lesion on the CT, possible bony metastatic disease, an old injury would be possible. 2. Slight activity at the costovertebral junctions on the left metastatic disease would be unusual in this pattern or old trauma or arthritis can have this pattern. Chest/A/P CT IMPRESSION: 1. Diverticulosis the colon without diverticulitis. There is some mild wall thickening of the sigmoid colon which could be diverticulitis although colonoscopy could be of benefit. 2. Moderate stool in the colon. 3. No bowel obstruction. 4. Small gallstone 5. Small abdominal aortic aneurysm. 6. No other abdominal or pelvic mass noted. PE: GEN: NAD HEENT: Atraumatic, PERRL LUNGS: CTAB HEART: RRR ABD: NABS, S/ND/NT EXTREMITY: No edema SKIN: No rashes, no jaundice NEURO/PSYCH: A & O 3 A/P: A/P: NSVT Left seventh rib lesion, h/o prostate cancer and melanoma Weight loss, decreased appetite, occasional dysphagia Anemia Diverticulosis - noted on CT w/ mild sigmoid wall thickening Cholelithiasis - gallstone noted on CT, incidental finding -- Check anemia parameters. DC per primary. Outpt EGD and colonoscopy after bone biopsy results - our office will contact. UZMA WOMACK MD 05/22/18 1522: LBESSING MERIDA May 22, 2018 14:20 UZMA WOMACK MD May 22, 2018 15:22
[2018-05-22] MEDS ORDERED: fentaNYL PF VIAL 100 MCG/2 ML VIAL IV ONE (14:45)
[2018-05-22] MEDS ORDERED: LIDOCAINE WITH 8.4% SOD BICARB 3 ML DISP.SYRIN. IJ ONE (14:45)
[2018-05-22] MEDS ORDERED: MIDAZOLAM HCL/PF 2 MG/2 ML VIAL. IV ONE (14:45)
--- NOTE | 2018-05-22 21:00 | DS ---
DATE OF DISCHARGE: 05/22/2018 ADMITTING DIAGNOSIS: Nonsustained ventricular tachycardia. DISMISSAL DIAGNOSIS: Nonsustained ventricular tachycardia. SECONDARY DIAGNOSES: 1. Hypomagnesemia. 2. Moderate protein malnutrition. 3. Orthostatic hypotension. 4. Coronary artery disease. 5. Progressive weight loss. 6. Seventh rib bone lesion. 7. Type 2 diabetes. 8. Hypertension. 9. High cholesterol. 10. Lumbar spinal stenosis. 11. Sick sinus syndrome with implantable cardioverter-defibrillator and pacemaker placement. 12. Benign prostatic hypertrophy. 13. Remote history of prostate cancer. 14. Remote history of left eye melanoma. 15. Chronic kidney disease stage 3. HISTORY OF PRESENT ILLNESS AND HOSPITAL COURSE: This patient is an 83-year-old male who had recurrent admission after ICD discharge and pacemaker interrogation revealed nonsustained ventricular tachycardia. The patient has had multiple hospitalizations due to arrhythmias and has been switched from mexiletine to Cardizem to Rythmol without significant improvement and recurrent episodes of SVT and V-tach. He was placed on amiodarone during this hospitalization and stabilized with normal sinus rhythm with decreased episodes of V-tach. The patient was also found to have a lesion on x-ray and bone scan did reveal possible metastatic disease versus old trauma. Biopsy was done prior to discharge. Further metastatic evaluation will be done as an outpatient. The patient was back to baseline and tolerating medications well. Therefore, he was discharged to home on the following medications: Amiodarone 400 mg b.i.d., Flomax 0.4 at bedtime, Tylenol PM at bedtime, aspirin 325 mg daily, atorvastatin 20 mg daily, magnesium oxide 400 mg b.i.d., metformin 500 mg b.i.d., multivitamin daily. Rythmol was discontinued. The patient did have frequent urination at night, resolved with Flomax, which was again restarted. DISCHARGE INSTRUCTIONS: The patient will follow up in 1 week in general agent clinic and follow up with GI Medicine for outpatient EGD and colonoscopy. ADRIAN JOHNSON MD DR: KATIE/mustapha JOB#: [id number] / [id number]
--- NOTE | 2018-05-23 09:36 | RAD ---
CT-guided biopsy, left seventh rib, sclerotic lesion 05/22/2018 Discussion: The risks and benefits of the procedure were discussed the patient. Informed consent was obtained. A timeout procedure was performed. The left thorax prepped and draped using sterile barrier technique. CT imaging redemonstrates a small sclerotic lesion in the posterior lateral left seventh rib. A 17-gauge needles manipulated into the rib, at the level of this lesion. 18-gauge core biopsy samples were obtained and placed in formalin. [place] were removed and manual pressure was held. No immediate complications were identified. The procedure was performed under conscious sedation including continuous cardiopulmonary monitoring via a dedicated sedation nurse. [id number] sedation time: 45 minutes Impression: CT-guided biopsy, sclerotic lesion left seventh rib PQRS Compliance Statement: One or more of the following individualized dose reduction techniques were utilized for this examination: 1. Automated exposure control 2. Adjustment of the mA and/or kV according to patient size 3. Use of iterative reconstruction technique
--- NOTE | 2018-05-24 15:08 | PATHOLOGY ---
[facility] Accession Number: [id number] . 01 Material submitted: . LEFT 7TH RIB LESION BIOPSY . 01 Clinical history: . Left 7th rib lesion . . 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 [facility]/05/24/2018 . 02 Comment: There is no evidence of malignancy. (J[facility] 05/24/2018) . 02 Electronically signed: . Juan Todd MD, Pathologist NPI- [id number] . 01 Gross description: . Received in formalin labeled "Art Torres, L 7th rib BX," are two needle cores of dark brown soft tissue ranging from 1.0 to 1.3 cm in length and measuring 0.1 cm each in diameter admixed with smaller fragments of calderón-brown possible soft tissue. Bone is not identified grossly. The specimen is submitted entirely in cassettes A1 and A2. ([facility]; 05/23/2018) XDC/XDC . 02 Pathologist provided ICD-10: M79.9 . 02 CPT . 306808 Specimen Comment: A courtesy copy of this report has been sent to Specimen Comment: [phone], , , . Specimen Comment: Report sent to ,DR AZUL,DR ALEX WAGONER Specimen Comment: A duplicate report has been generated due to demographic updates. Performed at: 01 [facility] [address], [place] [id number] MD Gerry Manning MD Phone: [phone] Performed at: 02 [facility] [place] [id number] MD Juan Todd MD Phone: [phone]
== END 2018-05-22 17:00 | disposition home or self-care (01) | DRG 309 ==
LOC: ER 09:24 → CVICU 11:52
PROVIDERS: ADMIT Family Medicine; ATTEND Family Medicine
DX: I47.2 Ventricular tachycardia (principal); E87.3 Alkalosis; E44.0 Moderate protein-calorie malnutrition; Z68.1 Body mass index [BMI] 19.9 or less, adult; I12.9 Hypertensive chronic kidney disease with stage 1 through stage 4 chronic kidney disease, or unspecified chronic kidney disease; I95.1 Orthostatic hypotension; I49.3 Ventricular premature depolarization; I25.5 Ischemic cardiomyopathy; E83.42 Hypomagnesemia; N18.3 Chronic kidney disease, stage 3 (moderate); E11.22 Type 2 diabetes mellitus with diabetic chronic kidney disease; I48.91 Unspecified atrial fibrillation; I25.10 Atherosclerotic heart disease of native coronary artery without angina pectoris; J44.9 Chronic obstructive pulmonary disease, unspecified; K21.9 Gastro-esophageal reflux disease without esophagitis; M89.9 Disorder of bone, unspecified; E78.00 Pure hypercholesterolemia, unspecified; M48.061 Spinal stenosis, lumbar region without neurogenic claudication; N40.0 Benign prostatic hyperplasia without lower urinary tract symptoms; F41.9 Anxiety disorder, unspecified; Z79.899 Other long term (current) drug therapy; Z95.810 Presence of automatic (implantable) cardiac defibrillator; Z85.46 Personal history of malignant neoplasm of prostate; Z85.840 Personal history of malignant neoplasm of eye; Z95.1 Presence of aortocoronary bypass graft; Z83.3 Family history of diabetes mellitus; Z82.49 Family history of ischemic heart disease and other diseases of the circulatory system; Z92.3 Personal history of irradiation; Z85.820 Personal history of malignant melanoma of skin; Z79.84 Long term (current) use of oral hypoglycemic drugs; Z79.82 Long term (current) use of aspirin; Z95.5 Presence of coronary angioplasty implant and graft
CPT/HCPCS: 20220; 36415; 71045; 71250; 74176; 77012; 78306; 80048; 80053; 81001; 82436; 82550; 82553; 82962; 83735; 83880; 84100; 84133; 84300; 84439; 84443; 84481; 84484; 85025; 85610; 88305; 93005; 96365; 96366; 96374; 99152; 99153; A9503; G0103; J0282; J2250; J3010; J3475; Q0163; Q9966; 99285-25

== ENCOUNTER → 2018-10-17 | Outpatient (CLI) | payer MEDICARE ==
[2018-05-22 15:29] VITALS: BP 131/62
[~2018-10-17] MED LIST changes: +AMIO200T4 PO; +TAMS0.4C97 PO
--- NOTE | 2018-10-18 12:35 | SLEEP ---
DATE OF STUDY: 10/17/2018 ATTENDING PHYSICIAN: Dayday Friedman. The patient is an 83-year-old who weighs 135 pounds with a BMI of 22. The patient's [place] score was 6. The patient underwent split night study at [facility]. During the night study, the patient spent 447 minutes in bed and slept for 210 minutes with a low sleep efficiency of 47%. Sleep latency was 18 minutes with an absent REM sleep. Overall, sleep architecture showed increased stage 1 and stage 2 sleep, absent slow wave and absent REM sleep. During the initial diagnostic portion of the study, the patient slept for 134 minutes. During that time, there were 9 obstructive apneas, 66 mixed apneas, no central apneas and 21 hypopneas. The patient's apnea hypopnea index was 43 per hour. Supine index 58 per hour. REM sleep was not observed. PLMS were seen at index of 2 per hour and 1 per hour caused EEG arousals. EKG monitoring revealed an average heart rate of 63 beats per minute. No arrhythmias observed. Nocturnal oximetry study revealed a mean oxygen saturation 91% with the lowest of 86%. 13% of time oxygen saturation remained between 80% and 89%. The patient met the criteria for CPAP initiation, which was started at 5 cm water and titrated up to 9 cm water. There were some central apneas observed at higher pressure. The best results were seen at a CPAP pressure of 7 cm water. The patient had 41 minutes of sleep. The patient had a supine sleep, but no REM sleep observed. The patient's AHI was 7 per hour, mostly from few central apneas from mask leak. Oxygen saturation remained above 93%. The patient used a full face mask. IMPRESSION: 1. Severe sleep apnea-hypopnea syndrome at an AHI of 43 per hour. 2. Nocturnal hypoxia secondary to obstructive sleep apnea, but resolved with CPAP. 3. No clinically significant PLMS. RECOMMENDATIONS: 1. CPAP at 7 cm water should be used on a nightly basis. 2. Follow up in 4-6 weeks to assess compliance with CPAP and to document clinical improvement. 3. Avoid [employer] depressants. 4. Caution regarding driving until symptoms of sleep apnea resolve with the use of CPAP. TATYANA RICE MD DR: LILIA/mustapha JOB#: [id number] / [id number]
== END | disposition home or self-care (01) ==
LOC: SLPLAB 18:31
DX: G47.33 Obstructive sleep apnea (adult) (pediatric) (principal); G47.34 Idiopathic sleep related nonobstructive alveolar hypoventilation
CPT/HCPCS: 95810

== ENCOUNTER 2019-05-16 19:57 | Emergency (ER) | payer MEDICARE ==
[~2019-05-16] VITALS: Ht 167.6 cm; Wt 65.8 kg
[~2019-05-16 19:57] MED LIST changes: +DOXY-96 PO; -DOXY100T9 PO
[2019-05-16 20:24] VITALS: BP 160/73
== END 2019-05-16 20:28 | disposition left against medical advice (07) ==
LOC: ER 19:57
DX: H57.89 Other specified disorders of eye and adnexa (principal); Z53.21 Procedure and treatment not carried out due to patient leaving prior to being seen by health care provider

== ENCOUNTER 2019-06-10 16:57 | Inpatient (IN) | payer MEDICARE ==
[~2019-06-10] VITALS: Ht 167.6 cm; Wt 67.3 kg
[2019-06-10] MEDS ORDERED: IV NORMAL SALINE 1000ML BAG 1,000 ML IV STA ×2 (17:22→19:05)
--- NOTE | 2019-06-10 17:26 | PHYS DOC ---
Past Medical History Past Medical History: Diabetes-Type II, Heart Disease, Hypertension Additional Past Medical Histor: Eye Cancer, Prostate Cancer (ADRIAN DANIELS APRN) Past Surgical History: Angioplasty, Coronary Bypass Surgery, Pacemaker Additional Past Surgical Histo: Prostatectomy, Left Eye Surgery, Defib Placement, CARDIAC STENTS (ADRIAN DANIELS APRN) Alcohol Use: Occasionally Drug Use: None (ADRIAN DANIELS APRN) Adult General Chief Complaint Chief Complaint: WEAKNESS/GENERALIZED HPI HPI Patient is a 84 year old male who presents with and was weakness, cough, fever. The patient states that on Monday he started having trouble walking and then started having a deep cough on Monday with a fever he was unable to get out of his recliner today. He went to see his primary care doctor (Joselo) placed on doxycycline. He had one dose of this however he started having more and more weakness and also states states that he started feeling like he was getting confused and so decided to come to the ER. Denies pain at this time. (ADRIAN DANIELS APRN) Review of Systems Review of Systems Constitutional: Reports fever or chills and generalized weakness. Eyes: Denies change in visual acuity, redness, or eye pain [] HENT: Denies nasal congestion or sore throat [] Respiratory: Reports cough and shortness of breath. Cardiovascular: No additional information not addressed in HPI [] GI: Denies abdominal pain, nausea, vomiting, bloody stools or diarrhea [] : Denies dysuria or hematuria [] Musculoskeletal: Denies back pain or joint pain [] Integument: Denies rash or skin lesions [] Neurologic: Denies headache, focal weakness or sensory changes [] Endocrine: Denies polyuria or polydipsia [] Complete systems were reviewed and found to be within normal limits, except as documented in this note. (ADRIAN DANEILS APRN) Current Medications Current Medications Current Medications Medications (Trade) Dose Ordered Sig/Deidra Start Time Stop Time Status Last Admin Dose Admin Acetaminophen (Tylenol) 650 mg PRN Q4HRS PRN 06/10/19 19:15 06/11/19 19:14 Ceftriaxone Sodium (Rocephin) 1 gm 1X STAT 06/10/19 18:43 06/10/19 18:45 DC 06/10/19 19:30 1 GM Fentanyl Citrate (Fentanyl 2ml Vial) 50 mcg PRN Q1HR PRN 06/10/19 19:15 06/11/19 19:14 Magnesium Sulfate/ Dextrose 100 ml @ 100 mls/hr 1X STAT 06/10/19 19:07 06/10/19 20:06 DC 06/10/19 20:28 100 MLS/HR Ondansetron HCl (Zofran) 4 mg PRN Q8HRS PRN 06/10/19 19:15 06/11/19 19:14 Sodium Chloride 1,000 ml @ 1,000 mls/hr 1X STAT 06/10/19 19:05 06/10/19 20:04 DC 06/10/19 19:31 1,000 MLS/HR (MAICOL MURILLO MD) Physical Exam Physical Exam Constitutional: Well developed, well nourished, no acute distress, non-toxic appearance. [] HENT: Normocephalic, atraumatic, bilateral external ears normal, oropharynx moist, no oral exudates, nose normal. [] Eyes: PERRLA, EOMI, conjunctiva normal, no discharge. [] Neck: Normal range of motion, no tenderness, supple, no stridor. [] Cardiovascular:Heart rate regular rhythm, no murmur [] Lungs & Thorax: Bilateral breath sounds clear to auscultation [] Abdomen: Bowel sounds normal, soft, no tenderness, no masses, no pulsatile masses. [] Skin: Warm, dry, no erythema, no rash. [] Back: No tenderness, no CVA tenderness. [] Extremities: No tenderness, no cyanosis, no clubbing, ROM intact, no edema. [] Neurologic: Alert and oriented X 3, normal motor function, normal sensory function, no focal deficits noted. [] Psychologic: Affect normal, judgement normal, mood normal. [] (ADRIAN DANIELS APRN) Current Patient Data Vital Signs Vital Signs Date Time Temp Pulse Resp B/P (MAP) Pulse Ox O2 Delivery O2 Flow Rate FiO2 06/10/19 18:30 98 18 94 06/10/19 17:02 103.6 160/90 (113) Room Air 103.6 (MAICOL MURILLO MD) Lab Values Laboratory Tests Test 06/10/19 17:12 06/10/19 17:17 06/10/19 18:08 Influenza Type A Antigen Negative (NEGATIVE) Influenza Type B Antigen Negative (NEGATIVE) White Blood Count 9.2 x10^3/uL (4.0-11.0) Red Blood Count 4.41 x10^6/uL (4.30-5.70) Hemoglobin 12.0 g/dL (13.0-17.5) L Hematocrit 37.1 % (39.0-53.0) L Mean Corpuscular Volume 84 fL (79-100) Mean Corpuscular Hemoglobin 27 pg (25-35) Mean Corpuscular Hemoglobin Concent 32 g/dL (31-37) Red Cell Distribution Width 16.3 % (11.5-14.5) H Platelet Count 141 x10^3/uL (140-400) Neutrophils (%) (Auto) 87 % (31-73) H Lymphocytes (%) (Auto) 4 % (24-48) L Monocytes (%) (Auto) 9 % (0-9) Eosinophils (%) (Auto) 0 % (0-3) Basophils (%) (Auto) 0 % (0-3) Neutrophils # (Auto) 8.0 x10^3/uL (1.8-7.7) H Lymphocytes # (Auto) 0.4 x10^3/uL (1.0-4.8) L Monocytes # (Auto) 0.8 x10^3/uL (0.0-1.1) Eosinophils # (Auto) 0.0 x10^3/uL (0.0-0.7) Basophils # (Auto) 0.0 x10^3/uL (0.0-0.2) Segmented Neutrophils % 66 % (35-66) Band Neutrophils % 19 % (0-9) H Lymphocytes % 6 % (24-48) L Atypical Lymphocytes % (Manual) 2 % (0-0) H Monocytes % 7 % (0-10) Platelet Estimate Adequate (ADEQUATE) Anisocytosis Slight Prothrombin Time 19.5 SEC (11.7-14.0) H Prothrombin Time INR 1.7 (0.8-1.1) H Activated Partial Thromboplast Time 39 SEC (24-38) H Sodium Level 134 mmol/L (136-145) L Potassium Level 4.3 mmol/L (3.5-5.1) Chloride Level 97 mmol/L (98-107) L Carbon Dioxide Level 25 mmol/L (21-32) Anion Gap 12 (6-14) Blood Urea Nitrogen 24 mg/dL (8-26) Creatinine 1.5 mg/dL (0.7-1.3) H Estimated GFR (Cockcroft-Gault) 44.8 BUN/Creatinine Ratio 16 (6-20) Glucose Level 156 mg/dL (70-99) H Lactic Acid Level 2.7 mmol/L (0.4-2.0) H Calcium Level 9.0 mg/dL (8.5-10.1) Magnesium Level 1.7 mg/dL (1.8-2.4) L Total Bilirubin 0.7 mg/dL (0.2-1.0) Aspartate Amino Transferase (AST) 40 U/L (15-37) H Alanine Aminotransferase (ALT) 35 U/L (16-63) Alkaline Phosphatase 65 U/L (46-116) Troponin I Quantitative < 0.017 ng/mL (0.000-0.055) Total Protein 7.6 g/dL (6.4-8.2) Albumin 3.5 g/dL (3.4-5.0) Albumin/Globulin Ratio 0.9 (1.0-1.7) L Procalcitonin < 0.10 ng/mL (0.00-0.10) Urine Collection Type Unknown Urine Color Yellow Urine Clarity Clear Urine pH 5.5 Urine Specific Carlock 1.020 Urine Protein 30 mg/dL (NEG-TRACE) Urine Glucose (UA) Negative mg/dL (NEG) Urine Ketones (Stick) Negative mg/dL (NEG) Urine Blood Small (NEG) Urine Nitrite Negative (NEG) Urine Bilirubin Negative (NEG) Urine Urobilinogen Dipstick 0.2 mg/dL (0.2 mg/dL) Urine Leukocyte Esterase Negative (NEG) Urine RBC 1-2 /HPF (0-2) Urine WBC 0 /HPF (0-4) Urine Squamous Epithelial Cells Few /LPF Urine Bacteria 0 /HPF (0-FEW) Urine Mucus Mod /LPF Laboratory Tests 06/10/19 17:17 Laboratory Tests 06/10/19 17:17 (MAICOL MURILLO MD) Lab Values Laboratory Tests Test 06/10/19 17:12 06/10/19 17:17 06/10/19 18:08 Influenza Type A Antigen Negative (NEGATIVE) Influenza Type B Antigen Negative (NEGATIVE) White Blood Count 9.2 x10^3/uL (4.0-11.0) Red Blood Count 4.41 x10^6/uL (4.30-5.70) Hemoglobin 12.0 g/dL (13.0-17.5) L Hematocrit 37.1 % (39.0-53.0) L Mean Corpuscular Volume 84 fL (79-100) Mean Corpuscular Hemoglobin 27 pg (25-35) Mean Corpuscular Hemoglobin Concent 32 g/dL (31-37) Red Cell Distribution Width 16.3 % (11.5-14.5) H Platelet Count 141 x10^3/uL (140-400) Neutrophils (%) (Auto) 87 % (31-73) H Lymphocytes (%) (Auto) 4 % (24-48) L Monocytes (%) (Auto) 9 % (0-9) Eosinophils (%) (Auto) 0 % (0-3) Basophils (%) (Auto) 0 % (0-3) Neutrophils # (Auto) 8.0 x10^3/uL (1.8-7.7) H Lymphocytes # (Auto) 0.4 x10^3/uL (1.0-4.8) L Monocytes # (Auto) 0.8 x10^3/uL (0.0-1.1) Eosinophils # (Auto) 0.0 x10^3/uL (0.0-0.7) Basophils # (Auto) 0.0 x10^3/uL (0.0-0.2) Platelet Estimate Pending Prothrombin Time 19.5 SEC (11.7-14.0) H Prothrombin Time INR 1.7 (0.8-1.1) H Activated Partial Thromboplast Time 39 SEC (24-38) H Sodium Level 134 mmol/L (136-145) L Potassium Level 4.3 mmol/L (3.5-5.1) Chloride Level 97 mmol/L (98-107) L Carbon Dioxide Level 25 mmol/L (21-32) Anion Gap 12 (6-14) Blood Urea Nitrogen 24 mg/dL (8-26) Creatinine 1.5 mg/dL (0.7-1.3) H Estimated GFR (Cockcroft-Gault) 44.8 BUN/Creatinine Ratio 16 (6-20) Glucose Level 156 mg/dL (70-99) H Lactic Acid Level 2.7 mmol/L (0.4-2.0) H Calcium Level 9.0 mg/dL (8.5-10.1) Magnesium Level 1.7 mg/dL (1.8-2.4) L Total Bilirubin 0.7 mg/dL (0.2-1.0) Aspartate Amino Transferase (AST) 40 U/L (15-37) H Alanine Aminotransferase (ALT) 35 U/L (16-63) Alkaline Phosphatase 65 U/L (46-116) Total Protein 7.6 g/dL (6.4-8.2) Albumin 3.5 g/dL (3.4-5.0) Albumin/Globulin Ratio 0.9 (1.0-1.7) L Procalcitonin < 0.10 ng/mL (0.00-0.10) Urine Collection Type Unknown Urine Color Yellow Urine Clarity Clear Urine pH 5.5 Urine Specific Carlock 1.020 Urine Protein 30 mg/dL (NEG-TRACE) Urine Glucose (UA) Negative mg/dL (NEG) Urine Ketones (Stick) Negative mg/dL (NEG) Urine Blood Small (NEG) Urine Nitrite Negative (NEG) Urine Bilirubin Negative (NEG) Urine Urobilinogen Dipstick 0.2 mg/dL (0.2 mg/dL) Urine Leukocyte Esterase Negative (NEG) Urine RBC 1-2 /HPF (0-2) Urine WBC 0 /HPF (0-4) Urine Squamous Epithelial Cells Few /LPF Urine Bacteria 0 /HPF (0-FEW) Urine Mucus Mod /LPF Laboratory Tests 06/10/19 17:17 Laboratory Tests 06/10/19 17:17 (ADRIAN DANIELS APRN) EKG EKG EKG interpreted by Dr. Chidi Lawler with rate of 91. No STEMI.[] (ADRIAN DANIELS APRN) Radiology/Procedures Radiology/Procedures [] (ADRIAN DANIELS APRN) Course & Med Decision Making Course & Med Decision Making Pertinent Labs and Imaging studies reviewed. (See chart for details) Patient is tachycardic, with weakness, and fever. Appears to be septic. Lactic is 2.7, procalcitonin is negative. Creatinine is 1.5, mag is 1.7 (Will replace) Appears to be septic and has MILES. Will give 2 L of NS to meet 30 ml/kg sepsis guidelines. Discussed with Dr. Watkins who accepts admission to hospital. Dr. Watkins wonders if the Flu test was a false negative and if he has flu. Will order Tamiflu BID 30 mg. Will also add on EKG and Troponin. Also discussed with Dr. Murillo who suggest to add on CT CHEST/ABDOMEN/PELVIS to check for other infection sources. (ADRIAN DANIELS APRN) Course & Med Decision Making I saw and evaluated this patient CT chest abdomen pelvis that I reviewed after the patient left the department did show a left base pneumonia. Patient did not need a lumbar puncture in my opinion. I ordered a dose of doxycycline to add ceftriaxone (MAICOL MURILLO MD) Dragon Disclaimer Dragon Disclaimer This electronic medical record was generated, in whole or in part, using a voice recognition dictation system. (ADRIAN DANIELS APRN) Departure Departure Impression: Primary Impression: Sepsis Additional Impressions: MILES (acute kidney injury) Hypomagnesemia Admitting Physician: ELDA (ADRIAN DANIELS APRN) Condition: STABLE Referrals: ADRIAN JOHNSON MD (PCP) Date and Time of Reassessment Date: Jun 10, 2019 Time: 18:29 (ADRIAN DANIELS APRN) Fluid Challenge Is the fluid challenge complet: No IBW Target Volume Used: No BMI > 30: No (ADRIAN DANIELS APRN) Vital Signs Vital Signs: Vital Signs Date Time Temp Pulse Resp B/P (MAP) Pulse Ox O2 Delivery O2 Flow Rate FiO2 06/10/19 18:30 98 18 94 06/10/19 17:02 103.6 160/90 (113) Room Air 103.6 (MAICOL MURILLO MD) Temperature Source: Rectal (ADRIAN DANIELS APRN) Respirations Respiratory Effort: Normal Respiratory Pattern: Normal (ADRIAN DANIELS APRN) Cardiovascular Pulse Rhythm: Regular Heart: No rubs, clicks or gallop, S1 and S2 normal (ADRIAN DANIELS APRN) Lung Sounds Breath Sounds: Clear (ARDIAN DANIELS APRN) Capillary Refil Capillary Refill: Rt Hand < 3 seconds (ADRIAN DANIELS APRN) Peripheral Pulse Pulse Location: Radial Pulse Strength: Normal (2+) Pulse Assessment Method: Monitor (ADRIAN DANIELS APRN) Integumentary Skin: Warm, Dry Skin Moisture: Dry Skin Turgor: Normal Skin Color: warm, dry Fingernail Color: WNL (ADRIAN DANIELS APRN) Problem Qualifiers Primary Impression: Sepsis Sepsis type: sepsis due to unspecified organism Sepsis acute organ dysfunction status: with acute organ dysfunction Severe sepsis acute organ dysfunction type: acute renal failure Severe sepsis shock status: without septic shock ADRIAN DANIELS APRN Jun 10, 2019 17:26 MAICOL MURILLO MD Jun 10, 2019 23:12
[2019-06-10 17:33] LABS: BASO % 0 % (0-3); EOS % 0 % (0-3); HEMATOCRIT 37.1 % (39.0-53.0); LYMPH # 0.4 x10^3/uL (1.0-4.8); LYMPH % 4 % (24-48); MEAN CORPUSCULAR HEMOGLOBIN 27 pg (25-35); MEAN CORPUSCULAR HGB CONC 32 g/dL (31-37); MEAN CORPUSCULAR VOLUME 84 fL (79-100); MONO # 0.8 x10^3/uL (0.0-1.1); MONO % 9 % (0-9); NEUT % 87 % (31-73); PLATELET COUNT 141 x10^3/uL (140-400); RED BLOOD COUNT 4.41 x10^6/uL (4.30-5.70); RED CELL DISTRIBUTION WIDTH 16.3 % (11.5-14.5); WHITE BLOOD COUNT 9.2 x10^3/uL (4.0-11.0)
[2019-06-10 17:35] LABS: INFLUENZA A PATIENT NEGATIVE (NEGATIVE); INFLUENZA B PATIENT NEGATIVE (NEGATIVE)
[2019-06-10 17:35] LABS: CREATININE 1.5 mg/dL (0.7-1.3); GFR 44.8; POTASSIUM 4.3 mmol/L (3.5-5.1)
[2019-06-10 17:41] LABS: ALBUMIN 3.5 g/dL (3.4-5.0); ALBUMIN/GLOBULIN RATIO 0.9 (1.0-1.7); MAGNESIUM 1.7 mg/dL (1.8-2.4); TOTAL BILIRUBIN 0.7 mg/dL (0.2-1.0); TOTAL PROTEIN 7.6 g/dL (6.4-8.2)
[2019-06-10 17:42] LABS: PROTHROMBIN TIME PATIENT 19.5 SEC (11.7-14.0)
--- NOTE | 2019-06-10 17:59 | RAD ---
Exam: Chest one view INDICATION: Cough TECHNIQUE: Frontal view of the chest Comparisons: 05/19/2018 FINDINGS: AICD with leads terminating the right atrium, ventricle and coronary sinus. Sternotomy wires are again noted. Heart is enlarged. Pulmonary vessels are within normal limits. The lung and pleural spaces are clear. IMPRESSION: No acute pulmonary process. Electronically signed by: Anthony Phelps MD (06/10/2019 5:56 PM) [facility]
[2019-06-10 18:17] LABS: BILIRUBIN,URINE NEGATIVE (NEG); CLARITY,URINE CLEAR; COLOR,URINE YELLOW; NITRITE,URINE NEGATIVE (NEG); PH,URINE 5.5; PROTEIN,URINE 30 mg/dL (NEG-TRACE); UROBILINOGEN,URINE 0.2 mg/dL (0.2 mg/dL)
[2019-06-10 18:28] LABS: BACTERIA,URINE 0 /HPF (0-FEW); SQUAMOUS EPITHELIAL CELL,UR FEW /LPF; WBC,URINE 0 /HPF (0-4)
[2019-06-10] MEDS ORDERED: cefTRIAXone IV Push 1 GM VIAL. IVP STA (18:43)
[2019-06-10] MEDS ORDERED: MAGNESIUM SULFATE 1GM 100 ML IV STA (19:07)
[2019-06-10] MEDS ORDERED: ONDANSETRON PF 4 MG/2 ML VIAL. IV PRN (19:15)
[2019-06-10] MEDS ORDERED: fentaNYL PF VIAL 100 MCG/2 ML VIAL IV PRN (19:15)
[2019-06-10] MEDS ORDERED: ACETAMINOPHEN 325 MG TABLET. PO PRN (19:15)
[2019-06-10 19:23] LABS: % ATYL 2 % (0-0); % BANDS 19 % (0-9); % LYMPHS 6 % (24-48); % MONOS 7 % (0-10); % SEGS 66 % (35-66)
[2019-06-10 19:24] LABS: PLT ESTIMATE ADEQUATE (ADEQUATE)
[2019-06-10 19:25] LABS: ANISOCYTOSIS SLIGHT
[2019-06-10] MEDS: OSELTAMIVIR 30 MG CAPSULE PO SCH (19:30)
--- NOTE | 2019-06-10 20:37 | RAD ---
Exam: CT head INDICATION: Altered mental status TECHNIQUE: Sequential axial images through the head were obtained without the administration of IV contrast. Comparisons: None FINDINGS: No focal parenchymal lesion or hemorrhage is identified. There is no midline shift or sulcal effacement. Patchy hypodensity noted within the periventricular and subcortical white matter. No acute vascular territory infarction is identified. Walden-white distinction is preserved. The ventricular system is within normal limits without compression hydrocephalus. The basal cisterns are well maintained. The visualized portions of the paranasal sinuses and mastoid air cells are well-pneumatized. No acute fractures. IMPRESSION: Patchy hypodensities representing small vessel ischemic change, technically age indeterminate without prior imaging. If there are concerns for acute ischemia MRI is recommended. Exposure: One or more of the following in the visualized dose reduction techniques were utilized for this examination: 1. Automated exposure control 2. Adjustment of the MA and/or KV according to patient size Use of iterative of reconstructive technique Electronically signed by: Anthony Phelps MD (06/10/2019 8:35 PM) [facility]
--- NOTE | 2019-06-10 20:43 | RAD ---
Exam: CT of chest, abdomen and pelvis without contrast INDICATION: Fever TECHNIQUE: Sequential axial images through the chest, abdomen and pelvis obtained without IV contrast. Sagittal and coronal reformatted images were reconstructed from the axial data and reviewed. Comparisons: None FINDINGS: Visualized portions of the thyroid are unremarkable. No enlarged mediastinal lymph nodes. Heart is enlarged. No pericardial effusion. Severe trivessel coronary artery calcifications are noted. AICD leads noted terminating in the right atrium, ventricle and coronary sinus. Thoracic aorta has a normal course and caliber. Pulmonary artery is not enlarged. Airways are patent. There is patchy airspace disease at the left lung base. More focal areas of dense consolidation noted centrally. No pneumothorax. No suspicious lung. No pleural effusion or thickening. Evaluation of solid organs is limited secondary to noncontrast technique. Liver, spleen, pancreas, and adrenals are unremarkable. Gallstones are noted within the gallbladder which is otherwise unremarkable. No perinephric inflammation or hydronephrosis. There is a hyperattenuating cystic lesion at the mid right kidney measuring 2.5 cm in diameter which is incompletely characterized on noncontrast exam. No renal or ureteral calculi are identified. Bladder is distended and appears thin-walled. Prostate is not enlarged. Diverticulosis in the colon predominantly at the sigmoid colon without evidence of acute diverticulitis. Remainder of the large and small bowel are unremarkable. No obstruction. No free intra-abdominal air or fluid. There is ectasia of the infrarenal abdominal aorta measuring up to 2.8 cm in diameter. No enlarged intra-abdominal lymph nodes are identified. No suspicious osseous lesions or acute fractures. IMPRESSION: 1. Airspace disease at the left lung base favored to be infectious or inflammatory in etiology. 2. No source of infection identified within the abdomen or pelvis. 3. Diverticulosis without evidence of acute diverticulitis. 4. Cholelithiasis 5. Ectasia of the infrarenal abdominal aorta measuring up to 2.8 cm in diameter. Exposure: One or more of the following in the visualized dose reduction techniques were utilized for this examination: 1. Automated exposure control 2. Adjustment of the MA and/or KV according to patient size 3. Use of iterative of reconstructive technique Electronically signed by: Anthony Phelps MD (06/10/2019 8:40 PM) [facility]
[2019-06-10 21:20] VITALS: BP 128/47
[2019-06-10] MEDS: TAMSULOSIN 0.4 MG CAP.ER.24H. PO SCH (22:40)
[2019-06-10 23:20] VITALS: BP 131/48
[2019-06-10] MEDS ORDERED: DOXYCYCLINE HYCLATE 100 MG in IV DEXTROSE 5% 100ML 100 ML IV ONE (23:45)
[2019-06-11 03:20] VITALS: BP 102/54
[2019-06-11] MEDS ORDERED: POLY17PO29 PO (04:20)
[2019-06-11] MEDS ORDERED: RANI150C PO (04:20)
[2019-06-11] MEDS ORDERED: FOLI1TAB4 PO (04:20)
[2019-06-11] MEDS ORDERED: FERR325T14 PO (04:20)
[2019-06-11] MEDS ORDERED: APIX5TAB PO (04:20)
[2019-06-11] MEDS ORDERED: METO-239 PO (04:20)
[2019-06-11] MEDS ORDERED: CLOP75TA PO (04:20)
[2019-06-11] MEDS ORDERED: FLUT9.9S NS (04:20)
[2019-06-11] MEDS ORDERED: LORA10CA PO (04:20)
[2019-06-11] MEDS ORDERED: ATOR40TA59 PO (04:20)
[2019-06-11] MEDS ORDERED: DOCU-109 PO (04:20)
--- NOTE | 2019-06-11 04:20 | NUR ---
Pt. arrived on unit at 06/10 by bed from ER. Pt. is A&Ox4, on RA and VSS. Pt. does not complain of pain but would like to sleep. Admission questions were answered by pt.'s , Rosi Torres. Assessment was done on pt. Call light was given and bed was placed in lowest position with alarm on. Will continue to monitor.
[2019-06-11 04:33] LABS: CALCIUM 8.5 mg/dL (8.5-10.1); CREATININE 1.2 mg/dL (0.7-1.3); POTASSIUM 3.6 mmol/L (3.5-5.1)
--- NOTE | 2019-06-11 05:11 | EKG ---
[facility] [address] [place] [address] Test Date: 2019-06-10 Test Time: 19:11:15 Pat Name: FRANK VAUGHN Department: Room: 412 1 Gender: M Hot Box Checker: : [id number] Requested By: ADRIAN DANIELS Order Number: [id number] Reading MD: Goran Larson MD Measurements Intervals [place] Rate: 91 P: OR: QRS: 138 QRSD: 104 T: -26 QT: 406 QTc: 501 Interpretive Statements ATRIAL FIBRILLATION VENTRICULAR PREMATURE COMPLEX(ES) RBBB RAD Electronically Signed On 06-11-2019 15:06:43 HR ADMINISTRATOR by Goran Larson MD
[2019-06-11 07:00] VITALS: BP 127/64
[2019-06-11] MEDS: MAGNESIUM OXIDE 400 MG TABLET PO SCH ×2 (08:20→21:08)
[2019-06-11] MEDS: OSELTAMIVIR 30 MG CAPSULE PO SCH (08:20)
[2019-06-11 11:00] VITALS: BP 140/56
--- NOTE | 2019-06-11 11:01 | HP ---
ADMIT DATE: 06/10/2019 CHIEF COMPLAINT: Fevers and weakness. 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 Basically, he went to the doctor's office yesterday, got some doxycycline and was sent home. He just did not do well. He developed a fever. He is weak, so his , who works here as a volunteer, called the ambulance. They brought him into the ER. While in the ER, he is noted to be septic with a high lactic acid of 2.7, his fever was 103.6, his respiratory rate was 22 and his pulse was high above 90. Basically, he has been admitted with sepsis. Of incidental note, he was also hypomagnesemic and he had some kidney failure with a creatinine of 1.5. He is also anemic with hemoglobin of 12. His INR is 1.7, but he is on blood thinners. CT of the chest is showing a possible left-sided pneumonia. Overall, the patient is now on the medical floor where he is being examined with his present. She is good support for him. PAST MEDICAL HISTORY: Diabetes, hypertension, coronary artery disease, eye cancer, prostate cancer, angioplasty, coronary artery bypass grafting, AICD defibrillator, prostatectomy, left eye surgery, cardiac stents. He has also had to have his defibrillator replaced actually. Previous pneumonia, previous UTIs. ALLERGIES: MILK, SULFA, and DAIRY PRODUCTS. FAMILY HISTORY: Coronary artery disease in the family. SOCIAL HISTORY: He is retired. His works here as a volunteer. He does not drink, smoke or take drugs. 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 MEDICATIONS: He is on 17 home medications including Claritin, Flomax, iron, Eliquis, Plavix, amiodarone, atorvastatin, metoprolol, fluticasone, magnesium oxide, Colace, MiraLax, ranitidine, metformin, vitamins and melatonin. REVIEW OF SYSTEMS: GENERAL: He complains of weakness. SKIN: No bruising, hair changes or rashes. EYES: No blurred, double or loss of vision. NOSE AND THROAT: No history of nosebleeds, hoarseness or sore throat. HEART: No history of palpitations, chest pain or shortness of breath on exertion. LUNGS: Denies cough, hemoptysis, wheezing or shortness of breath. GASTROINTESTINAL: Denies changes in appetite, nausea, vomiting, diarrhea or constipation. GENITOURINARY: No history of frequency, urgency, hesitancy or nocturia. NEUROLOGIC: Denies history of numbness, tingling, tremor or weakness. PSYCHIATRIC: No history of panic, anxiety or depression. ENDOCRINE: No history of heat or cold intolerance, polyuria or polydipsia. EXTREMITIES: Denies muscle weakness, joint pain, pain on walking or stiffness. PHYSICAL EXAMINATION: VITAL SIGNS: Currently, his temperature is back down to normal at 97.6, but again, he was as high as 103.6, pulse currently at 88, but his highest pulse was 120, respirations currently at 18, but he was as high as 21, blood pressure currently at 127/64, his highest was 160/90. GENERAL: No apparent distress. Alert and oriented. HEENT: Normal cephalic atraumatic, external auditory canals are patent EYES: Extraocular muscles are intact, pupils are equally round and reactive to light and accommodation MUSKULOSKELETAL: Well developed, well nourished, good range of motion ENDOCRINE: No thyromegaly was palpated LYMPHATICS: No cervical chain or axillary nodes were noted HEMATOPOIETIC: No bruising NECK: Supple, no JVD, no thyromegaly was noted. LUNGS: Clear to auscultation in all lung go without rhonchi or wheezing. HEART: RRR, S1, S2 present. Peripheral pulses intact, no obvious murmurs were noted. ABDOMEN: Soft, nontender. Positive bowel sounds no organomegaly, normal bowel sounds. EXTREMITIES: Without any cyanosis, clubbing. Pedal pulses intact, Homans sign is negative. Trace edema. NEUROLOGIC: He is alert and oriented, but very weak. PSYCHIATRIC: Normal affect, normal mood. Stable. SKIN: No ulcerations or rashes, good skin turgor, no jaundice. VASCULAR: Good capillary refill, neurovascular bundle appears to be intact. IMAGING DATA: CT of the chest shows a possible pneumonia in the left base. I will be consulting Dr. Felder for a second opinion regarding that. CT of the head was surprisingly normal other than some small vessel disease. Chest x-ray did not show any acute changes. LABORATORY DATA: White count 9, hemoglobin 12, and platelets 141. Electrolytes: Sodium 137, potassium 3.6, chloride 103, bicarb 24, BUN 17, creatinine 1.2. Previous BUN was as high as 24 and his creatinine was 1.5 last night. Glucose is 122. ASSESSMENT AND PLAN: Fevers, severe sepsis, hypomagnesemia, anemia, acute kidney injury, and chronic anticoagulation in an elderly male with the above noted comorbidities. For now, I am going to get his home meds going. We gave him IV fluids, IV antibiotics. Consult Infectious Disease, consult Pulmonary Medicine. Deep venous thrombosis prophylaxis. He is DO NOT RESUSCITATE. We will consider breathing treatments and oxygen if Pulmonary agrees. Clear liquid diet, p.r.n. Zofran, p.r.n. fentanyl. RAFAEL OROPEZA DO DR: LINDA/mustapha JOB#: [id number] / [id number] ADRIAN Sheffield MD
[2019-06-11] MEDS: POLYETHYLENE GLYCOL 3350 17 GM PACKET. PO SCH ×2 (12:00→12:47)
--- NOTE | 2019-06-11 12:45 | NUR ---
SW following for discharge planning. Chart reviewed, discussed with RN, pt is from home with , gets around fine. RN advised no SW needs at this time. SW will continue to follow.
[2019-06-11] MEDS: CLOPIDOGREL BISULFATE 75 MG TABLET PO SCH (12:47)
--- NOTE | 2019-06-11 12:47 | PDOC ---
Infectious Disease Note Vital Sign Vital Signs Vital Signs Date Time Temp Pulse Resp B/P (MAP) Pulse Ox O2 Delivery O2 Flow Rate FiO2 06/11/19 08:00 Room Air 06/11/19 07:00 97.6 88 18 127/64 (85) 93 97.6 Labs Lab Laboratory Tests Test 06/10/19 17:12 06/10/19 17:17 06/10/19 18:08 06/10/19 20:28 Influenza Type A Antigen Negative (NEGATIVE) Influenza Type B Antigen Negative (NEGATIVE) White Blood Count 9.2 x10^3/uL (4.0-11.0) Red Blood Count 4.41 x10^6/uL (4.30-5.70) Hemoglobin 12.0 g/dL (13.0-17.5) Hematocrit 37.1 % (39.0-53.0) Mean Corpuscular Volume 84 fL (79-100) Mean Corpuscular Hemoglobin 27 pg (25-35) Mean Corpuscular Hemoglobin Concent 32 g/dL (31-37) Red Cell Distribution Width 16.3 % (11.5-14.5) Platelet Count 141 x10^3/uL (140-400) Neutrophils (%) (Auto) 87 % (31-73) Lymphocytes (%) (Auto) 4 % (24-48) Monocytes (%) (Auto) 9 % (0-9) Eosinophils (%) (Auto) 0 % (0-3) Basophils (%) (Auto) 0 % (0-3) Neutrophils # (Auto) 8.0 x10^3/uL (1.8-7.7) Lymphocytes # (Auto) 0.4 x10^3/uL (1.0-4.8) Monocytes # (Auto) 0.8 x10^3/uL (0.0-1.1) Eosinophils # (Auto) 0.0 x10^3/uL (0.0-0.7) Basophils # (Auto) 0.0 x10^3/uL (0.0-0.2) Segmented Neutrophils % 66 % (35-66) Band Neutrophils % 19 % (0-9) Lymphocytes % 6 % (24-48) Atypical Lymphocytes % (Manual) 2 % (0-0) Monocytes % 7 % (0-10) Platelet Estimate Adequate (ADEQUATE) Anisocytosis Slight Prothrombin Time 19.5 SEC (11.7-14.0) Prothromb Time International Ratio 1.7 (0.8-1.1) Activated Partial Thromboplast Time 39 SEC (24-38) Sodium Level 134 mmol/L (136-145) Potassium Level 4.3 mmol/L (3.5-5.1) Chloride Level 97 mmol/L (98-107) Carbon Dioxide Level 25 mmol/L (21-32) Anion Gap 12 (6-14) Blood Urea Nitrogen 24 mg/dL (8-26) Creatinine 1.5 mg/dL (0.7-1.3) Estimated GFR (Cockcroft-Gault) 44.8 BUN/Creatinine Ratio 16 (6-20) Glucose Level 156 mg/dL (70-99) Lactic Acid Level 2.7 mmol/L (0.4-2.0) 1.2 mmol/L (0.4-2.0) Calcium Level 9.0 mg/dL (8.5-10.1) Magnesium Level 1.7 mg/dL (1.8-2.4) Total Bilirubin 0.7 mg/dL (0.2-1.0) Aspartate Amino Transf (AST/SGOT) 40 U/L (15-37) Alanine Aminotransferase (ALT/SGPT) 35 U/L (16-63) Alkaline Phosphatase 65 U/L (46-116) Troponin I Quantitative < 0.017 ng/mL (0.000-0.055) Total Protein 7.6 g/dL (6.4-8.2) Albumin 3.5 g/dL (3.4-5.0) Albumin/Globulin Ratio 0.9 (1.0-1.7) Procalcitonin < 0.10 ng/mL (0.00-0.10) Urine Collection Type Unknown Urine Color Yellow Urine Clarity Clear Urine pH 5.5 Urine Specific [place] 1.020 Urine Protein 30 mg/dL (NEG-TRACE) Urine Glucose (UA) Negative mg/dL (NEG) Urine Ketones (Stick) Negative mg/dL (NEG) Urine Blood Small (NEG) Urine Nitrite Negative (NEG) Urine Bilirubin Negative (NEG) Urine Urobilinogen Dipstick 0.2 mg/dL (0.2 mg/dL) Urine Leukocyte Esterase Negative (NEG) Urine RBC 1-2 /HPF (0-2) Urine WBC 0 /HPF (0-4) Urine Squamous Epithelial Cells Few /LPF Urine Bacteria 0 /HPF (0-FEW) Urine Mucus Mod /LPF Test 06/10/19 21:28 06/11/19 03:15 06/11/19 07:54 06/11/19 11:42 Glucose (Fingerstick) 149 mg/dL (70-99) 122 mg/dL (70-99) 113 mg/dL (70-99) Sodium Level 137 mmol/L (136-145) Potassium Level 3.6 mmol/L (3.5-5.1) Chloride Level 103 mmol/L (98-107) Carbon Dioxide Level 24 mmol/L (21-32) Anion Gap 10 (6-14) Blood Urea Nitrogen 17 mg/dL (8-26) Creatinine 1.2 mg/dL (0.7-1.3) Estimated GFR (Cockcroft-Gault) 58.0 Glucose Level 123 mg/dL (70-99) Calcium Level 8.5 mg/dL (8.5-10.1) Objective Assessment pt seen, consult dictated Plan Plan of Care / HILARY CHAIREZ MD Jun 11, 2019 12:47
[2019-06-11] MEDS: APIXABAN 5 MG TABLET. PO SCH ×2 (12:48→21:08)
[2019-06-11] MEDS: AMIODARONE HCL 200 MG TABLET. PO SCH ×2 (12:48→21:08)
[2019-06-11] MEDS: FAMOTIDINE 20 MG TABLET. PO SCH ×2 (12:48→21:09)
[2019-06-11] MEDS: DOCUSATE SODIUM 100 MG CAPSULE. PO SCH ×2 (12:49→21:08)
[2019-06-11] MEDS: METOPROLOL SUCC 24HR ER 25 MG TAB.ER.24H. PO SCH (12:49)
--- NOTE | 2019-06-11 13:34 | CONS ---
DATE OF CONSULTATION: 06/11/2019 PULMONARY CONSULTATION ATTENDING PHYSICIAN: Dr. Reeves. REASON FOR CONSULTATION: Pneumonia. HISTORY OF PRESENT ILLNESS: The patient is an 84-year-old who has no significant tobacco history. 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 He presented to his PCP with fever of 103 and received some doxycycline. The patient was feeling weak. He went to [facility] and was very weak. The called the ambulance. He was brought into the hospital as he had a fever of 103.6 and his respirations were 22 with a pulse of 90. His lactic acid was 2.7. The patient underwent imaging study and I had reviewed his CT chest, abdomen and pelvis report. I have personally reviewed the CT chest. He has a left lower lobe infiltrate, which is a new finding compared to his CT from 2018. There was no other source of infection identified in the abdomen or pelvis. The patient's fever pattern is improving. His T-max is 100.1 yesterday and now he is afebrile. The patient received doxycycline and Rocephin. Infectious Disease has also been consulted. He denies any headaches, no nausea, no vomiting, no diarrhea. No dysuria, no focal weakness. No skin rash. PAST MEDICAL HISTORY: Significant for history of diabetes, hypertension, coronary artery disease, eye cancers, prostate cancer, angioplasty, coronary artery bypass grafting, AICD defibrillator, prostatectomy, cardiac stents. PAST SURGICAL HISTORY: As discussed above. ALLERGIES: MILK, SULFA AND DAIRY PRODUCTS. FAMILY HISTORY: Coronary artery disease. 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 He does not smoke. MEDICATIONS: Reviewed as listed in the MRAD. REVIEW OF SYSTEMS: A 12-point system review obtained. Pertinent positives discussed in my history of present illness, otherwise noncontributory. All systems that were negative were reviewed as well. PHYSICAL EXAMINATION: VITAL SIGNS: Reviewed. T-max of 100.1 last night and on admission was 103.6. His blood pressure is stable. Pulse ox 96% on room air. NECK: Supple, no JVD. LUNGS: With crackles, left base. CARDIOVASCULAR: With a regular rate. ABDOMEN: Soft, nontender. EXTREMITIES: With no pitting edema. LABORATORY DATA: Reviewed. His Influenza screen negative. White cell count 9.2, hemoglobin 12.0, platelets are 141. BUN 17, creatinine 1.2. IMPRESSION: 1. Dyspnea secondary to early sepsis. His lactic acid was 2.7 on admission. 2. High-grade fever with left lower lobe infiltrate seen on the CT chest and crackles on examination. The findings are consistent with pneumonia, could be either viral versus bacterial. As the states that he did have a cough with some yellow-green sputum. 3. No significant tobacco history. RECOMMENDATIONS: 1. Continue with present antibiotics. Infectious Disease has been consulted and we will follow their recommendation. 2. The patient was also started on Tamiflu and that is okay from a pulmonary standpoint. 3. P.r.n. bronchodilators. 4. The patient is on chronic Eliquis. 5. Follow the response to treatment and fever pattern will be monitored closely. 6. If patient remains afebrile for the next 24 hours, he could be discharged in the next 24-48 hours[address] with [address]. Floyd Hays. Discussed with the patient's and will follow along with you. TATYANA RICE MD DR: LILIA/mustapha JOB#: [id number] / [id number]
[2019-06-11] MEDS ORDERED: OSELTAMIVIR 30 MG CAPSULE PO SCH (14:00)
--- NOTE | 2019-06-11 14:18 | PDOC2 ---
NEUROLOGY CONSULT Date of Admission Date of Admission DATE: 06/11/19 TIME: 14:09 Reason for Consult Reason for Consult: weakness Referring Physician Referring Physician: Dr. Reeves PCP: Dr. Josue Source Source: Caregiver (), Chart review, Patient History of Present Illness History of Present Illness The patient is an 84-year-old right-handed male who started feeling weak as long ago as last week. He and his like to walk around [facility]. He has used a push cart to keep himself steady for a long time. He could barely take steps. Yesterday he went to his primary care physician with a fever of 103. Temperature was normal at the office, but the patient was still sent 10. He was found to have evidence of pneumonia, sepsis, and lactic acidosis. There is no history of stroke, seizure, head injury, spine injury, neck pain, or back pain Past Medical History Cardiovascular: AFIB, CAD, HTN, IN GI: GERD Musculoskeletal: Osteoarthritis ENT: Other (bilateral hearing aids) Renal/: Prostate Ca. Endocrine: Diabetes Past Surgical History Past Surgical History: Pacemaker (/defibrillator), Cataract Removal, Other (coronary stent, right leg fracture) Family History Family History: CAD Social History Social History , ex-smoker, no alcohol, retired Current Medications Current Medications Current Medications Sodium Chloride 1,000 ml @ 1,000 mls/hr 1X STAT IV Last administered on 06/10/19at 17:46; Start 06/10/19 at 17:22; Stop 06/10/19 at 18:21; Status DC Ceftriaxone Sodium (Rocephin) 1 gm 1X STAT IVP Last administered on 06/10/19at 19:30; Start 06/10/19 at 18:43; Stop 06/10/19 at 18:45; Status DC Sodium Chloride 1,000 ml @ 1,000 mls/hr 1X STAT IV Last administered on 06/10/19at 19:31; Start 06/10/19 at 19:05; Stop 06/10/19 at 20:04; Status DC Oseltamivir Phosphate (Tamiflu) 30 mg BID PO Last administered on 06/11/19at 08:20; Start 06/10/19 at 20:00; Stop 06/11/19 at 12:56; Status DC Magnesium Sulfate/ Dextrose 100 ml @ 100 mls/hr 1X STAT IV Last administered on 06/10/19at 20:28; Start 06/10/19 at 19:07; Stop 06/10/19 at 20:06; Status DC Ondansetron HCl (Zofran) 4 mg PRN Q8HRS PRN IV NAUSEA/VOMITING; Start 06/10/19 at 19:15; Stop 06/11/19 at 19:14 Fentanyl Citrate (Fentanyl 2ml Vial) 50 mcg PRN Q1HR PRN IV PAIN; Start 06/10/19 at 19:15; Stop 06/11/19 at 19:14 Acetaminophen (Tylenol) 650 mg PRN Q4HRS PRN PO FEVER Last administered on 06/11/19at 00:42; Start 06/10/19 at 19:15; Stop 06/11/19 at 19:14 Aspirin (Ecotrin) 325 mg DAILY16 PO ; Start 06/11/19 at 16:00 Atorvastatin Calcium (Lipitor) 20 mg DAILY16 PO ; Start 06/11/19 at 16:00 Magnesium Oxide (Magnesium Oxide) 400 mg BID PO Last administered on 06/11/19at 08:20; Start 06/11/19 at 09:00 Tamsulosin HCl (Flomax) 0.4 mg QHS PO Last administered on 06/10/19at 22:40; Start 06/10/19 at 22:00 Doxycycline Hyclate 100 mg/ Dextrose 100 ml @ 50 mls/hr 1X ONCE IV Last administered on 06/10/19at 23:35; Start 06/10/19 at 23:45; Stop 06/11/19 at 01:44; Status DC Amiodarone HCl (Cordarone) 400 mg BID PO Last administered on 06/11/19at 12:48; Start 06/11/19 at 12:00 Apixaban (Eliquis) 5 mg BID PO Last administered on 06/11/19at 12:48; Start 06/11/19 at 12:00 Atorvastatin Calcium (Lipitor) 40 mg QHS PO ; Start 06/11/19 at 21:00 Clopidogrel Bisulfate (Plavix) 75 mg DAILY PO Last administered on 06/11/19at 12:47; Start 06/11/19 at 12:00 Docusate Sodium (Colace) 100 mg BID PO Last administered on 06/11/19at 12:49; Start 06/11/19 at 12:00 Ferrous Sulfate (Feosol) 325 mg DAILY PO ; Start 06/12/19 at 09:00 Metoprolol Succinate (Toprol Xl) 25 mg DAILY PO Last administered on 06/11/19at 12:49; Start 06/11/19 at 12:00 Polyethylene Glycol (miraLAX PACKET) 17 gm DAILY PO ; Start 06/11/19 at 12:00 Fluticasone Propionate (Flonase) 2 spray DAILY NS ; Start 06/12/19 at 09:00 Multivitamins (Thera M Plus) 1 tab DAILY PO ; Start 06/12/19 at 09:00 Non-Formulary Medication (Loratadine (Claritin)) 1 cap DAILY PO ; Start 06/12/19 at 09:00; Status UNV Non-Formulary Medication (Multivits-Min/ Fa/Lycopene/Lut (Centrum Silver Tablet)) 1 tab DAILY .ROUTE ; Start 06/12/19 at 09:00; Status UNV Famotidine (Pepcid) 20 mg BID PO Last administered on 06/11/19at 12:48; Start 06/11/19 at 12:00 Non-Formulary Medication ([melatonin] ) 10 mg QHS PO ; Start 06/11/19 at 21:00; Status UNV Ceftriaxone Sodium (Rocephin) 1 gm Q24H IVP ; Start 06/11/19 at 18:00 Doxycycline Hyclate (Vibra-Tab) 100 mg BID PO ; Start 06/11/19 at 13:30 Oseltamivir Phosphate (Tamiflu) 75 mg BID PO ; Start 06/11/19 at 14:00; Stop 06/15/19 at 13:59 Active Scripts Active Amiodarone Hcl 200 Mg Tablet 400 Mg PO BID 30 Days Flomax (Tamsulosin Hcl) 0.4 Mg Cap.er.24h 0.4 Mg PO QHS 30 Days Mag-Oxide (Magnesium Oxide) 400 Mg Tablet 400 Mg PO BID 30 Days Reported Eliquis (Apixaban) 5 Mg Tablet 5 Mg PO BID Claritin (Loratadine) 10 Mg Capsule 1 Cap PO DAILY 30 Days Miralax (Polyethylene Glycol 3350) 17 Gm Powd.pack 1 Packet PO DAILY 2 Days dissolve in water Colace (Docusate Sodium) 100 Mg Capsule 1 Cap PO BID 30 Days Flonase Allergy Relief (Fluticasone Propionate) 9.9 Ml Leon.susp 2 Sprays NS DAILY Clopidogrel (Clopidogrel Bisulfate) 75 Mg Tablet 1 Tab PO DAILY Ranitidine Hcl 150 Mg Capsule 1 Cap PO BID Atorvastatin Calcium 40 Mg Tablet 1 Tab PO DAILY Ferrous Sulfate 325 Mg Tablet 1 Tab PO DAILY Centrum Silver Chewable Tablet (Folic Acid/Multivits-Min/Lut) 1 Each Tab.chew 1 Each PO ONCE Metoprolol Succinate ( Xl ) (Metoprolol Succinate) 25 Mg Tab.er.24h 1 Tab PO DAILY [melatonin] 10 Mg PO QHS Centrum Silver Tablet (Multivits-Min/Fa/Lycopene/Lut) 1 Each Tablet 1 Tab DAILY Metformin Hcl 500 Mg Tablet 1 Tab BIDBFRMEAL Allergies Allergies: Coded Allergies: Milk Containing Products (Verified Allergy, Intermediate, 06/10/19) Sulfa (Sulfonamide Antibiotics) (Verified Allergy, Mild, 06/11/19) ROS Review of System Negative for fever, chills, weight loss, shortness of breath, chest pain, indigestion, hematochezia, melena, and dysuria. Full 14-point review of systems is negative. Physical Exam Physical Examination General: Well-developed, well-nourished white male in no acute distress HEENT: Normocephalic andatraumatic. Temporal arteriespulsatile and nontender. Neck: Supple without bruit, no meningismus Musculoskeletal: Stability:see neurologic. Gait exam:see neurologic. Tone:see neurologic.Strength:see neurologic. Neurological: Mental Status:intact, orientation, memory, attention span/concentration, language, fund of knowledge normal. Cranial Nerves:Pupils equal and reactive to light, extraocular movements areintact, visual go are full to confrontation. Facial sensation is normal. There is no facial asymmetry. Vestibulo-ocular reflex is intact. Palate elevates and tongue protrudes in midline. All other cranial related problems are negative except as mentioned before.Reflexes:1+ and symmetric with flexor plantar responses. Motor:5/5 strength with normal tone and bulk. Coordination:Finger-nose finger and dmxp-[id number] testing are normal. Rapid alternating movements and fine finger movements are intact. Gait:Does well with walker. Sensory:Stocking loss Vitals VITALS Vital Signs Date Time Temp Pulse Resp B/P (MAP) Pulse Ox O2 Delivery O2 Flow Rate FiO2 06/11/19 12:49 93 140/56 06/11/19 11:00 97.7 18 94 Room Air 97.7 Labs Labs Laboratory Tests Test 06/10/19 17:12 06/10/19 17:17 06/10/19 18:08 06/10/19 20:28 Influenza Type A Antigen Negative (NEGATIVE) Influenza Type B Antigen Negative (NEGATIVE) White Blood Count 9.2 x10^3/uL (4.0-11.0) Red Blood Count 4.41 x10^6/uL (4.30-5.70) Hemoglobin 12.0 g/dL (13.0-17.5) Hematocrit 37.1 % (39.0-53.0) Mean Corpuscular Volume 84 fL (79-100) Mean Corpuscular Hemoglobin 27 pg (25-35) Mean Corpuscular Hemoglobin Concent 32 g/dL (31-37) Red Cell Distribution Width 16.3 % (11.5-14.5) Platelet Count 141 x10^3/uL (140-400) Neutrophils (%) (Auto) 87 % (31-73) Lymphocytes (%) (Auto) 4 % (24-48) Monocytes (%) (Auto) 9 % (0-9) Eosinophils (%) (Auto) 0 % (0-3) Basophils (%) (Auto) 0 % (0-3) Neutrophils # (Auto) 8.0 x10^3/uL (1.8-7.7) Lymphocytes # (Auto) 0.4 x10^3/uL (1.0-4.8) Monocytes # (Auto) 0.8 x10^3/uL (0.0-1.1) Eosinophils # (Auto) 0.0 x10^3/uL (0.0-0.7) Basophils # (Auto) 0.0 x10^3/uL (0.0-0.2) Segmented Neutrophils % 66 % (35-66) Band Neutrophils % 19 % (0-9) Lymphocytes % 6 % (24-48) Atypical Lymphocytes % (Manual) 2 % (0-0) Monocytes % 7 % (0-10) Platelet Estimate Adequate (ADEQUATE) Anisocytosis Slight Prothrombin Time 19.5 SEC (11.7-14.0) Prothromb Time International Ratio 1.7 (0.8-1.1) Activated Partial Thromboplast Time 39 SEC (24-38) Sodium Level 134 mmol/L (136-145) Potassium Level 4.3 mmol/L (3.5-5.1) Chloride Level 97 mmol/L (98-107) Carbon Dioxide Level 25 mmol/L (21-32) Anion Gap 12 (6-14) Blood Urea Nitrogen 24 mg/dL (8-26) Creatinine 1.5 mg/dL (0.7-1.3) Estimated GFR (Cockcroft-Gault) 44.8 BUN/Creatinine Ratio 16 (6-20) Glucose Level 156 mg/dL (70-99) Lactic Acid Level 2.7 mmol/L (0.4-2.0) 1.2 mmol/L (0.4-2.0) Calcium Level 9.0 mg/dL (8.5-10.1) Magnesium Level 1.7 mg/dL (1.8-2.4) Total Bilirubin 0.7 mg/dL (0.2-1.0) Aspartate Amino Transf (AST/SGOT) 40 U/L (15-37) Alanine Aminotransferase (ALT/SGPT) 35 U/L (16-63) Alkaline Phosphatase 65 U/L (46-116) Troponin I Quantitative < 0.017 ng/mL (0.000-0.055) Total Protein 7.6 g/dL (6.4-8.2) Albumin 3.5 g/dL (3.4-5.0) Albumin/Globulin Ratio 0.9 (1.0-1.7) Procalcitonin < 0.10 ng/mL (0.00-0.10) Urine Collection Type Unknown Urine Color Yellow Urine Clarity Clear Urine pH 5.5 Urine Specific [place] 1.020 Urine Protein 30 mg/dL (NEG-TRACE) Urine Glucose (UA) Negative mg/dL (NEG) Urine Ketones (Stick) Negative mg/dL (NEG) Urine Blood Small (NEG) Urine Nitrite Negative (NEG) Urine Bilirubin Negative (NEG) Urine Urobilinogen Dipstick 0.2 mg/dL (0.2 mg/dL) Urine Leukocyte Esterase Negative (NEG) Urine RBC 1-2 /HPF (0-2) Urine WBC 0 /HPF (0-4) Urine Squamous Epithelial Cells Few /LPF Urine Bacteria 0 /HPF (0-FEW) Urine Mucus Mod /LPF Test 06/10/19 21:28 06/11/19 03:15 06/11/19 07:54 06/11/19 11:42 Glucose (Fingerstick) 149 mg/dL (70-99) 122 mg/dL (70-99) 113 mg/dL (70-99) Sodium Level 137 mmol/L (136-145) Potassium Level 3.6 mmol/L (3.5-5.1) Chloride Level 103 mmol/L (98-107) Carbon Dioxide Level 24 mmol/L (21-32) Anion Gap 10 (6-14) Blood Urea Nitrogen 17 mg/dL (8-26) Creatinine 1.2 mg/dL (0.7-1.3) Estimated GFR (Cockcroft-Gault) 58.0 Glucose Level 123 mg/dL (70-99) Calcium Level 8.5 mg/dL (8.5-10.1) Laboratory Tests Test 06/10/19 17:12 06/10/19 17:17 06/10/19 18:08 06/10/19 20:28 Influenza Type A Antigen Negative (NEGATIVE) Influenza Type B Antigen Negative (NEGATIVE) White Blood Count 9.2 x10^3/uL (4.0-11.0) Red Blood Count 4.41 x10^6/uL (4.30-5.70) Hemoglobin 12.0 g/dL (13.0-17.5) Hematocrit 37.1 % (39.0-53.0) Mean Corpuscular Volume 84 fL (79-100) Mean Corpuscular Hemoglobin 27 pg (25-35) Mean Corpuscular Hemoglobin Concent 32 g/dL (31-37) Red Cell Distribution Width 16.3 % (11.5-14.5) Platelet Count 141 x10^3/uL (140-400) Neutrophils (%) (Auto) 87 % (31-73) Lymphocytes (%) (Auto) 4 % (24-48) Monocytes (%) (Auto) 9 % (0-9) Eosinophils (%) (Auto) 0 % (0-3) Basophils (%) (Auto) 0 % (0-3) Neutrophils # (Auto) 8.0 x10^3/uL (1.8-7.7) Lymphocytes # (Auto) 0.4 x10^3/uL (1.0-4.8) Monocytes # (Auto) 0.8 x10^3/uL (0.0-1.1) Eosinophils # (Auto) 0.0 x10^3/uL (0.0-0.7) Basophils # (Auto) 0.0 x10^3/uL (0.0-0.2) Segmented Neutrophils % 66 % (35-66) Band Neutrophils % 19 % (0-9) Lymphocytes % 6 % (24-48) Atypical Lymphocytes % (Manual) 2 % (0-0) Monocytes % 7 % (0-10) Platelet Estimate Adequate (ADEQUATE) Anisocytosis Slight Prothrombin Time 19.5 SEC (11.7-14.0) Prothromb Time International Ratio 1.7 (0.8-1.1) Activated Partial Thromboplast Time 39 SEC (24-38) Sodium Level 134 mmol/L (136-145) Potassium Level 4.3 mmol/L (3.5-5.1) Chloride Level 97 mmol/L (98-107) Carbon Dioxide Level 25 mmol/L (21-32) Anion Gap 12 (6-14) Blood Urea Nitrogen 24 mg/dL (8-26) Creatinine 1.5 mg/dL (0.7-1.3) Estimated GFR (Cockcroft-Gault) 44.8 BUN/Creatinine Ratio 16 (6-20) Glucose Level 156 mg/dL (70-99) Lactic Acid Level 2.7 mmol/L (0.4-2.0) 1.2 mmol/L (0.4-2.0) Calcium Level 9.0 mg/dL (8.5-10.1) Magnesium Level 1.7 mg/dL (1.8-2.4) Total Bilirubin 0.7 mg/dL (0.2-1.0) Aspartate Amino Transf (AST/SGOT) 40 U/L (15-37) Alanine Aminotransferase (ALT/SGPT) 35 U/L (16-63) Alkaline Phosphatase 65 U/L (46-116) Troponin I Quantitative < 0.017 ng/mL (0.000-0.055) Total Protein 7.6 g/dL (6.4-8.2) Albumin 3.5 g/dL (3.4-5.0) Albumin/Globulin Ratio 0.9 (1.0-1.7) Procalcitonin < 0.10 ng/mL (0.00-0.10) Urine Collection Type Unknown Urine Color Yellow Urine Clarity Clear Urine pH 5.5 Urine Specific [place] 1.020 Urine Protein 30 mg/dL (NEG-TRACE) Urine Glucose (UA) Negative mg/dL (NEG) Urine Ketones (Stick) Negative mg/dL (NEG) Urine Blood Small (NEG) Urine Nitrite Negative (NEG) Urine Bilirubin Negative (NEG) Urine Urobilinogen Dipstick 0.2 mg/dL (0.2 mg/dL) Urine Leukocyte Esterase Negative (NEG) Urine RBC 1-2 /HPF (0-2) Urine WBC 0 /HPF (0-4) Urine Squamous Epithelial Cells Few /LPF Urine Bacteria 0 /HPF (0-FEW) Urine Mucus Mod /LPF Test 06/10/19 21:28 06/11/19 03:15 06/11/19 07:54 06/11/19 11:42 Glucose (Fingerstick) 149 mg/dL (70-99) 122 mg/dL (70-99) 113 mg/dL (70-99) Sodium Level 137 mmol/L (136-145) Potassium Level 3.6 mmol/L (3.5-5.1) Chloride Level 103 mmol/L (98-107) Carbon Dioxide Level 24 mmol/L (21-32) Anion Gap 10 (6-14) Blood Urea Nitrogen 17 mg/dL (8-26) Creatinine 1.2 mg/dL (0.7-1.3) Estimated GFR (Cockcroft-Gault) 58.0 Glucose Level 123 mg/dL (70-99) Calcium Level 8.5 mg/dL (8.5-10.1) Images Images CT head INDICATION: Altered mental status TECHNIQUE: Sequential axial images through the head were obtained without the administration of IV contrast. Comparisons: None FINDINGS: No focal parenchymal lesion or hemorrhage is identified. There is no midline shift or sulcal effacement. Patchy hypodensity noted within the periventricular and subcortical white matter. No acute vascular territory infarction is identified. Walden-white distinction is preserved. The ventricular system is within normal limits without compression hydrocephalus. The basal cisterns are well maintained. The visualized portions of the paranasal sinuses and mastoid air cells are well-pneumatized. No acute fractures. IMPRESSION: Patchy hypodensities representing small vessel ischemic change, technically age indeterminate without prior imaging. If there are concerns for acute ischemia MRI is recommended. Assessment/Plan Assessment/Plan Impression: Gait disorder, resolved, probably related to early sepsis and pneumonia, no evidence of stroke, myelopathy, radiculopathy, or other central nervous system issue. 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 Hypomagnesemia, anemia, acute kidney injury, and chronic anticoagulation for atrial fibrillation, patient also on aspirin Recommendations: Lab studies for other causes of neuropathy Rehabilitation modalities Treatment of the sepsis and pneumonia, note plans to discharge if he remains afebrile another day or 2. I agree with that. Fully discussed with patient and his . Thank you for letting me help with the patient's care. YAMINI MIRELES MD Jun 11, 2019 14:18
--- NOTE | 2019-06-11 14:28 | CONS ---
DATE OF CONSULTATION: 06/11/2019 REQUESTING PHYSICIAN: Dr. Reeves. REASON FOR CONSULTATION: Pneumonia. HISTORY OF PRESENT ILLNESS: This is an 84-year-old gentleman who came in with cough, shortness of breath and fever started about Monday, he says. The patient went to the urgent care and was started on doxycycline. He may have taken one or two doses and he ended up in the hospital. The patient has had 103.[address] scan of the chest, abdomen and pelvis showed left lung base pneumonia. The patient denies any nausea, vomiting, diarrhea. Denies any chest pain, shortness of breath, abdominal pain, urinary symptoms or bowel symptoms. PAST MEDICAL HISTORY: Positive for coronary artery disease, coronary artery bypass surgery, pacemaker in place, diabetes, hypertension, prostate cancer, eye cancer with surgery done on the eye, prostatectomy. He does have defibrillator in place. SOCIAL HISTORY: Negative for smoking, alcohol or illicit drug use. The patient has a grandkid at home, who had been sick recently and his mother was also sick recently. CURRENT MEDICATIONS: Reviewed. REVIEW OF SYSTEMS: As per HPI, all other systems reviewed are negative. PHYSICAL EXAMINATION: GENERAL: Alert, oriented gentleman, not in distress. VITAL SIGNS: Stable with a T-max 103.6, pulse 96, respirations 18, blood pressure 127/64. HEENT: Both pupils are round and reacting. No conjunctival lesion, no lesion in the mouth. NECK: Supple, no JVP, no lymphadenopathy. LUNGS: Clear. HEART: S1, S2 regular. ABDOMEN: Benign. EXTREMITIES: No edema, cyanosis. SKIN: Unremarkable. NEUROLOGIC: The patient is neurologically alert, awake and appropriate. No focal neurologic deficit. LABORATORY DATA: White count is 9.2, hemoglobin 12.0, platelets of 141,000. BUN and creatinine are 24 and 1.5, which has improved to 1.2. Lactic acid was 2.7, which is improved to 1.2. Urinalysis unremarkable. Influenza screen is negative. Chest x-ray was unremarkable. CT showed pneumonia. Head CT is unremarkable. IMPRESSION: 1. Community-acquired pneumonia. 2. Fever. 3. Acute kidney injury, which improved. 4. Coronary artery disease. 5. Hypertension. RECOMMENDATIONS: Would use Rocephin, doxycycline, and Tamiflu. check cultures supportive care d/w Thank you very much, Dr. Reeves, for giving me the opportunity to participate in this patient's care. HILARY CHAIREZ MD DR: LYNDA/mustapha JOB#: [id number] / [id number] EMIGDIO
[2019-06-11 15:00] VITALS: BP 123/62
[2019-06-11] MEDS: DOXYCYCLINE HYCLATE 100 MG TABLET PO SCH ×2 (15:14→15:18)
[2019-06-11] MEDS ORDERED: ASPIRIN ENTERIC COATED 325 MG TABLET.DR. PO SCH (16:00)
[2019-06-11] MEDS ORDERED: ATORVASTATIN CALCIUM 20 MG TABLET PO SCH (16:00)
[2019-06-11] MEDS ORDERED: cefTRIAXone IV Push 1 GM VIAL. IVP SCH (18:00)
[2019-06-11] MEDS ORDERED: ANTI-COAG MONITOR BY PHARMACY. MC PRN (18:00)
[2019-06-11 19:48] VITALS: BP 111/48
[2019-06-11] MEDS ORDERED: MELATONIN 10 MG PO SCH (21:00)
[2019-06-11] MEDS ORDERED: ATORVASTATIN CALCIUM 40 MG TABLET. PO SCH (21:00)
[2019-06-11] MEDS: TAMSULOSIN 0.4 MG CAP.ER.24H. PO SCH (21:08)
[2019-06-11] MEDS: OSELTAMIVIR 75 MG CAPSULE PO SCH (21:08)
[2019-06-11 23:27] VITALS: BP 105/49
[2019-06-12 02:49] VITALS: BP 109/82
[2019-06-12 04:42] LABS: BASO % 1 % (0-3); EOS # 0.1 x10^3/uL (0.0-0.7); EOS % 3 % (0-3); HEMATOCRIT 33.5 % (39.0-53.0); HEMOGLOBIN 10.9 g/dL (13.0-17.5); LYMPH # 0.5 x10^3/uL (1.0-4.8); LYMPH % 11 % (24-48); MEAN CORPUSCULAR HEMOGLOBIN 28 pg (25-35); MEAN CORPUSCULAR HGB CONC 33 g/dL (31-37); MEAN CORPUSCULAR VOLUME 84 fL (79-100); MONO # 0.5 x10^3/uL (0.0-1.1); MONO % 11 % (0-9); NEUT # 3.4 x10^3/uL (1.8-7.7); NEUT % 75 % (31-73); PLATELET COUNT 106 x10^3/uL (140-400); RED BLOOD COUNT 3.97 x10^6/uL (4.30-5.70); WHITE BLOOD COUNT 4.6 x10^3/uL (4.0-11.0)
[2019-06-12 05:04] LABS: CALCIUM 8.7 mg/dL (8.5-10.1); CREATININE 1.3 mg/dL (0.7-1.3); GFR 52.9; POTASSIUM 3.7 mmol/L (3.5-5.1)
[2019-06-12 07:00] VITALS: BP 132/49
[2019-06-12] MEDS: FAMOTIDINE 20 MG TABLET. PO SCH (08:19)
[2019-06-12] MEDS: DOXYCYCLINE HYCLATE 100 MG TABLET PO SCH (08:19)
[2019-06-12] MEDS: CLOPIDOGREL BISULFATE 75 MG TABLET PO SCH (08:19)
[2019-06-12] MEDS: APIXABAN 5 MG TABLET. PO SCH (08:19)
[2019-06-12] MEDS: MAGNESIUM OXIDE 400 MG TABLET PO SCH (08:19)
[2019-06-12] MEDS: OSELTAMIVIR 75 MG CAPSULE PO SCH (08:20)
[2019-06-12] MEDS: METOPROLOL SUCC 24HR ER 25 MG TAB.ER.24H. PO SCH (08:20)
[2019-06-12] MEDS: DOCUSATE SODIUM 100 MG CAPSULE. PO SCH (08:20)
[2019-06-12] MEDS: AMIODARONE HCL 200 MG TABLET. PO SCH (08:21)
[2019-06-12] MEDS: POLYETHYLENE GLYCOL 3350 17 GM PACKET. PO SCH (08:21)
--- NOTE | 2019-06-12 08:56 | PDOC ---
Infectious Disease Note Subjective Subjective pt is feeling really good, walked a lot, no complaints, wants to go home ROS ROS no n/v/d/sob/fever Vital Sign Vital Signs Vital Signs Date Time Temp Pulse Resp B/P (MAP) Pulse Ox O2 Delivery O2 Flow Rate FiO2 06/12/19 08:21 57 132/49 06/12/19 07:00 97.7 16 95 Room Air 97.7 Physical Exam PHYSICAL EXAM GENERAL: Alert, oriented gentleman, not in distress. VITAL SIGNS: Stable HEENT: Both pupils are round and reacting. No conjunctival lesion, no lesion in the mouth. NECK: Supple, no JVP, no lymphadenopathy. LUNGS: Clear. HEART: S1, S2 regular. ABDOMEN: Benign. EXTREMITIES: No edema, cyanosis. SKIN: Unremarkable. NEUROLOGIC: The patient is neurologically alert, awake and appropriate. No focal neurologic deficit. Labs Lab Laboratory Tests Test 06/11/19 11:42 06/11/19 17:24 06/11/19 20:46 06/12/19 03:35 Glucose (Fingerstick) 113 mg/dL (70-99) 136 mg/dL (70-99) 117 mg/dL (70-99) White Blood Count 4.6 x10^3/uL (4.0-11.0) Red Blood Count 3.97 x10^6/uL (4.30-5.70) Hemoglobin 10.9 g/dL (13.0-17.5) Hematocrit 33.5 % (39.0-53.0) Mean Corpuscular Volume 84 fL (79-100) Mean Corpuscular Hemoglobin 28 pg (25-35) Mean Corpuscular Hemoglobin Concent 33 g/dL (31-37) Red Cell Distribution Width 16.0 % (11.5-14.5) Platelet Count 106 x10^3/uL (140-400) Neutrophils (%) (Auto) 75 % (31-73) Lymphocytes (%) (Auto) 11 % (24-48) Monocytes (%) (Auto) 11 % (0-9) Eosinophils (%) (Auto) 3 % (0-3) Basophils (%) (Auto) 1 % (0-3) Neutrophils # (Auto) 3.4 x10^3/uL (1.8-7.7) Lymphocytes # (Auto) 0.5 x10^3/uL (1.0-4.8) Monocytes # (Auto) 0.5 x10^3/uL (0.0-1.1) Eosinophils # (Auto) 0.1 x10^3/uL (0.0-0.7) Basophils # (Auto) 0.0 x10^3/uL (0.0-0.2) Erythrocyte Sedimentation Rate 40 (0-15) Sodium Level 142 mmol/L (136-145) Potassium Level 3.7 mmol/L (3.5-5.1) Chloride Level 106 mmol/L (98-107) Carbon Dioxide Level 27 mmol/L (21-32) Anion Gap 9 (6-14) Blood Urea Nitrogen 18 mg/dL (8-26) Creatinine 1.3 mg/dL (0.7-1.3) Estimated GFR (Cockcroft-Gault) 52.9 Glucose Level 101 mg/dL (70-99) Calcium Level 8.7 mg/dL (8.5-10.1) Test 06/12/19 07:35 Glucose (Fingerstick) 90 mg/dL (70-99) Micro Microbiology 06/10/19 Blood Culture - Preliminary, Resulted NO GROWTH AFTER 1 DAY Objective Assessment 1. Community-acquired pneumonia. 2. Fever. 3. Acute kidney injury, which improved. 4. Coronary artery disease. 5. Hypertension. Plan Plan of Care change antibiotics to po cedinir d/c home ok d/w HILARY CHAIREZ MD Jun 12, 2019 08:56
--- NOTE | 2019-06-12 08:59 | NUR ---
SW following. Chart reviewed, discussed with RN, pt is wanting to leave, gets around fine per RN. RN advised no SW needs at this time. SW will continue to follow should any discharge needs arise.
[2019-06-12] MEDS ORDERED: LORATADINE PO SCH (09:00)
[2019-06-12] MEDS ORDERED: MULTIVITS MIN SCH (09:00)
[2019-06-12] MEDS ORDERED: MULTIVITAMIN with MINERAL TABLET. PO SCH (09:00)
[2019-06-12] MEDS ORDERED: [UNRECOGNIZED DRUG - OTHER] SCH (09:00)
[2019-06-12] MEDS ORDERED: LYCOPENE SCH (09:00)
[2019-06-12] MEDS ORDERED: CEFDINIR 300 MG CAPSULE PO SCH (09:00)
[2019-06-12] MEDS ORDERED: LUT SCH (09:00)
[2019-06-12] MEDS ORDERED: FERROUS SULFATE 325 MG TABLET. PO SCH (09:00)
[2019-06-12] MEDS ORDERED: FLUTICASONE 50MCG/NASAL SPRAY 16GM BOTTLE. NS SCH (09:00)
--- NOTE | 2019-06-12 09:05 | PDOC ---
PROGRESS NOTES Assessment Problems Medical Problems: (1) MILES (acute kidney injury) Status: Acute (2) Sepsis Status: Acute Gait disorder, resolved, probably related to early sepsis and pneumonia, no evidence of stroke, myelopathy, radiculopathy, or other central nervous system issue. 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 Elevated ESR, recent sepsis an dpneumonia Hypomagnesemia, anemia, acute kidney injury, and chronic anticoagulation for atrial fibrillation, patient also on aspirin Plan Await studies for other causes of neuropathy Rehabilitation modalities Treatment of the sepsis and pneumonia Okay for discharge Follow up with me 6-8 wks Fully discussed with patient and his . Subjective feels better, afebrile, wants to go home Objective Vital Signs Date Time Temp Pulse Resp B/P (MAP) Pulse Ox O2 Delivery O2 Flow Rate FiO2 06/12/19 08:21 57 132/49 06/12/19 07:00 97.7 16 95 Room Air 97.7 Intake and Output 06/12/19 07:00 Intake Total 420 ml Balance 420 ml Intake Oral 420 ml # Voids 2 # Bowel Movements 1 PHYSICAL EXAM Alert. Oriented to time, place and person. Left eye prosthetic EOMI. CN: no focal findings. Muscle tone: normal. Muscle strength: 5/5 DTR: 1+ Plantar reflex: flexor Gait: not examined in bed. Sensory exam: tocking loss. No cerebellar signs elicited. Review of Relevant I have reviewed the following items ron (where applicable) has been applied. Labs Laboratory Tests Test 06/10/19 17:12 06/10/19 17:17 06/10/19 18:08 06/10/19 20:28 Influenza Type A Antigen Negative (NEGATIVE) Influenza Type B Antigen Negative (NEGATIVE) White Blood Count 9.2 x10^3/uL (4.0-11.0) Red Blood Count 4.41 x10^6/uL (4.30-5.70) Hemoglobin 12.0 g/dL (13.0-17.5) Hematocrit 37.1 % (39.0-53.0) Mean Corpuscular Volume 84 fL (79-100) Mean Corpuscular Hemoglobin 27 pg (25-35) Mean Corpuscular Hemoglobin Concent 32 g/dL (31-37) Red Cell Distribution Width 16.3 % (11.5-14.5) Platelet Count 141 x10^3/uL (140-400) Neutrophils (%) (Auto) 87 % (31-73) Lymphocytes (%) (Auto) 4 % (24-48) Monocytes (%) (Auto) 9 % (0-9) Eosinophils (%) (Auto) 0 % (0-3) Basophils (%) (Auto) 0 % (0-3) Neutrophils # (Auto) 8.0 x10^3/uL (1.8-7.7) Lymphocytes # (Auto) 0.4 x10^3/uL (1.0-4.8) Monocytes # (Auto) 0.8 x10^3/uL (0.0-1.1) Eosinophils # (Auto) 0.0 x10^3/uL (0.0-0.7) Basophils # (Auto) 0.0 x10^3/uL (0.0-0.2) Segmented Neutrophils % 66 % (35-66) Band Neutrophils % 19 % (0-9) Lymphocytes % 6 % (24-48) Atypical Lymphocytes % (Manual) 2 % (0-0) Monocytes % 7 % (0-10) Platelet Estimate Adequate (ADEQUATE) Anisocytosis Slight Prothrombin Time 19.5 SEC (11.7-14.0) Prothromb Time International Ratio 1.7 (0.8-1.1) Activated Partial Thromboplast Time 39 SEC (24-38) Sodium Level 134 mmol/L (136-145) Potassium Level 4.3 mmol/L (3.5-5.1) Chloride Level 97 mmol/L (98-107) Carbon Dioxide Level 25 mmol/L (21-32) Anion Gap 12 (6-14) Blood Urea Nitrogen 24 mg/dL (8-26) Creatinine 1.5 mg/dL (0.7-1.3) Estimated GFR (Cockcroft-Gault) 44.8 BUN/Creatinine Ratio 16 (6-20) Glucose Level 156 mg/dL (70-99) Lactic Acid Level 2.7 mmol/L (0.4-2.0) 1.2 mmol/L (0.4-2.0) Calcium Level 9.0 mg/dL (8.5-10.1) Magnesium Level 1.7 mg/dL (1.8-2.4) Total Bilirubin 0.7 mg/dL (0.2-1.0) Aspartate Amino Transf (AST/SGOT) 40 U/L (15-37) Alanine Aminotransferase (ALT/SGPT) 35 U/L (16-63) Alkaline Phosphatase 65 U/L (46-116) Troponin I Quantitative < 0.017 ng/mL (0.000-0.055) Total Protein 7.6 g/dL (6.4-8.2) Albumin 3.5 g/dL (3.4-5.0) Albumin/Globulin Ratio 0.9 (1.0-1.7) Procalcitonin < 0.10 ng/mL (0.00-0.10) Urine Collection Type Unknown Urine Color Yellow Urine Clarity Clear Urine pH 5.5 Urine Specific [place] 1.020 Urine Protein 30 mg/dL (NEG-TRACE) Urine Glucose (UA) Negative mg/dL (NEG) Urine Ketones (Stick) Negative mg/dL (NEG) Urine Blood Small (NEG) Urine Nitrite Negative (NEG) Urine Bilirubin Negative (NEG) Urine Urobilinogen Dipstick 0.2 mg/dL (0.2 mg/dL) Urine Leukocyte Esterase Negative (NEG) Urine RBC 1-2 /HPF (0-2) Urine WBC 0 /HPF (0-4) Urine Squamous Epithelial Cells Few /LPF Urine Bacteria 0 /HPF (0-FEW) Urine Mucus Mod /LPF Test 06/10/19 21:28 06/11/19 03:15 06/11/19 07:54 06/11/19 11:42 Glucose (Fingerstick) 149 mg/dL (70-99) 122 mg/dL (70-99) 113 mg/dL (70-99) Sodium Level 137 mmol/L (136-145) Potassium Level 3.6 mmol/L (3.5-5.1) Chloride Level 103 mmol/L (98-107) Carbon Dioxide Level 24 mmol/L (21-32) Anion Gap 10 (6-14) Blood Urea Nitrogen 17 mg/dL (8-26) Creatinine 1.2 mg/dL (0.7-1.3) Estimated GFR (Cockcroft-Gault) 58.0 Glucose Level 123 mg/dL (70-99) Calcium Level 8.5 mg/dL (8.5-10.1) Test 06/11/19 17:24 06/11/19 20:46 06/12/19 03:35 06/12/19 07:35 Glucose (Fingerstick) 136 mg/dL (70-99) 117 mg/dL (70-99) 90 mg/dL (70-99) White Blood Count 4.6 x10^3/uL (4.0-11.0) Red Blood Count 3.97 x10^6/uL (4.30-5.70) Hemoglobin 10.9 g/dL (13.0-17.5) Hematocrit 33.5 % (39.0-53.0) Mean Corpuscular Volume 84 fL (79-100) Mean Corpuscular Hemoglobin 28 pg (25-35) Mean Corpuscular Hemoglobin Concent 33 g/dL (31-37) Red Cell Distribution Width 16.0 % (11.5-14.5) Platelet Count 106 x10^3/uL (140-400) Neutrophils (%) (Auto) 75 % (31-73) Lymphocytes (%) (Auto) 11 % (24-48) Monocytes (%) (Auto) 11 % (0-9) Eosinophils (%) (Auto) 3 % (0-3) Basophils (%) (Auto) 1 % (0-3) Neutrophils # (Auto) 3.4 x10^3/uL (1.8-7.7) Lymphocytes # (Auto) 0.5 x10^3/uL (1.0-4.8) Monocytes # (Auto) 0.5 x10^3/uL (0.0-1.1) Eosinophils # (Auto) 0.1 x10^3/uL (0.0-0.7) Basophils # (Auto) 0.0 x10^3/uL (0.0-0.2) Erythrocyte Sedimentation Rate 40 (0-15) Sodium Level 142 mmol/L (136-145) Potassium Level 3.7 mmol/L (3.5-5.1) Chloride Level 106 mmol/L (98-107) Carbon Dioxide Level 27 mmol/L (21-32) Anion Gap 9 (6-14) Blood Urea Nitrogen 18 mg/dL (8-26) Creatinine 1.3 mg/dL (0.7-1.3) Estimated GFR (Cockcroft-Gault) 52.9 Glucose Level 101 mg/dL (70-99) Calcium Level 8.7 mg/dL (8.5-10.1) Laboratory Tests Test 06/11/19 11:42 06/11/19 17:24 06/11/19 20:46 06/12/19 03:35 Glucose (Fingerstick) 113 mg/dL (70-99) 136 mg/dL (70-99) 117 mg/dL (70-99) White Blood Count 4.6 x10^3/uL (4.0-11.0) Red Blood Count 3.97 x10^6/uL (4.30-5.70) Hemoglobin 10.9 g/dL (13.0-17.5) Hematocrit 33.5 % (39.0-53.0) Mean Corpuscular Volume 84 fL (79-100) Mean Corpuscular Hemoglobin 28 pg (25-35) Mean Corpuscular Hemoglobin Concent 33 g/dL (31-37) Red Cell Distribution Width 16.0 % (11.5-14.5) Platelet Count 106 x10^3/uL (140-400) Neutrophils (%) (Auto) 75 % (31-73) Lymphocytes (%) (Auto) 11 % (24-48) Monocytes (%) (Auto) 11 % (0-9) Eosinophils (%) (Auto) 3 % (0-3) Basophils (%) (Auto) 1 % (0-3) Neutrophils # (Auto) 3.4 x10^3/uL (1.8-7.7) Lymphocytes # (Auto) 0.5 x10^3/uL (1.0-4.8) Monocytes # (Auto) 0.5 x10^3/uL (0.0-1.1) Eosinophils # (Auto) 0.1 x10^3/uL (0.0-0.7) Basophils # (Auto) 0.0 x10^3/uL (0.0-0.2) Erythrocyte Sedimentation Rate 40 (0-15) Sodium Level 142 mmol/L (136-145) Potassium Level 3.7 mmol/L (3.5-5.1) Chloride Level 106 mmol/L (98-107) Carbon Dioxide Level 27 mmol/L (21-32) Anion Gap 9 (6-14) Blood Urea Nitrogen 18 mg/dL (8-26) Creatinine 1.3 mg/dL (0.7-1.3) Estimated GFR (Cockcroft-Gault) 52.9 Glucose Level 101 mg/dL (70-99) Calcium Level 8.7 mg/dL (8.5-10.1) Test 06/12/19 07:35 Glucose (Fingerstick) 90 mg/dL (70-99) Microbiology 06/10/19 Blood Culture - Preliminary, Resulted NO GROWTH AFTER 1 DAY Medications Current Medications Sodium Chloride 1,000 ml @ 1,000 mls/hr 1X STAT IV Last administered on 06/10/19at 17:46; Start 06/10/19 at 17:22; Stop 06/10/19 at 18:21; Status DC Ceftriaxone Sodium (Rocephin) 1 gm 1X STAT IVP Last administered on 06/10/19at 19:30; Start 06/10/19 at 18:43; Stop 06/10/19 at 18:45; Status DC Sodium Chloride 1,000 ml @ 1,000 mls/hr 1X STAT IV Last administered on 06/10/19at 19:31; Start 06/10/19 at 19:05; Stop 06/10/19 at 20:04; Status DC Oseltamivir Phosphate (Tamiflu) 30 mg BID PO Last administered on 06/11/19at 08:20; Start 06/10/19 at 20:00; Stop 06/11/19 at 12:56; Status DC Magnesium Sulfate/ Dextrose 100 ml @ 100 mls/hr 1X STAT IV Last administered on 06/10/19at 20:28; Start 06/10/19 at 19:07; Stop 06/10/19 at 20:06; Status DC Ondansetron HCl (Zofran) 4 mg PRN Q8HRS PRN IV NAUSEA/VOMITING; Start 06/10/19 at 19:15; Stop 06/11/19 at 19:14; Status DC Fentanyl Citrate (Fentanyl 2ml Vial) 50 mcg PRN Q1HR PRN IV PAIN; Start 06/10/19 at 19:15; Stop 06/11/19 at 19:14; Status DC Acetaminophen (Tylenol) 650 mg PRN Q4HRS PRN PO FEVER Last administered on 06/11/19at 00:42; Start 06/10/19 at 19:15; Stop 06/11/19 at 19:14; Status DC Aspirin (Ecotrin) 325 mg DAILY16 PO Last administered on 06/11/19at 17:45; Start 06/11/19 at 16:00 Atorvastatin Calcium (Lipitor) 20 mg DAILY16 PO Last administered on 06/11/19at 17:45; Start 06/11/19 at 16:00 Magnesium Oxide (Magnesium Oxide) 400 mg BID PO Last administered on 06/12/19 08:19; Start 06/11/19 at 09:00 Tamsulosin HCl (Flomax) 0.4 mg QHS PO Last administered on 06/11/19 21:08; Start 06/10/19 at 22:00 Doxycycline Hyclate 100 mg/ Dextrose 100 ml @ 50 mls/hr 1X ONCE IV Last administered on 06/10/19 23:35; Start 06/10/19 at 23:45; Stop 06/11/19 at 01:44; Status DC Amiodarone HCl (Cordarone) 400 mg BID PO Last administered on 06/12/19 08:21; Start 06/11/19 at 12:00 Apixaban (Eliquis) 5 mg BID PO Last administered on 06/12/19 08:19; Start 06/11/19 at 12:00 Atorvastatin Calcium (Lipitor) 40 mg QHS PO Last administered on 06/11/19at 21:11; Start 06/11/19 at 21:00 Clopidogrel Bisulfate (Plavix) 75 mg DAILY PO Last administered on 06/12/19 08:19; Start 06/11/19 at 12:00 Docusate Sodium (Colace) 100 mg BID PO Last administered on 06/12/19 08:20; Start 06/11/19 at 12:00 Ferrous Sulfate (Feosol) 325 mg DAILY PO Last administered on 06/12/19 08:20; Start 06/12/19 at 09:00 Metoprolol Succinate (Toprol Xl) 25 mg DAILY PO Last administered on 06/12/19 08:20; Start 06/11/19 at 12:00 Polyethylene Glycol (miraLAX PACKET) 17 gm DAILY PO ; Start 06/11/19 at 12:00 Fluticasone Propionate (Flonase) 2 spray DAILY NS ; Start 06/12/19 at 09:00 Multivitamins (Thera M Plus) 1 tab DAILY PO Last administered on 06/12/19at 08:19; Start 06/12/19 at 09:00 Non-Formulary Medication (Loratadine (Claritin)) 1 cap DAILY PO ; Start 06/12/19 at 09:00; Status UNV Non-Formulary Medication (Multivits-Min/ Fa/Lycopene/Lut (Centrum Silver Tablet)) 1 tab DAILY .ROUTE ; Start 06/12/19 at 09:00; Status UNV Famotidine (Pepcid) 20 mg BID PO Last administered on 06/12/19at 08:19; Start 06/11/19 at 12:00 Non-Formulary Medication ([melatonin] ) 10 mg QHS PO ; Start 06/11/19 at 21:00; Status UNV Ceftriaxone Sodium (Rocephin) 1 gm Q24H IVP Last administered on 06/11/19at 17:50; Start 06/11/19 at 18:00; Stop 06/12/19 at 08:56; Status DC Doxycycline Hyclate (Vibra-Tab) 100 mg BID PO Last administered on 06/12/19at 08:19; Start 06/11/19 at 13:30; Stop 06/12/19 at 08:56; Status DC Oseltamivir Phosphate (Tamiflu) 75 mg BID PO ; Start 06/11/19 at 14:00; Stop 06/11/19 at 15:10; Status DC Oseltamivir Phosphate (Tamiflu) 75 mg BID PO Last administered on 06/12/19at 08:20; Start 06/11/19 at 21:00; Stop 06/16/19 at 20:59 Info (Anti-Coagulation Monitoring By Pharmacy) 1 each PRN DAILY PRN MC SEE COMMENTS; Start 06/11/19 at 18:00 Cefdinir (Omnicef) 300 mg BID PO ; Start 06/12/19 at 09:00 Active Scripts Active Amiodarone Hcl 200 Mg Tablet 400 Mg PO BID 30 Days Flomax (Tamsulosin Hcl) 0.4 Mg Cap.er.24h 0.4 Mg PO QHS 30 Days Mag-Oxide (Magnesium Oxide) 400 Mg Tablet 400 Mg PO BID 30 Days Reported Eliquis (Apixaban) 5 Mg Tablet 5 Mg PO BID Claritin (Loratadine) 10 Mg Capsule 1 Cap PO DAILY 30 Days Miralax (Polyethylene Glycol 3350) 17 Gm Powd.pack 1 Packet PO DAILY 2 Days dissolve in water Colace (Docusate Sodium) 100 Mg Capsule 1 Cap PO BID 30 Days Flonase Allergy Relief (Fluticasone Propionate) 9.9 Ml [place].susp 2 Sprays NS DAILY Clopidogrel (Clopidogrel Bisulfate) 75 Mg Tablet 1 Tab PO DAILY Ranitidine Hcl 150 Mg Capsule 1 Cap PO BID Atorvastatin Calcium 40 Mg Tablet 1 Tab PO DAILY Ferrous Sulfate 325 Mg Tablet 1 Tab PO DAILY Centrum Silver Chewable Tablet (Folic Acid/Multivits-Min/Lut) 1 Each Tab.chew 1 Each PO ONCE Metoprolol Succinate ( Xl ) (Metoprolol Succinate) 25 Mg Tab.er.24h 1 Tab PO DAILY [melatonin] 10 Mg PO QHS Centrum Silver Tablet (Multivits-Min/Fa/Lycopene/Lut) 1 Each Tablet 1 Tab DAILY Metformin Hcl 500 Mg Tablet 1 Tab BIDBFRMEAL Vitals/I & O Vital Sign - Last 24 Hours 06/11/19 06/11/19 06/11/19 06/11/19 11:00 12:48 12:49 15:00 Temp 97.7 97.8 97.7 97.8 Pulse 93 93 93 84 Resp 18 18 B/P (MAP) 140/56 (84) 140/56 140/56 123/62 (82) Pulse Ox 94 92 O2 Delivery Room Air Room Air 06/11/19 06/11/19 06/11/19 06/11/19 19:48 20:00 21:08 23:27 Temp 98.4 97.6 98.4 97.6 Pulse 93 93 80 Resp 16 16 B/P (MAP) 111/48 (69) 111/48 105/49 (67) Pulse Ox 94 97 O2 Delivery Room Air Room Air Room Air 06/12/19 06/12/19 06/12/19 06/12/19 02:49 07:00 08:20 08:21 Temp 97.7 97.7 97.7 97.7 Pulse 78 57 57 57 Resp 18 16 B/P (MAP) 109/82 (91) 132/49 (76) 132/49 132/49 Pulse Ox 96 95 O2 Delivery Room Air Room Air Intake and Output 06/11/19 06/11/19 06/12/19 15:00 23:00 07:00 Intake Total 300 ml 120 ml Balance 300 ml 120 ml YAMINI MIRELES MD Jun 12, 2019 09:05
[2019-06-12 11:00] VITALS: BP 105/56
--- NOTE | 2019-06-12 11:17 | PDOC ---
[employer] PROGRESS NOTE Chief Complaint Chief Complaint Weakness Diabetes hypertension coronary artery disease eye cancer prostate cancer angioplasty coronary artery bypass grafting AICD defibrillator prostatectomy left eye surgery cardiac stents History of Present Illness History of Present Illness 06/12 Pt seen and examined Pt resting comfortably Pt would like to be DC, feels better Vitals/I&O Vitals/I&O: Vital Signs Date Time Temp Pulse Resp B/P (MAP) Pulse Ox O2 Delivery O2 Flow Rate FiO2 06/12/19 08:21 57 132/49 06/12/19 08:00 Room Air 06/12/19 07:00 97.7 16 95 97.7 I & O 06/11/19 06/11/19 06/12/19 14:59 22:59 06:59 Intake Total 300 ml 120 ml Balance 300 ml 120 ml Physical Exam Physical Exam: GENERAL: Alert, oriented gentleman, not in distress. VITAL SIGNS: Stable HEENT: Both pupils are round and reacting. No conjunctival lesion, no lesion in the mouth. NECK: Supple, no JVP, no lymphadenopathy. LUNGS: Clear. HEART: S1, S2 regular. ABDOMEN: Benign. EXTREMITIES: No edema, cyanosis. SKIN: Unremarkable. NEUROLOGIC: The patient is neurologically alert, awake and appropriate. No focal neurologic deficit. General: Alert, Oriented X3, Cooperative Heart: Regular rate, Normal S1, Normal S2 Lungs: Clear Abdomen: Soft, No tenderness Extremities: No clubbing, No cyanosis Skin: No rashes, No breakdown Labs Labs: Laboratory Tests Test 06/11/19 11:42 06/11/19 17:24 06/11/19 20:46 06/12/19 03:35 Glucose (Fingerstick) 113 mg/dL (70-99) 136 mg/dL (70-99) 117 mg/dL (70-99) White Blood Count 4.6 x10^3/uL (4.0-11.0) Red Blood Count 3.97 x10^6/uL (4.30-5.70) Hemoglobin 10.9 g/dL (13.0-17.5) Hematocrit 33.5 % (39.0-53.0) Mean Corpuscular Volume 84 fL (79-100) Mean Corpuscular Hemoglobin 28 pg (25-35) Mean Corpuscular Hemoglobin Concent 33 g/dL (31-37) Red Cell Distribution Width 16.0 % (11.5-14.5) Platelet Count 106 x10^3/uL (140-400) Neutrophils (%) (Auto) 75 % (31-73) Lymphocytes (%) (Auto) 11 % (24-48) Monocytes (%) (Auto) 11 % (0-9) Eosinophils (%) (Auto) 3 % (0-3) Basophils (%) (Auto) 1 % (0-3) Neutrophils # (Auto) 3.4 x10^3/uL (1.8-7.7) Lymphocytes # (Auto) 0.5 x10^3/uL (1.0-4.8) Monocytes # (Auto) 0.5 x10^3/uL (0.0-1.1) Eosinophils # (Auto) 0.1 x10^3/uL (0.0-0.7) Basophils # (Auto) 0.0 x10^3/uL (0.0-0.2) Erythrocyte Sedimentation Rate 40 (0-15) Sodium Level 142 mmol/L (136-145) Potassium Level 3.7 mmol/L (3.5-5.1) Chloride Level 106 mmol/L (98-107) Carbon Dioxide Level 27 mmol/L (21-32) Anion Gap 9 (6-14) Blood Urea Nitrogen 18 mg/dL (8-26) Creatinine 1.3 mg/dL (0.7-1.3) Estimated GFR (Cockcroft-Gault) 52.9 Glucose Level 101 mg/dL (70-99) Calcium Level 8.7 mg/dL (8.5-10.1) Vitamin B12 Level 446 pg/mL (247-911) Test 06/12/19 07:35 Glucose (Fingerstick) 90 mg/dL (70-99) Review of Systems Review of Systems: No CP, SOB Assessment and Plan Assessmemt and Plan Problems Medical Problems: (1) MILES (acute kidney injury) Status: Acute (2) Sepsis Status: Acute Assessment Weakness Diabetes hypertension coronary artery disease eye cancer prostate cancer angioplasty coronary artery bypass grafting AICD defibrillator prostatectomy left eye surgery cardiac stents Plan Pulm, ID, and neuro following Abx per ID Breathing treatments prn O2 prn MILES resolved HM PT/OT Labs DVT prophylaxis DC when ok with subspecialist Comment Review of Relevant I have reviewed the following items ron (where applicable) has been applied. Medications: Current Medications Medications (Trade) Dose Ordered Sig/Deidra Route PRN Reason Start Time Stop Time Status Last Admin Dose Admin Aspirin (Ecotrin) 325 mg DAILY16 PO 06/11/19 16:00 06/11/19 17:45 Atorvastatin Calcium (Lipitor) 20 mg DAILY16 PO 06/11/19 16:00 06/11/19 17:45 Amiodarone HCl (Cordarone) 400 mg BID PO 06/11/19 12:00 06/12/19 08:21 Apixaban (Eliquis) 5 mg BID PO 06/11/19 12:00 06/12/19 08:19 Atorvastatin Calcium (Lipitor) 40 mg QHS PO 06/11/19 21:00 06/11/19 21:11 Clopidogrel Bisulfate (Plavix) 75 mg DAILY PO 06/11/19 12:00 06/12/19 08:19 Docusate Sodium (Colace) 100 mg BID PO 06/11/19 12:00 06/12/19 08:20 Ferrous Sulfate (Feosol) 325 mg DAILY PO 06/12/19 09:00 06/12/19 08:20 Metoprolol Succinate (Toprol Xl) 25 mg DAILY PO 06/11/19 12:00 06/12/19 08:20 Multivitamins (Thera M Plus) 1 tab DAILY PO 06/12/19 09:00 06/12/19 08:19 Famotidine (Pepcid) 20 mg BID PO 06/11/19 12:00 06/12/19 08:19 Ceftriaxone Sodium (Rocephin) 1 gm Q24H IVP 06/11/19 18:00 06/12/19 08:56 DC 06/11/19 17:50 Doxycycline Hyclate (Vibra-Tab) 100 mg BID PO 06/11/19 13:30 06/12/19 08:56 DC 06/12/19 08:19 Oseltamivir Phosphate (Tamiflu) 75 mg BID PO 06/11/19 21:00 06/16/19 20:59 06/12/19 08:20 Cefdinir (Omnicef) 300 mg BID PO 06/12/19 09:00 06/12/19 11:11 RAFAEL OROPEZA III DO Jun 12, 2019 11:17
--- NOTE | 2019-06-12 11:43 | PDOC ---
PULMONARY PROGRESS NOTES Subjective FEVER RESOLVED NO SOA WANTS TO GO HOME Vitals Vital Signs Date Time Temp Pulse Resp B/P (MAP) Pulse Ox O2 Delivery O2 Flow Rate FiO2 06/12/19 08:21 57 132/49 06/12/19 08:00 Room Air 06/12/19 07:00 97.7 16 95 97.7 General: Alert, No acute distress Lungs: Crackles (improved LLL) Cardiovascular: S1 Abdomen: Soft Neuro Exam: Alert Extremities: No Edema Skin: Warm Labs Laboratory Tests Test 06/10/19 17:12 06/10/19 17:17 06/10/19 18:08 06/10/19 20:28 Influenza Type A Antigen Negative (NEGATIVE) Influenza Type B Antigen Negative (NEGATIVE) White Blood Count 9.2 x10^3/uL (4.0-11.0) Red Blood Count 4.41 x10^6/uL (4.30-5.70) Hemoglobin 12.0 g/dL (13.0-17.5) Hematocrit 37.1 % (39.0-53.0) Mean Corpuscular Volume 84 fL (79-100) Mean Corpuscular Hemoglobin 27 pg (25-35) Mean Corpuscular Hemoglobin Concent 32 g/dL (31-37) Red Cell Distribution Width 16.3 % (11.5-14.5) Platelet Count 141 x10^3/uL (140-400) Neutrophils (%) (Auto) 87 % (31-73) Lymphocytes (%) (Auto) 4 % (24-48) Monocytes (%) (Auto) 9 % (0-9) Eosinophils (%) (Auto) 0 % (0-3) Basophils (%) (Auto) 0 % (0-3) Neutrophils # (Auto) 8.0 x10^3/uL (1.8-7.7) Lymphocytes # (Auto) 0.4 x10^3/uL (1.0-4.8) Monocytes # (Auto) 0.8 x10^3/uL (0.0-1.1) Eosinophils # (Auto) 0.0 x10^3/uL (0.0-0.7) Basophils # (Auto) 0.0 x10^3/uL (0.0-0.2) Segmented Neutrophils % 66 % (35-66) Band Neutrophils % 19 % (0-9) Lymphocytes % 6 % (24-48) Atypical Lymphocytes % (Manual) 2 % (0-0) Monocytes % 7 % (0-10) Platelet Estimate Adequate (ADEQUATE) Anisocytosis Slight Prothrombin Time 19.5 SEC (11.7-14.0) Prothromb Time International Ratio 1.7 (0.8-1.1) Activated Partial Thromboplast Time 39 SEC (24-38) Sodium Level 134 mmol/L (136-145) Potassium Level 4.3 mmol/L (3.5-5.1) Chloride Level 97 mmol/L (98-107) Carbon Dioxide Level 25 mmol/L (21-32) Anion Gap 12 (6-14) Blood Urea Nitrogen 24 mg/dL (8-26) Creatinine 1.5 mg/dL (0.7-1.3) Estimated GFR (Cockcroft-Gault) 44.8 BUN/Creatinine Ratio 16 (6-20) Glucose Level 156 mg/dL (70-99) Lactic Acid Level 2.7 mmol/L (0.4-2.0) 1.2 mmol/L (0.4-2.0) Calcium Level 9.0 mg/dL (8.5-10.1) Magnesium Level 1.7 mg/dL (1.8-2.4) Total Bilirubin 0.7 mg/dL (0.2-1.0) Aspartate Amino Transf (AST/SGOT) 40 U/L (15-37) Alanine Aminotransferase (ALT/SGPT) 35 U/L (16-63) Alkaline Phosphatase 65 U/L (46-116) Troponin I Quantitative < 0.017 ng/mL (0.000-0.055) Total Protein 7.6 g/dL (6.4-8.2) Albumin 3.5 g/dL (3.4-5.0) Albumin/Globulin Ratio 0.9 (1.0-1.7) Procalcitonin < 0.10 ng/mL (0.00-0.10) Urine Collection Type Unknown Urine Color Yellow Urine Clarity Clear Urine pH 5.5 Urine Specific [place] 1.020 Urine Protein 30 mg/dL (NEG-TRACE) Urine Glucose (UA) Negative mg/dL (NEG) Urine Ketones (Stick) Negative mg/dL (NEG) Urine Blood Small (NEG) Urine Nitrite Negative (NEG) Urine Bilirubin Negative (NEG) Urine Urobilinogen Dipstick 0.2 mg/dL (0.2 mg/dL) Urine Leukocyte Esterase Negative (NEG) Urine RBC 1-2 /HPF (0-2) Urine WBC 0 /HPF (0-4) Urine Squamous Epithelial Cells Few /LPF Urine Bacteria 0 /HPF (0-FEW) Urine Mucus Mod /LPF Test 06/10/19 21:28 06/11/19 03:15 06/11/19 07:54 06/11/19 11:42 Glucose (Fingerstick) 149 mg/dL (70-99) 122 mg/dL (70-99) 113 mg/dL (70-99) Sodium Level 137 mmol/L (136-145) Potassium Level 3.6 mmol/L (3.5-5.1) Chloride Level 103 mmol/L (98-107) Carbon Dioxide Level 24 mmol/L (21-32) Anion Gap 10 (6-14) Blood Urea Nitrogen 17 mg/dL (8-26) Creatinine 1.2 mg/dL (0.7-1.3) Estimated GFR (Cockcroft-Gault) 58.0 Glucose Level 123 mg/dL (70-99) Calcium Level 8.5 mg/dL (8.5-10.1) Test 06/11/19 17:24 06/11/19 20:46 06/12/19 03:35 06/12/19 07:35 Glucose (Fingerstick) 136 mg/dL (70-99) 117 mg/dL (70-99) 90 mg/dL (70-99) White Blood Count 4.6 x10^3/uL (4.0-11.0) Red Blood Count 3.97 x10^6/uL (4.30-5.70) Hemoglobin 10.9 g/dL (13.0-17.5) Hematocrit 33.5 % (39.0-53.0) Mean Corpuscular Volume 84 fL (79-100) Mean Corpuscular Hemoglobin 28 pg (25-35) Mean Corpuscular Hemoglobin Concent 33 g/dL (31-37) Red Cell Distribution Width 16.0 % (11.5-14.5) Platelet Count 106 x10^3/uL (140-400) Neutrophils (%) (Auto) 75 % (31-73) Lymphocytes (%) (Auto) 11 % (24-48) Monocytes (%) (Auto) 11 % (0-9) Eosinophils (%) (Auto) 3 % (0-3) Basophils (%) (Auto) 1 % (0-3) Neutrophils # (Auto) 3.4 x10^3/uL (1.8-7.7) Lymphocytes # (Auto) 0.5 x10^3/uL (1.0-4.8) Monocytes # (Auto) 0.5 x10^3/uL (0.0-1.1) Eosinophils # (Auto) 0.1 x10^3/uL (0.0-0.7) Basophils # (Auto) 0.0 x10^3/uL (0.0-0.2) Erythrocyte Sedimentation Rate 40 (0-15) Sodium Level 142 mmol/L (136-145) Potassium Level 3.7 mmol/L (3.5-5.1) Chloride Level 106 mmol/L (98-107) Carbon Dioxide Level 27 mmol/L (21-32) Anion Gap 9 (6-14) Blood Urea Nitrogen 18 mg/dL (8-26) Creatinine 1.3 mg/dL (0.7-1.3) Estimated GFR (Cockcroft-Gault) 52.9 Glucose Level 101 mg/dL (70-99) Calcium Level 8.7 mg/dL (8.5-10.1) Vitamin B12 Level 446 pg/mL (247-911) Test 06/12/19 11:23 Glucose (Fingerstick) 149 mg/dL (70-99) Laboratory Tests Test 06/11/19 11:42 06/11/19 17:24 06/11/19 20:46 06/12/19 03:35 Glucose (Fingerstick) 113 mg/dL (70-99) 136 mg/dL (70-99) 117 mg/dL (70-99) White Blood Count 4.6 x10^3/uL (4.0-11.0) Red Blood Count 3.97 x10^6/uL (4.30-5.70) Hemoglobin 10.9 g/dL (13.0-17.5) Hematocrit 33.5 % (39.0-53.0) Mean Corpuscular Volume 84 fL (79-100) Mean Corpuscular Hemoglobin 28 pg (25-35) Mean Corpuscular Hemoglobin Concent 33 g/dL (31-37) Red Cell Distribution Width 16.0 % (11.5-14.5) Platelet Count 106 x10^3/uL (140-400) Neutrophils (%) (Auto) 75 % (31-73) Lymphocytes (%) (Auto) 11 % (24-48) Monocytes (%) (Auto) 11 % (0-9) Eosinophils (%) (Auto) 3 % (0-3) Basophils (%) (Auto) 1 % (0-3) Neutrophils # (Auto) 3.4 x10^3/uL (1.8-7.7) Lymphocytes # (Auto) 0.5 x10^3/uL (1.0-4.8) Monocytes # (Auto) 0.5 x10^3/uL (0.0-1.1) Eosinophils # (Auto) 0.1 x10^3/uL (0.0-0.7) Basophils # (Auto) 0.0 x10^3/uL (0.0-0.2) Erythrocyte Sedimentation Rate 40 (0-15) Sodium Level 142 mmol/L (136-145) Potassium Level 3.7 mmol/L (3.5-5.1) Chloride Level 106 mmol/L (98-107) Carbon Dioxide Level 27 mmol/L (21-32) Anion Gap 9 (6-14) Blood Urea Nitrogen 18 mg/dL (8-26) Creatinine 1.3 mg/dL (0.7-1.3) Estimated GFR (Cockcroft-Gault) 52.9 Glucose Level 101 mg/dL (70-99) Calcium Level 8.7 mg/dL (8.5-10.1) Vitamin B12 Level 446 pg/mL (247-911) Test 06/12/19 07:35 06/12/19 11:23 Glucose (Fingerstick) 90 mg/dL (70-99) 149 mg/dL (70-99) Medications Active Scripts Medications Dose Route/Sig Max Daily Dose Days Date Category Dose Instructions Eliquis (Apixaban) 5 Mg Tablet 5 Mg PO BID 06/11/19 Reported Claritin (Loratadine) 10 Mg Capsule 1 Cap PO DAILY 30 06/11/19 Reported Miralax (Polyethylene Glycol 3350) 17 Gm Powd.pack 1 Packet PO DAILY 2 06/11/19 Reported dissolve in water Colace (Docusate Sodium) 100 Mg Capsule 1 Cap PO BID 30 06/11/19 Reported Flonase Allergy Relief (Fluticasone Propionate) 9.9 Ml [place].susp 2 Sprays NS DAILY 06/11/19 Reported Clopidogrel (Clopidogrel Bisulfate) 75 Mg Tablet 1 Tab PO DAILY 06/11/19 Reported Ranitidine Hcl 150 Mg Capsule 1 Cap PO BID 06/11/19 Reported Atorvastatin Calcium 40 Mg Tablet 1 Tab PO DAILY 06/11/19 Reported Ferrous Sulfate 325 Mg Tablet 1 Tab PO DAILY 06/11/19 Reported Centrum Silver Chewable Tablet (Folic Acid/Multivits-Min/Lut) 1 Each Tab.chew 1 Each PO ONCE 06/11/19 Reported Metoprolol Succinate ( Xl ) (Metoprolol Succinate) 25 Mg Tab.er.24h 1 Tab PO DAILY 06/11/19 Reported Amiodarone Hcl 200 Mg Tablet 400 Mg PO BID 30 05/22/18 Rx Flomax (Tamsulosin Hcl) 0.4 Mg Cap.er.24h 0.4 Mg PO QHS 30 05/22/18 Rx Mag-Oxide (Magnesium Oxide) 400 Mg Tablet 400 Mg PO BID 30 05/11/18 Rx [melatonin] 10 Mg PO QHS 12/07/17 Reported Centrum Silver Tablet (Multivits-Min/Fa/Lycopene/Lut) 1 Each Tablet 1 Tab DAILY 08/24/13 Reported Metformin Hcl 500 Mg Tablet 1 Tab BIDBFRMEAL 08/24/13 Reported Impression . 1. Dyspnea secondary to early sepsis. His lactic acid was 2.7 on admission. 2. High-grade fever with left lower lobe infiltrate seen on the CT chest and crackles on examination. The findings are consistent with pneumonia, could be either viral versus bacterial. As the states that he did have a cough with some yellow-green sputum. 3. No significant tobacco history. Plan . 1. CLINICALLY MUCH BETTER. NO further fever 2. The patient was also started on Tamiflu and that is okay from a pulmonary standpoint. 3. P.r.n. bronchodilators. 4. The patient is on chronic Eliquis. 5. Follow the response to treatment and fever pattern will be monitored closely. 6. he could be discharged home if ok by ID 7. Discussed with the patient's TATYANA RICE MD Jun 12, 2019 11:43
[2019-06-12 23:08] LABS: HEMOGLOBIN A1C 5.7 % (4.8-5.6)
[2019-06-14 20:08] LABS: ANA INTERP Negative (.)
[2019-06-17 09:09] LABS: ALBUM 2.8 g/dL (2.9-4.4); ALPHA 1 0.3 g/dL (0.0-0.4); ALPHA 2 0.9 g/dL (0.4-1.0); BETA 0.9 g/dL (0.7-1.3); GAMMA 0.4 g/dL (0.4-1.8); PROTEIN TOTAL 5.3 g/dL (6.0-8.5); SPEP AG RATIO 1.1 (0.7-1.7)
--- NOTE | 2019-06-17 12:30 | DS ---
DATE OF DISCHARGE: 06/12/2019 ADMISSION DIAGNOSES: Sepsis, hypomagnesemia and acute kidney injury. DISCHARGE DIAGNOSIS: Resolving sepsis. HOSPITAL COURSE: The patient is a pleasant 84-year-old male who presented with hypomagnesemia, acute kidney injury with a bump in his creatinine and sepsis. He was admitted. We started him on IV antibiotics and breathing treatments because his CAT scan showed possible lower lobe pneumonia. I also consulted the Pulmonary Medicine. We replaced his electrolytes. We trended his creatinine and over the next 48 hours, he returned to his baseline, we discharged to home with close outpatient followup. DISPOSITION: Home. ACTIVITY: As tolerated. DIET: Low sodium. MEDICATIONS: Please see MRAD. TOTAL TIME: 34 minutes. RAFAEL OROPEZA DO DR: Brandon JOB#: [id number] / [id number]
== END 2019-06-12 12:23 | disposition home or self-care (01) | DRG 871 ==
LOC: ER 16:57 → 4 NORTH 19:17
PROVIDERS: ADMIT Internal Medicine; ATTEND Internal Medicine
DX: A41.9 Sepsis, unspecified organism (principal); J18.9 Pneumonia, unspecified organism; N17.9 Acute kidney failure, unspecified; E87.2 Acidosis; I48.91 Unspecified atrial fibrillation; E11.40 Type 2 diabetes mellitus with diabetic neuropathy, unspecified; Z66 Do not resuscitate; M19.90 Unspecified osteoarthritis, unspecified site; R65.20 Severe sepsis without septic shock; K21.9 Gastro-esophageal reflux disease without esophagitis; I10 Essential (primary) hypertension; E83.42 Hypomagnesemia; D64.9 Anemia, unspecified; I25.10 Atherosclerotic heart disease of native coronary artery without angina pectoris; Z87.440 Personal history of urinary (tract) infections; Z87.01 Personal history of pneumonia (recurrent); Z79.01 Long term (current) use of anticoagulants; Z88.2 Allergy status to sulfonamides; Z91.011 Allergy to milk products; I25.2 Old myocardial infarction; Z97.4 Presence of external hearing-aid; Z87.891 Personal history of nicotine dependence; Z98.49 Cataract extraction status, unspecified eye; Z95.0 Presence of cardiac pacemaker; Z85.840 Personal history of malignant neoplasm of eye; Z85.46 Personal history of malignant neoplasm of prostate; Z95.5 Presence of coronary angioplasty implant and graft; Z95.1 Presence of aortocoronary bypass graft; Z82.49 Family history of ischemic heart disease and other diseases of the circulatory system
CPT/HCPCS: 36415; 70450; 71045; 71250; 74176; 80048; 80053; 81001; 82607; 82962; 83036; 83605; 83735; 84145; 84165; 84484; 85007; 85025; 85610; 85651; 85730; 86038; 87040; 87070; 87205; 87804; 93005; J0696; J3475; J3490; J7030; 97530; G0378

== ENCOUNTER 2019-08-02 18:03 | Emergency (ER) | payer MEDICARE ==
[~2019-08-02 18:03] MED LIST changes: +APIX5TAB PO; +ATOR40TA59 PO; +CLOP75TA PO; -DIGO125T PO; +DIGO125T3 PO; +DOCU-109 PO; +FERR325T14 PO; +FLUT9.9S NS; +FOLI1TAB4 PO; +LORA10CA PO; +METO-239 PO; +POLY17PO29 PO; +RANI150C PO
[2019-08-02 19:24] LABS: BILIRUBIN,URINE NEGATIVE (NEG); CLARITY,URINE CLOUDY; COLOR,URINE RED; NITRITE,URINE NEGATIVE (NEG); PH,URINE 7.5; PROTEIN,URINE 100 mg/dL (NEG-TRACE)
[2019-08-02 19:33] LABS: PROTHROMBIN TIME PATIENT 15.8 SEC (11.7-14.0)
[2019-08-02 19:37] LABS: BACTERIA,URINE FEW /HPF (0-FEW); RBC,URINE FIELD OBSCURED /HPF (0-2)
[2019-08-02 19:38] LABS: SQUAMOUS EPITHELIAL CELL,UR OCC /LPF
--- NOTE | 2019-08-02 19:40 | PHYS DOC ---
Past Medical History Past Medical History: Diabetes-Type II, Heart Disease, Hypertension Additional Past Medical Histor: Eye Cancer, Prostate Cancer Past Surgical History: Angioplasty, Coronary Bypass Surgery, Pacemaker Additional Past Surgical Histo: Prostatectomy, Left Eye Surgery, Defib Placement, CARDIAC STENTS Alcohol Use: Occasionally Drug Use: None Adult General Chief Complaint Chief Complaint: BLOOD IN URINE [place] [employer] HPI Patient is a 84 year old male with history of hypertension, cardiac disease and pacemaker placement and atrial fibrillation on Plavix and Eliquis, diabetes mellitus and prostate cancer who presents with complaint of bloody urine. Patient complaining of hematuria since this morning with mild lower abdominal discomfort without dizziness, fever and chills, nausea and vomiting, other bleeding. Patient states he had dysuria 3 days ago and his primary care physician ordered cephalexin and he started the first dose tonight. Review of Systems Review of Systems Constitutional: Denies fever or chills [] Eyes: Denies change in visual acuity, redness, or eye pain [] HENT: Denies nasal congestion or sore throat [] Respiratory: Denies cough or shortness of breath [] Cardiovascular: No additional information not addressed in HPI [] GI: Denies abdominal pain, nausea, vomiting, bloody stools or diarrhea [] : Post dysuria and hematuria Musculoskeletal: Denies back pain or joint pain [] Integument: Denies rash or skin lesions [] Neurologic: Denies headache, focal weakness or sensory changes [] Endocrine: Denies polyuria or polydipsia [] All other systems were reviewed and found to be within normal limits, except as documented in this note. Allergies Allergies Allergies Coded Allergies Type Severity Reaction Last Updated Verified Milk Containing Products Allergy Intermediate 06/10/19 Yes Sulfa (Sulfonamide Antibiotics) Allergy Mild 06/11/19 Yes Physical Exam Physical Exam Constitutional: Well developed, well nourished, mild distress, non-toxic cristina earance. [] HENT: Normocephalic, atraumatic. Eyes: PERRLA, EOMI, conjunctiva normal, no discharge. [] Neck: Normal range of motion, no tenderness, supple, no stridor. [] Cardiovascular:Heart rate regular rhythm, no murmur [] Lungs & Thorax: Bilateral breath sounds clear to auscultation [] Abdomen: Bowel sounds normal, soft, no tenderness, no masses, no pulsatile masses. [] Skin: Warm, dry, no erythema, no rash, mild ecchymosis in right groin and medial side of right thigh against his recent right femoral procedure for ablation of atrial fibrillation. [] Back: No tenderness, no CVA tenderness. [] Extremities: No tenderness, no cyanosis, no clubbing, ROM intact, no edema. [] Neurologic: Alert and oriented X 3, no focal deficits noted. [] Psychologic: Affect normal, judgement normal, mood normal. [] Current Patient Data Vital Signs Vital Signs Date Time Temp Pulse Resp B/P (MAP) Pulse Ox O2 Delivery O2 Flow Rate FiO2 08/02/19 18:52 97.6 55 12 149/68 (95) 98 Room Air 97.6 Lab Values Laboratory Tests Test 08/02/19 19:04 08/02/19 19:08 08/02/19 19:30 Urine Collection Type Void Urine Color Red Urine Clarity Cloudy Urine pH 7.5 Urine Specific [place] 1.010 Urine Protein 100 mg/dL (NEG-TRACE) Urine Glucose (UA) Negative mg/dL (NEG) Urine Ketones (Stick) Trace mg/dL (NEG) Urine Blood Large (NEG) Urine Nitrite Negative (NEG) Urine Bilirubin Negative (NEG) Urine Urobilinogen Dipstick 1.0 mg/dL (0.2 mg/dL) Urine Leukocyte Esterase Small (NEG) Urine RBC Field obscured /HPF (0-2) Urine WBC 11-20 /HPF (0-4) Urine Squamous Epithelial Cells Occ /LPF Urine Bacteria Few /HPF (0-FEW) Urine Mucus Slight /LPF Prothrombin Time 15.8 SEC (11.7-14.0) H Prothrombin Time INR 1.3 (0.8-1.1) H Activated Partial Thromboplast Time 21 SEC (24-38) L White Blood Count 5.0 x10^3/uL (4.0-11.0) Red Blood Count 3.64 x10^6/uL (4.30-5.70) L Hemoglobin 10.4 g/dL (13.0-17.5) L Hematocrit 31.9 % (39.0-53.0) L Mean Corpuscular Volume 87 fL (79-100) Mean Corpuscular Hemoglobin 29 pg (25-35) Mean Corpuscular Hemoglobin Concent 33 g/dL (31-37) Red Cell Distribution Width 18.3 % (11.5-14.5) H Platelet Count 132 x10^3/uL (140-400) L Neutrophils (%) (Auto) 77 % (31-73) H Lymphocytes (%) (Auto) 12 % (24-48) L Monocytes (%) (Auto) 9 % (0-9) Eosinophils (%) (Auto) 2 % (0-3) Basophils (%) (Auto) 1 % (0-3) Neutrophils # (Auto) 3.8 x10^3/uL (1.8-7.7) Lymphocytes # (Auto) 0.6 x10^3/uL (1.0-4.8) L Monocytes # (Auto) 0.4 x10^3/uL (0.0-1.1) Eosinophils # (Auto) 0.1 x10^3/uL (0.0-0.7) Basophils # (Auto) 0.0 x10^3/uL (0.0-0.2) Sodium Level 140 mmol/L (136-145) Potassium Level 4.6 mmol/L (3.5-5.1) Chloride Level 103 mmol/L (98-107) Carbon Dioxide Level 28 mmol/L (21-32) Anion Gap 9 (6-14) Blood Urea Nitrogen 17 mg/dL (8-26) Creatinine 1.1 mg/dL (0.7-1.3) Estimated GFR (Cockcroft-Gault) 64.1 BUN/Creatinine Ratio 15 (6-20) Glucose Level 113 mg/dL (70-99) H Lactic Acid Level 2.0 mmol/L (0.4-2.0) Calcium Level 8.9 mg/dL (8.5-10.1) Total Bilirubin 0.6 mg/dL (0.2-1.0) Aspartate Amino Transferase (AST) 46 U/L (15-37) H Alanine Aminotransferase (ALT) 43 U/L (16-63) Alkaline Phosphatase 66 U/L (46-116) Total Protein 6.5 g/dL (6.4-8.2) Albumin 3.4 g/dL (3.4-5.0) Albumin/Globulin Ratio 1.1 (1.0-1.7) Laboratory Tests 08/02/19 19:30 Laboratory Tests 08/02/19 19:30 EKG EKG [] Radiology/Procedures Radiology/Procedures [] Course & Med Decision Making Course & Med Decision Making Pertinent Labs reviewed. 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 Patient had unremarkable physical exam. Patient had 38 ML of urine in bladder scan after urination. Patient had hemoglobin of 10.5 with previous hgb of 10.9 in June. Patient did not have elevation of lactic acid or leukocytosis. Patient treated with Rocephin in ER and was advised to continue cephalexin ordered by primary care physician. Patient was advised to follow-up with his primary care physician in 2 days and increase fluid intake. He was advised to continue and to call clinician medication and follow up with primary care physician for possible stopping the medication I've spoken with the patient and/or caregivers. I've explained the patient's condition, diagnosis and treatment plan based on information available to me at this time. I've answered the patient's and/or caregivers questions and addressed any concerns. The patient and/or caregivers have a good understanding the patient's diagnosis, condition and treatment plan as can be expected at this point. Vital signs have been stabilized. The patient's condition is stable for discharge from the emergency department. The patient will pursue further outpatient evaluation with her primary care provider or other designated consulting physician as outlined in the discharge instructions. Patient and/or caregivers are agreeable to this plan of care and follow-up instructions have been explained in detail. The patient and/or caregivers have received these instructions in written format and expressed u nderstanding of these discharge instructions. The patient and her caregivers are aware that if any significant change in condition or worsening of symptoms should prompt him to immediately return to this of the closest emergency department. If an emergent department is not readily available I would encourage him to call 911. Kayleneon Disclaimer Dragon Disclaimer This electronic medical record was generated, in whole or in part, using a voice recognition dictation system. Departure Departure Impression: Primary Impression: Hematuria Additional Impressions: Urinary tract infection Chronic anemia Disposition: HOME, SELF-CARE (at 2032) Condition: STABLE Referrals: ADRIAN JOHNSON MD (PCP) Patient Instructions: Hematuria, Adult, Urinary Tract Infection Additional Instructions: Drink plenty of liquids Follow-up with your primary care physician in 2 days Return to ER if not getting better Continue home cephalexin Thank you for visiting [facility]. We appreciate you trusting us with your care. If any additional problems come up don't hesitate to return to visit us. Please follow up with your primary care provider so they can plan additional care if needed and know about the problem that you had. If symptoms worsen come back to the Emergency Department. Any concerning symptoms that start such as chest pain, shortness of air, weakness or numbness on one side of the body, running high fevers or any other concerning symptoms return to the ER. Problem Qualifiers Primary Impression: Hematuria Hematuria type: unspecified type Qualified Codes: R31.9 - Hematuria, unspecified Additional Impressions: Urinary tract infection Urinary tract infection type: site unspecified Hematuria presence: with hematuria Qualified Codes: N39.0 - Urinary tract infection, site not specified; R31.9 - Hematuria, unspecified CHIARA WEBBER MD Aug 02, 2019 19:40
[2019-08-02 19:41] LABS: BASO % 1 % (0-3); EOS # 0.1 x10^3/uL (0.0-0.7); EOS % 2 % (0-3); HEMATOCRIT 31.9 % (39.0-53.0); HEMOGLOBIN 10.4 g/dL (13.0-17.5); LYMPH # 0.6 x10^3/uL (1.0-4.8); LYMPH % 12 % (24-48); MEAN CORPUSCULAR HEMOGLOBIN 29 pg (25-35); MEAN CORPUSCULAR HGB CONC 33 g/dL (31-37); MEAN CORPUSCULAR VOLUME 87 fL (79-100); MONO # 0.4 x10^3/uL (0.0-1.1); MONO % 9 % (0-9); NEUT # 3.8 x10^3/uL (1.8-7.7); NEUT % 77 % (31-73); PLATELET COUNT 132 x10^3/uL (140-400); RED BLOOD COUNT 3.64 x10^6/uL (4.30-5.70); RED CELL DISTRIBUTION WIDTH 18.3 % (11.5-14.5)
[2019-08-02 19:47] LABS: CALCIUM 8.9 mg/dL (8.5-10.1); CREATININE 1.1 mg/dL (0.7-1.3); GFR 64.1; POTASSIUM 4.6 mmol/L (3.5-5.1)
[2019-08-02 19:53] LABS: ALBUMIN 3.4 g/dL (3.4-5.0); ALBUMIN/GLOBULIN RATIO 1.1 (1.0-1.7); TOTAL BILIRUBIN 0.6 mg/dL (0.2-1.0); TOTAL PROTEIN 6.5 g/dL (6.4-8.2)
[2019-08-02] MEDS ORDERED: cefTRIAXone IV Push 1 GM VIAL. IVP ONE (20:15)
[2019-08-02 20:32] VITALS: BP 149/72
== END 2019-08-02 18:42 | disposition home or self-care (01) ==
LOC: ER 18:03
DX: N39.0 Urinary tract infection, site not specified (principal); D64.9 Anemia, unspecified; R31.9 Hematuria, unspecified; I11.9 Hypertensive heart disease without heart failure; E11.9 Type 2 diabetes mellitus without complications; Z95.0 Presence of cardiac pacemaker; Z95.5 Presence of coronary angioplasty implant and graft; Z95.1 Presence of aortocoronary bypass graft; Z90.79 Acquired absence of other genital organ(s); Z88.2 Allergy status to sulfonamides; Z91.011 Allergy to milk products
CPT/HCPCS: 36415; 80053; 81001; 83605; 85025; 85610; 85730; 87086; 96374; 99285; J0696

== ENCOUNTER → 2021-01-13 | Outpatient (CLI) | payer MEDICARE ==
[~2021-01-13] MED LIST changes: -AMIO200T4 PO; +AMIO200T6 PO; +LISI10TA16; -LISI10TA2
--- NOTE | 2021-01-13 14:44 | KCIC ---
EXAM: Lumbar spine, 5 views. HISTORY: Pain. COMPARISON: None. FINDINGS: 5 views of the lumbar spine are obtained. There is lumbar dextroscoliosis centered at L3-L4 . There is mild retrolisthesis at multiple levels. There is multilevel endplate remodeling. There is facet arthropathy and disc space narrowing predominantly at L4-L5 and L5-S1. There is atherosclerotic plaque within the aorta and main aortic branch vessels. There is a suspected ectatic abdominal aorta . There are cardiac pacemaker defibrillator leads of the superior margin of the [id number]. IMPRESSION: 1. Multilevel degenerative change, primarily at the mid lower lumbar levels. 2. No acute osseous finding. Electronically signed by: Marisa Bryan MD (01/13/2021 2:42 PM) [id number]
== END ==
LOC: EDBD → KCIC 14:08
PROVIDERS: ATTEND Family Medicine
DX: M47.817 Spondylosis without myelopathy or radiculopathy, lumbosacral region (principal); M48.07 Spinal stenosis, lumbosacral region; M41.86 Other forms of scoliosis, lumbar region; M43.16 Spondylolisthesis, lumbar region; I70.0 Atherosclerosis of aorta
CPT/HCPCS: 72110

== ENCOUNTER → 2021-01-22 | Outpatient (CLI) | payer MEDICARE ==
--- NOTE | 2021-01-22 09:31 | RAD ---
EXAMINATION: US ABDOMEN COMPLETE INDICATION: 85 years, Female, abnormal liver function test. COMPARISON: 01/15/2018 TECHNIQUE: Grayscale, color Doppler and limited spectral Doppler images of the abdomen were obtained. FINDINGS: LIVER: SIZE (LENGTH): 17.3 cm. ECHOGENICITY: Increased PARENCHYMA: Heterogeneous echotexture. No discrete focal lesion. INTRAHEPATIC BILE DUCTS: Nondilated. PORTAL VEIN: Patent with normal hepatopedal flow. GALLBLADDER: GALLBLADDER WALL THICKNESS: 3 mm MORPHOLOGY: Normal morphology. No wall hyperemia or pericholecystic free fluid. LUMEN: Normal. COMMON BILE DUCT DIAMETER: 0.9 cm, similar to prior exam. RIGHT KIDNEY: MEASURES: 11.0 cm in length MORPHOLOGY/PARENCHYMA: Normal corticomedullary differentiation with no shadowing calculus. There is a 2.0 cm simple appearing cyst in the upper pole, unchanged since prior exam. COLLECTING SYSTEM: No hydronephrosis. LEFT KIDNEY: MEASURES: 10.2 cm in length MORPHOLOGY/PARENCHYMA: Normal corticomedullary differentiation with no shadowing calculus or discrete masses. COLLECTING SYSTEM: No hydronephrosis. SPLEEN: SIZE (LENGTH): 11.3 cm PARENCHYMA: Unremarkable. PANCREAS: Obscured by overlying bowel gas. OTHER: RETROPERITONEUM, INFERIOR VENA CAVA: Normal caliber. AORTA: Normal caliber measures up to 2.8 cm cm in the midsegment. FLUID:No free fluid. IMPRESSION: 1. Mild to moderate diffuse hepatic steatosis. 2. Dilated proximal common bile duct measures up to 0.9 cm, unchanged since prior exam. No intrahepat ic biliary ductal dilatation. Recommend further evaluation with total bilirubin level and may conside r MRCP for evaluation of distal obstruction, as warranted. 3. 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 Abdominal aortic aneurysm measuring 2.6-2.9 cm as above. Recomm end follow-up ultrasound or CTA in 5 years per ACR and SVS recommendations. 4. Stable 2.0 cm simple right renal cyst. Electronically signed by: Héctor Hill MD (01/22/2021 8:59 AM) [id number]
== END ==
LOC: EDSEX → US 06:32
PROVIDERS: ATTEND Family Medicine
DX: K76.0 Fatty (change of) liver, not elsewhere classified (principal); R94.5 Abnormal results of liver function studies; I71.4 Abdominal aortic aneurysm, without rupture; N28.1 Cyst of kidney, acquired
CPT/HCPCS: 76700

== ENCOUNTER → 2021-10-20 | Outpatient (CLI) | payer MEDICARE ==
[~2021-10-20] MED LIST changes: +ACET325T21 PO; +AMIO200T53 PO; -AMIO200T6 PO; +ATOR20TA58 PO; +CETI10TA74 PO; +CHOL4POW11 PO; +CYAN500T7 PO; +DICL112S2 TP; +DIPH25TA24 PO; +DONE10TA61 PO; +MEMA10TA PO; +METO25TA2 PO; +PREG50CA91 PO; +SODI104S NS
--- NOTE | 2021-10-20 15:07 | PDOC1 ---
INITIAL PAIN CONSULT DATE OF SERVICE: DOS: DATE: 10/20/21 TIME: 14:58 CHIEF COMPLAINT: Chief Complaint: Low back and right lower extremity pain HISTORY OF PRESENT ILLNESS: 86-year-old male presents history of pain low back and right lower extremity for about 2 years increasing with time not result of any specific injury or accident that he is aware but getting worse over time cannot stand for very long more t billingsley about 5 minutes patient reports is worse with standing and a still position such as at a desk or countertop patient reports is better with walking and moving around but still significantly painful after about 15 to 20 minutes he has to sit and rest with the walking patient reports in the low back rating the right lower extremity right foot leg in the back posterior gluteus posterior lateral thigh lateral anterior thigh anterior medial thigh and medial and posterior calf as well patient reports is constant sharp in the back intermittent intensity and radiating in the right leg with shooting cramping pain can be burning and hot and perception as well. Patient reports a disability rating 0-10 10 being the worst is a 7 family home responsibilities and social activity 2 with self-care and life support activities specially sleeping. Patient wears a CPAP machine at night as well which makes sleep even more difficult when he is uncomfortable has to change positions frequently. Patient reports it does affect his ability to walk significantly does not affect his bowel bladder control however he usually goes to [facility] daily to walk is lo ng as he can tolerate it and uses a shopping cart to lean on which does help. Patient does not use any other assistive devices canes or walkers normally. Patient has had physical therapy which he felt made the pain worse he is taking [id number] extra strength Tylenol as well as the melatonin to help him sleep which does help. Patient reports no loss of motor function but s ignificant fatigability the right lower extremity compared to the left. Patient reports no bowel or bladder incontinence. 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 Robles TP BID PRN 30 10/20/21 Reported Vitamin B-12 (Cyanocobalamin (Vitamin B-12)) 500 Mcg Tablet 1 Tab PO DAILY 30 10/20/21 Reported Acetaminophen 325 Mg Tablet 1 Tab PO PRN DAILY PRN 30 10/20/21 Reported [place] (Sodium Chloride) 104 Ml [place] 104 Ml NS PRN PRN 10/20/21 Reported Lyrica (Pregabalin) 50 Mg Capsule 1 Cap PO BID 10/20/21 Reported Namenda (Memantine Hcl) 10 Mg Tablet 1 Tab PO BID 10/20/21 Reported Aricept (Donepezil Hcl) 10 Mg Tablet 1 Tab PO QHS 30 10/20/21 Reported Diphenhydramine Hcl 25 Mg Tablet 25 Mg PO HS PRN 10/20/21 Reported Questran Packet (Cholestyramine (With Sugar)) 4 Gm Powd.pack 4 Gm PO PRN PRN 10/20/21 Reported Zyrtec (Cetirizine Hcl) 10 Mg Tablet 1 Tab PO DAILY 10/20/21 Reported Atorvastatin Calcium 20 Mg Tablet 1 Tab PO DAILY 10/20/21 Reported Toprol Xl (Metoprolol Succinate) 25 Mg Tab.er.24h 12.5 Mg PO DAILY 10/20/21 Reported Eliquis (Apixaban) 5 Mg Tablet 5 Mg PO BID 06/11/19 Reported Colace (Docusate Sodium) 100 Mg Capsule 1 Cap PO BID 30 06/11/19 Reported Flonase Allergy Relief (Fluticasone Propionate) 9.9 Ml [place].susp 2 Sprays NS DAILY 06/11/19 Reported Ferrous Sulfate 325 Mg Tablet 1 Tab PO DAILY 06/11/19 Reported Centrum Silver Chewable Tablet (Folic Acid/Multivits-Min/Lut) 1 Each Tab.chew 1 Each PO ONCE 06/11/19 Reported [melatonin] 10 Mg PO QHS 12/07/17 Reported ALLERGIES; Allergies: Coded Allergies: Milk Containing Products (Verified Allergy, Intermediate, 06/10/19) Sulfa (Sulfonamide Antibiotics) (Verified Allergy, Mild, 06/11/19) FAMILY HISTORY: Family Hx: Heart disease, diabetes SOCIAL HISTORY: Social Hx: He drinks alcohol about once a month, does not smoke says any illegal illicit or recreational drugs is lives with his spouse and his stepdaughter patient is currently retired and lives locally in [facility] REVIEW OF SYSTEMS: ROS: Positive for those items mentioned in history of present illness, all systems are reviewed, otherwise negative ,and are complete full and well-documented on patient's chart. PHYSICAL EXAM: VS: Blood pressure is 147/76 pulse 88 respirations 16 temperature 97.6 F height is 5 feet 6 inches weight is 155 pounds. PE: PHYSICAL EXAMINATION: GENERAL: The patient is awake, alert, oriented, appropriate, very pleasant in demeanor HEENT: Shows normocephalic, with prosthetic eye on the left. Oral cavity: Mucous membranes moist and pink. NECK: Shows anterior throat supple without palpable lymphadenopathy noted. Swallow reflex symmetrical. CHEST: Shows normal on inspection. Breath sounds are clear bilaterally, distant and coarse but no rales rhonchi or wheezes auscultated bilaterally. HEART: Shows S1, S2 clear. No murmurs auscultated. ABDOMEN: Soft, nontender, nondistended. No palpable organomegaly is noted. BACK: Shows spine grossly in the midline. Normal-appearing cervical lordotic curvature. There is mildly increased thoracic kyphosis, some mild flattening of the lumbar lordotic curvature. Lumbar paraspinous muscles show symmetrical on inspection, on palpation shows some moderate tenderness diffusely throughout the upper, middle and lower distribution of the paraspinous muscles bilaterally and also into the lower thoracic paraspinous musculature, firm and tender, but without specific trigger points, without radiation of pain. The patient has good rotational motion of the lumbar spine, both laterally as well as extension and flexion without significant difficulty. No tenderness over the spinous processes, sacrum or sacroiliac regions. EXTREMITIES: Lower extremities show deep tendon reflexes 1+ in the patellar and tendo calcaneus tendons. Motor exam is positive on a scale of 5 with right dorsiflexion, extension, quadriceps and hamstring flexion and 5/5 on the left. Peripheral pulses are 1+ posterior tibial. No peripheral edema is noted bilaterally. Lower extremities are warm and dry to touch, equal in color and appearance. Straight leg raise noted to be positive on the right about 40-45 degrees, left side is negative. Gaenslen's and Fabian's maneuvers are negative bilaterally. The patient is able to stand, has difficulty trying to stand on his toes as he loses balance putting all his weight on his right leg. Patient is ambulating with a significant favoring gait favoring the right lower extremity not use any assistive devices on his visit today. SKIN: Shows warm and dry, good turgor. No edema. No sores, rashes or bruising throughout. IMPRESSION: Impression: 86-year-old male with long history proximate 2 years increasing low back right lower extremity pain and radicular fashion. Plain films lumbar spine with multilevel endplate remodeling facet arthropathy and disc space narrowing predominate L4-5 and L5-S1 Arthritis Hypertension Peripheral vascular disease Diabetes COPD Plan: Options were discussed with the patient including conservative managements physical therapies and interventional techniques. Patient would like to pursue interventional techniques. We discussed a lumbar epidural steroid injection using description as well as anatomical models to describe the procedure. We will first check with patient's manager of data for clearance regarding patient's Eliquis and if deemed safe and appropriate to hold this for 3 days prior to return we will have him hold this and return for lumbar epidural steroid injection at that time. In the meantime, patient will continue with stretching strength exercises as well as actively walking daily as tolerated. MARA FLORES MD Oct 20, 2021 15:07
== END | disposition home or self-care (01) ==
LOC: PNCL 08:21
PROVIDERS: ATTEND Anesthesiology
DX: M79.604 Pain in right leg (principal); M54.50 Low back pain, unspecified; I10 Essential (primary) hypertension; J44.9 Chronic obstructive pulmonary disease, unspecified; G47.30 Sleep apnea, unspecified; M19.90 Unspecified osteoarthritis, unspecified site; I73.9 Peripheral vascular disease, unspecified; E11.9 Type 2 diabetes mellitus without complications; I25.10 Atherosclerotic heart disease of native coronary artery without angina pectoris; I48.91 Unspecified atrial fibrillation; E78.00 Pure hypercholesterolemia, unspecified; F41.9 Anxiety disorder, unspecified; Z87.891 Personal history of nicotine dependence; Z79.899 Other long term (current) drug therapy; Z98.890 Other specified postprocedural states; Z72.89 Other problems related to lifestyle; Z88.2 Allergy status to sulfonamides; Z88.8 Allergy status to other drugs, medicaments and biological substances
CPT/HCPCS: G0463

== ENCOUNTER → 2021-10-26 | Outpatient (CLI) | payer MEDICARE ==
[~2021-10-26] MED LIST changes: +IOHEXOL 180 MG/ML 10 ML VIAL. ONE; +methylPREDNISolone ACETATE 40 MG/ML VIAL. ONE; +methylPREDNISolone ACETATE 80 MG/ML VIAL. ONE
--- NOTE | 2021-10-26 14:43 | PDOC4 ---
Procedure Note: ICD 10 Code: ICD 10 Code: M54.16 M51.36 M48.06 Procedure Note: Patient was consented for lumbar epidural steroid injection fluoroscopic guidance. Risks were discussed including but not limited to: Bleeding, infection, possibility of epidural hematoma and subsequent neurological compromise, dural puncture, headaches, spinal cord and/or nerve damage, side effects of steroid medication, and poor results regarding pain control. Patient understands and wished to proceed. Procedure is lumbar epidural steroid injection under local anesthetic using sterile prep and drape at the L4-5 level using C-arm fluoroscopic guidance in both AP and lateral views medications injected is 120 mg methylprednisolone +10mL preservative-free normal saline and 2 mL contrast- condition at discharge is stable patient tolerated procedure well had no complications. MARA FLORES MD Oct 26, 2021 14:43
--- NOTE | 2021-10-26 14:43 | PDOC ---
Progress Note - Pain Clinic Date of Service: DOS: DATE: 10/26/21 TIME: 14:40 Diagnosis: Dx: Lumbar radiculopathy with lumbar degenerative disc disease and lumbar spinal stenosis History or Present Illness: HPI: 86-year-old male returns for follow-up status post initial valuation clearance to hold his Eliquis he is in office for 3 days now and reports still significant pain low back and right lower extremity posterior gluteus posterior lateral thigh lateral anterior thigh anteromedial thigh medial lower leg into the calf as well posteriorly on the right side only. Patient reports it feels cold on the right side also aching and dull painful aching in the back as well and sharp pain in the leg. Patient rates his pain is 8 on scale 10 is worse over the past week 6 on average to its least and is a 6 today. Patient reports no bowel or bladder incontinence no loss of motor function with significant fatigability of the right leg with ambulation. Patient reports is better with sitting or lying down generally does not awaken her from sleep. Physical Exam: VS: Blood pressure is 132/64 pulse 60 respirations 16 temperature 97.9 F weight is 155 pounds. PE: PHYSICAL EXAMINATION: GENERAL: The patient is awake, alert, oriented, appropriate, very pleasant in demeanor HEENT: Shows normocephalic, atraumatic. Extraocular movements are intact and symmetrical. Oral cavity: Mucous membranes moist and pink. NECK: Shows anterior throat supple without palpable lymphadenopathy noted. Swal low reflex symmetrical. CHEST: Shows normal on inspection. Breath sounds are clear bilaterally, no rales or rhonchi auscultated. HEART: Shows S1, S2 clear. No murmurs auscultated. ABDOMEN: Soft, nontender, nondistended. No palpable organomegaly is noted. BACK: Shows spine grossly in the midline. Normal-appearing cervical lordotic curvature. There is slightly increased thoracic kyphosis, some minor flattening of the lumbar lordotic curvature. Lumbar paraspinous muscles show symmetrical on inspection, on palpation shows some moderate tenderness diffusely throughout the upper, middle and lower distribution the paraspinous musculature, but without specific trigger points, without radiation of pain. The patient has good rotational motion of the lumbar spine, both laterally as well as extension and flexion without significant difficulty. EXTREMITIES: Lower extremities show deep tendon reflexes 1+ in the patellar and tendo calcaneus tendons. Motor exam is 4 on a scale of 5 with right dorsiflexion, extension, quadriceps and hamstring flexion and 5/5 on the left. Peripheral pulses are 1+ posterior tibial. No peripheral edema is noted bilaterally. Lower extremities are warm and dry. SKIN: Shows warm and dry, good turgor. No edema. No sores, rashes or bruising throughout. Procedure: Procedure: Options discussed with patient. Patient's old chart was reviewed his current medication regimen updated current review of systems updated today as well. We will proceed with a lumbar epidural steroid injection today with fluoroscopic guidance. Risks were discussed including but not limited to: Bleeding, infec tion, possibility of epidural hematoma and subsequent neurological compromise, dural puncture, headaches, spinal cord and/or nerve damage, side effects of steroid medication, and poor results regarding pain control. Patient understands and wished to proceed. Patient will return to clinic in approximately 2 weeks for follow-up, was counseled as to return appointment, activity level, and side effects to be aware of. Medication Injected: Med Injected: Procedure is lumbar epidural steroid injection under local anesthetic using sterile prep and drape at the L4-5 level using C-arm fluoroscopic guidance in both AP and lateral views medications injected is 120 mg methylprednisolone +10mL preservative-free normal saline and 2 mL contrast- condition at discharge is stable patient tolerated procedure well had no complications. Condition at Discharge: Condition at Discharge: Condition at discharge stable, patient Joni the procedure well and had no comp lications. MARA FLORES MD Oct 26, 2021 14:43
== END | disposition home or self-care (01) ==
LOC: PNCL 13:34
PROVIDERS: ATTEND Anesthesiology
DX: M51.16 Intervertebral disc disorders with radiculopathy, lumbar region (principal); M48.061 Spinal stenosis, lumbar region without neurogenic claudication; I25.10 Atherosclerotic heart disease of native coronary artery without angina pectoris; I10 Essential (primary) hypertension; I48.91 Unspecified atrial fibrillation; E78.00 Pure hypercholesterolemia, unspecified; K21.9 Gastro-esophageal reflux disease without esophagitis; E11.9 Type 2 diabetes mellitus without complications; M19.90 Unspecified osteoarthritis, unspecified site; F41.9 Anxiety disorder, unspecified; Z79.899 Other long term (current) drug therapy; Z98.890 Other specified postprocedural states; Z87.891 Personal history of nicotine dependence; Z72.89 Other problems related to lifestyle; Z88.2 Allergy status to sulfonamides; Z88.8 Allergy status to other drugs, medicaments and biological substances
CPT/HCPCS: 62323; J1030; J1040; Q9965

== ENCOUNTER → 2021-11-16 | Outpatient (CLI) | payer MEDICARE ==
[~2021-11-16] MED LIST changes: -IOHEXOL 180 MG/ML 10 ML VIAL. ONE; -methylPREDNISolone ACETATE 40 MG/ML VIAL. ONE; -methylPREDNISolone ACETATE 80 MG/ML VIAL. ONE
--- NOTE | 2021-11-16 13:59 | PDOC ---
Progress Note - Pain Clinic Date of Service: DOS: DATE: 11/16/21 TIME: 13:56 Diagnosis: Dx: Lumbar radiculopathy with lumbar degenerative disease and lumbar spinal stenosis History or Present Illness: HPI: 86-year-old male returns for follow-up status post lumbar epidural steroid injection x1. Patient reports near Hund percent improvement in the back and right lower extremity pain patient reports he is increase his activity since about 1 to 2 days after his injection with almost no pain patient reports some mild pain in the low back only but no more radiation into the right lower extremity patient rates as a 2 on scale 10 is worse over the past week 1 on average 0 at its least, and is a 1 today. Patient reports no loss of motor function no bowel or bladder incontinence reports his pain is dull in the back on and off in intensity he is increase his activity with greater distance walking doing household activities travel with greater ease and comfort sleeping better at night does not awaken her from sleep. Patient reports no bowel or bladder incontinence no loss of motor function no significant fatigability. Patient is very pleased with his progress thus far reports it is still helping and has no bowel or bladder incontinence patient Physical Exam: VS: Blood pressure is 120/65 pulse 57 respirations 18 temperature is 97.7 F weight is 165 pounds. PE: PHYSICAL EXAMINATION: GENERAL: The patient is awake, alert, oriented, appropriate, very pleasant in demeanor HEENT: Shows normocephalic, atraumatic. Extraocular movements are intact and symmetrical, discoloration of the left eye. Oral cavity: Mucous membranes moist and pink. NECK: Shows anterior throat supple without palpable lymphadenopathy noted. Swallow reflex symmetrical. CHEST: Shows normal on inspection. Breath sounds are clear bilaterally, distant but no rales rhonchi or wheezes auscultated. HEART: Shows S1, S2 clear. No murmurs auscultated. ABDOMEN: Soft, nontender, nondistended. No palpable organomegaly is noted. No rebound or guarding demonstrated. BACK: Shows spine grossly in the midline. Normal-appearing cervical lordotic curvature. There is slightly increased thoracic kyphosis, some minor flattening of the lumbar lordotic curvature. Lumbar paraspinous muscles show symmetrical on inspection, on palpation shows some moderate tenderness diffusely throughout the upper, middle and lower distribution of the paraspinous muscles without specific trigger points, without radiation of pain. The patient has good rot ational motion of the lumbar spine, both laterally as well as extension and flexion without significant difficulty. EXTREMITIES: Lower extremities show deep tendon reflexes 1+ in the patellar and tendo calcaneus tendons. Motor exam is 4 on a scale of 5 with right dorsiflexion, extension, quadriceps and hamstring flexion and 5/5 on the left. Peripheral pulses are 1+ posterior tibial. No peripheral edema is noted bilaterally. Lower extremities are warm and dry. SKIN: Shows warm and dry, good turgor. No edema. No sores, rashes or bruising throughout. Procedure: Procedure: Options discussed with patient. Patient's old chart was reviewed his current medication regimen updated current review of systems updated today as well. As patient is doing quite a better we will hold on any further injections at this time. Patient was encouraged increase activity as tolerated caution with extensive lifting and standing and bending stooping activities. Patient understands and will follow up at this time on as-needed basis. Medication Injected: Med Injected: None Condition at Discharge: Condition at Discharge: Condition at discharge is stable. MARA FLORES MD November 16, 2021 13:59
== END | disposition home or self-care (01) ==
LOC: PNCL 13:09
PROVIDERS: ATTEND Anesthesiology
DX: M51.16 Intervertebral disc disorders with radiculopathy, lumbar region (principal); M48.061 Spinal stenosis, lumbar region without neurogenic claudication; I25.10 Atherosclerotic heart disease of native coronary artery without angina pectoris; I10 Essential (primary) hypertension; I48.91 Unspecified atrial fibrillation; K21.9 Gastro-esophageal reflux disease without esophagitis; M19.90 Unspecified osteoarthritis, unspecified site; E11.9 Type 2 diabetes mellitus without complications; F41.9 Anxiety disorder, unspecified; Z87.891 Personal history of nicotine dependence; Z72.89 Other problems related to lifestyle; Z98.890 Other specified postprocedural states; Z79.899 Other long term (current) drug therapy
CPT/HCPCS: 99212; G0463